=== PATIENT | male | born 1980 | race Caucasian/White ===

== ENCOUNTER → 2022-05-30 12:35 | Outpatient (BNVA) | payer MEDICARE, MEDICAID, SELFPAY | PROVIDERS: Visit Provider Nurse Practitioner Family | DX: B00.9 Herpesviral infection, unspecified (principal); F41.9 Anxiety disorder, unspecified; F20.9 Schizophrenia, unspecified; N52.9 Male erectile dysfunction, unspecified; E78.2 Mixed hyperlipidemia; Z76.89 Persons encountering health services in other specified circumstances; Z79.899 Other long term (current) drug therapy | CPT/HCPCS: 80053; 80061 ==

== ENCOUNTER → 2022-08-12 09:53 | Outpatient (BNVA) | payer MEDICARE, MEDICAID, SELFPAY | PROVIDERS: PCP Nurse Practitioner Family; Visit Provider Nurse Practitioner Family | DX: K59.00 Constipation, unspecified (principal) | CPT/HCPCS: 74018 ==

== ENCOUNTER 2022-09-02 07:45 | Emergency (ER) | payer MEDICARE, MEDICAID, SELFPAY ==
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
[2022-09-02 07:47] VITALS: BP 143/78; PULSE 79; RESP 18; TEMP 36.4; O2SAT 99; BMI 29.4
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
[2022-09-02] MEDS: orphenadrine 30 mg/mL Inj 2 mL 60 MG IM (08:31)
[2022-09-02] MEDS: ketorolac 30 mg/mL INJ 60 MG IM (08:31)
[2022-09-02 08:32] VITALS: BP 142/70
== END 2022-09-02 08:34 | disposition home or self-care (01) ==
PROVIDERS: Emergency Provider Family Medicine; PCP Nurse Practitioner Family
DX: S39.012A Strain of muscle, fascia and tendon of lower back, initial encounter (principal); V89.2XXA Person injured in unspecified motor-vehicle accident, traffic, initial encounter; M62.830 Muscle spasm of back
CPT/HCPCS: 72100; 80307; 96372; 99284; J1885; J2360

== ENCOUNTER 2023-07-22 15:41 | Inpatient (IN) | payer MEDICARE, OTHER, SELFPAY ==
[2023-07-22 16:04] VITALS: BP 111/62; PULSE 114; RESP 18; TEMP 36.7; O2SAT 99; BMI 27.2
--- NOTE | 2023-07-22 16:11 | ECG_ITS ---
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 Measurements Intervals [place] Rate: 115 P: 57 CA: 171 QRS: 40 QRSD: 88 T: 29 QT: 308 QTc: 426 Interpretive Statements SINUS TACHYCARDIA ABNORMAL RHYTHM ECG No previous ECG available for comparison Electronically Signed On 07-23-2023 10:53:08 CDT by Alverto Rivera M.D. [email or web address]
--- NOTE | 2023-07-22 16:20 | PC.PHAR ---
PT STATES HAS TAKEN PAIN MEDICATIONS IN THE PAST. NOT CURRENT MEDICATIONS ON PT PROFILE (LAST FILLED MEDS 10/2022)
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
[2023-07-22 16:58] LABS: Basophils # 0.1 10^3/uL (0.0-0.1); Basophils % 0.7 %; Eosinophils # 0.4 10^3/uL (0.0-0.8); Eosinophils % 2.8 %; Hematocrit 38.3 % (37-53); Lymphocytes # 1.2 10^3/uL (0.8-4.8); Lymphocytes % 9.2 %; Mean Corpuscular HGB Conc 32.4 g/dL (30-55); Mean Corpuscular Hemoglobin 27.3 pg (27-33); Mean Corpuscular Volume 84.2 fl (82-101); Mean Platelet Volume 9.4 fL (7.4-10.4); Monocytes # 0.7 10^3/uL (0.2-0.9); Monocytes % 5.5 %; Neutrophils # 10.44 10^3/uL (1.8-7.7); Neutrophils % 81.6 %; Nucleated Red Blood Cells % 0 %; Platelet Count 556 10^3/cmm (157-399); Red Blood Count 4.55 10^6/uL (3.85-5.65); Red Cell Distribution Width 14.9 % (12.1-15.1); White Blood Count 12.81 10^3/uL (3.29-11.43)
--- NOTE | 2023-07-22 17:06 | PC.NURSE ---
pt arrived to ed with wound to left ankle and back. pt had ankle surgery. pt does not remember when surgery was. pt had skin graft to left ankle. wound cleansed with saline and dressed with telfa/abd/kerlix and 6inch elastic bandage.
[2023-07-22 17:21] LABS: Alanine Aminotransferase 14 U/L (0-41); Albumin Level 4.1 g/dL (3.5-5.2); Alkaline Phosphatase 130 U/L (40-130); Anion Gap 16.7 (5-19); Aspartate Amino Transferase 11 U/L (0-40); Blood Urea Nitrogen 5 mg/dL (6-20); Calcium 9.7 mg/dL (8.5-10.5); Carbon Dioxide 25 mmol/L (22-29); Chloride 99 mmol/L (98-107); Globulin 3.7 g/dL (1.3-4.6); Glomerular Filtration Rate 145.7 mL/min (90-130); Glucose 86 mg/dL (65-115); Osmolality Calculated 281 mOsm/kg (285-295); Potassium 3.7 mmol/L (3.5-5.1); Sodium 137 mmol/L (136-145); Total Bilirubin 0.2 mg/dL (0.15-1.2); Total Protein 7.8 g/dL (6.6-8.7)
[2023-07-22 17:23] LABS: Acetaminophen < 5.0 ug/mL (10-30); Alcohol Level < 10 mg/dL (0-10); Salicylate < 0.3 mg/dL (3-10)
--- NOTE | 2023-07-22 18:24 | XRR_ITS ---
PROCEDURE INFORMATION: Exam: XR Left Tibia and Fibula Exam date and time: 07/22/2023 6:31 PM Age: 43 years old Clinical indication: Prior surgery; Surgery date: <1 month; Surgery type: Orif; Patient HX: C/O left lower leg pain; Additional info: Post op eval TECHNIQUE: Imaging protocol: Radiologic exam of the left tibia and fibula. Views: 2 views. COMPARISON: No relevant prior studies available. FINDINGS: Bones/joints: Old screw tracts are seen in the proximal/mid tibial diaphysis. There are jimbo and screw fixation of the tibiotalar joint postoperative changes present. There is a fracture of the medial malleolus with mild displacement present. There is likely also a healing fracture in the distal tibial metadiaphysis. There appears to be a displaced fragment of the lateral dome of the talus adjacent to the jimbo. Partially seen hindfoot fusion change. Jimbo fusion is also seen in a comminuted distal fibular fracture with near anatomic alignment. There may also be a healing nondisplaced fracture in the dome of the talus. Soft tissues: Mild soft tissue swelling. Skin sheri. XR/XR tibia fibula LT 2V 12106 IMPRESSION: ORIF for fusion of the tibiotalar joint in the distal fibula as described. Healing distal tibia and fibular fractures. Possible additional talar fractures.
[2023-07-22 20:34] VITALS: BP 150/79; PULSE 95; RESP 18; TEMP 37.1; O2SAT 97
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
[2023-07-22] MEDS: OLANZapine 5 mg ODT PO (21:40)
[2023-07-22] MEDS: ibuprofen 800 mg tablet PO (21:40)
[2023-07-22] MEDS: trazodone 50 mg Tablet PO (21:40)
[2023-07-22] MEDS: neomycin-poly-bacitracin oint 28 gm 1 APPLIC TOPICAL (21:53)
[2023-07-22 21:55] LABS: Add Urine Microscopic? YES; Bilirubin Urine Neg (Negative); Blood Urine Neg (Negative); Glucose Urine UA Norm (Normal); Ketones Urine 1+ (Negative); Leukocyte Esterase Urine Trace (Negative); Nitrate Urine Negative (Negative); Protein Urine Trace (Negative); Urine Appearance Cloudy (CLEAR); Urine Color Yellow (Yellow); Urobilinogen Urine Neg (Negative); pH Urine 5 (5-7)
[2023-07-22 21:56] LABS: Add Urine Culture? No; Amorphous Sediment Urine 1+ /hpf; Bacteria Urine TRACE /hpf; Calcium Oxalate Crystals Urine 15-25 /hpf; Mucus Urine 3+ /hpf; RBC Urine 0-4 /hpf (0-2); Squamous Epithelial Cell Urine 0-4 /hpf (0-5); WBC Urine 0-4 /hpf (0-5)
[2023-07-22 21:57] LABS: Amphetamines Screen Urine Negative (Negative); Barbiturates Screen Urine Negative (Negative); Benzodiazepines Screen Urine Negative (Negative); Cocaine Screen Urine Negative (Negative); Opiate Screen Urine Negative (Negative); PCP Screen Urine Negative (Negative); THC Screen Urine Negative (Negative)
--- NOTE | 2023-07-22 23:00 | PC.NURSE ---
PT CONTINUES TO BE EXTREMELY AGITATED CUSSING AT NURSING STAFF, DEMANDING DILAUDID FOR PAIN. DR. JERNIGAN NOTIFIED OF AGITATION. NEW ORDERS RECEIVED FOR GEODON 20 MG IM BID PRN AGITATION AND OR GEODON 40 MG PO BID AGITATION. ORDERS PLACED. NO NEW ORDERS WERE RECEIVED FOR PAIN. EDUCATION PROVIDED TO PT. PT CONTINUES TO CUSS AND SCREAM AT THIS TIME.
[2023-07-22] MEDS: ziprasidone 20 mg/mL SDV (23:19)
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
--- NOTE | 2023-07-23 01:21 | PC.NURSE ---
DR. STRONG FROM ER CALLED THIS RN AND GAVE ORDERS FOR PAIN CONTROL FOR LEFT FOOT. NEW ORDERS RECEIVED PERCOCET 5/325MG 1-2 TABS PO Q 6 HOURS PRN FOR PAIN. ORDERS PLACED. WENT TO EDUCATE PT BUT PT IS CURRENTLY RESTING WITH EYES CLOSED.
[2023-07-23 06:00] VITALS: RESP 16
[2023-07-23] MEDS: neomycin-poly-bacitracin oint 28 gm 1 APPLIC TOPICAL (09:51)
[2023-07-23 10:23] VITALS: RESP 17
[2023-07-23] MEDS: oxyCODONE-APAP 5-325 mg Tablet PO ×3 (10:23→23:53)
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
--- NOTE | 2023-07-23 13:20 | PC.NURSE ---
Patient stated he got sheri placed when he was at [facility] in [place], [place]. This RN attempted to call medical records, but they were closed. A nurse at [facility] was able to see that he had a joint and left ankle fusion in June, but did not have an exact date. Patient stated he believed they were placed about 3 weeks ago.
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
[2023-07-23 14:00] VITALS: BP 146/71; PULSE 106; RESP 18; TEMP 36.7; O2SAT 93
[2023-07-23] MEDS: LORazepam 2 mg Tablet PO (16:37)
[2023-07-23] MEDS: docusate sodium 100 mg Capsule PO (16:37)
--- NOTE | 2023-07-23 16:45 | PC.NURSE ---
Patient refused abilify po. He stated, why does the fucking doctor give out psychotropics? Why do I even fucking need this? I'm not taking no fucking psychotropics. This RN attempted to explain to him what abilify was used for, but he continued to talk even louder saying, it'll make me fucking fat. I'll take the stool softener. I'm not taking any of the other fucking pills.
--- NOTE | 2023-07-23 17:45 | PC.NURSE ---
At 1745 a copy of the patient's 96 Hour Hold Rights were given to the patient. Resident Medical Officer, Vick Morillo, was present at the time of presentation and reading of rights by salesperson household appliances, Heather Carmen. All questions answered.
[2023-07-23 17:53] VITALS: RESP 16
[2023-07-23] MEDS: ARIPiprazole 10 mg Tablet 5 MG PO (17:54)
[2023-07-23] MEDS: ibuprofen 800 mg tablet PO (20:12)
[2023-07-23 20:18] VITALS: BP 107/53; PULSE 109; RESP 16; TEMP 37.1; O2SAT 95
--- NOTE | 2023-07-23 22:32 | PC.NURSE ---
While speaking w/physician regarding pt back wound status, as well as behaviors NO received and noted to increase Abilify to 10mg qd beginning in the am.
[2023-07-23 23:53] VITALS: RESP 16
[2023-07-24] MEDS: calcium carbonate 500 mg Chew Tablet 1000 MG PO (03:08)
[2023-07-24 06:00] VITALS: BP 132/85; PULSE 84; RESP 17; TEMP 36.7; O2SAT 98
--- NOTE | 2023-07-24 09:02 | PC.NURSE ---
During assessment patient stated that he didn't want any psychotropic drugs from the doctor. 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 Patient stated that when he is on psychiatric drugs, he looks crazy and this makes him unhireable.
[2023-07-24] MEDS: ARIPiprazole 10 mg Tablet PO (09:08)
[2023-07-24 09:13] VITALS: RESP 16
[2023-07-24] MEDS: ibuprofen 800 mg tablet PO ×2 (09:13→16:42)
[2023-07-24] MEDS: oxyCODONE-APAP 5-325 mg Tablet PO ×2 (09:13→14:47)
[2023-07-24] MEDS: neomycin-poly-bacitracin oint 28 gm 1 APPLIC TOPICAL ×2 (09:15→17:53)
--- NOTE | 2023-07-24 09:15 | PC.NURSE ---
Dressing on left foot changed. Purulent drainage observed. [place] intact. Wound cleaned with normal saline. Telfa and THERESE applied to wound. wrapped with JASBIR bandage. Patient tolerated change fair.
--- NOTE | 2023-07-24 11:40 | P.NPUPN_ITS ---
Subjective NPU Subjective: Patient presented today unchanged and still with rambling, irritable banter but seeming to understand being on a hold and needing to take his medication. Continued on 11-13. Mental Status Exam MSE Comments: This is an overweight white male in hospital scrubs with limited grooming but adequate eye contact. Black immobilization boot on his left foot which is elevated. No abnormal movements except for significant psychomotor agitation. Somewhat cooperative with exam and moderate distress. Speech was increased rate and volume and moderately pressured. Mood not specifically described affect hyper/manic. Thought process linear at times but often disorganized with tangentiality and some stream of consciousness. Thought content: Patient denied suicidal or homicidal ideation, there were no delusions reported but clear paranoid, persecutory and grandiose delusions noted some possibly bizarre delusions as well, he denied auditory or visual hallucinations. Attention and concentration were limited and memory appeared intermittently reliable but none were formally tested. He is alert and oriented times person and place. Insight, judgment and impulse control impaired. Vitals/I&O/Wt Last Vital Signs Temp 98.1 F 07/24/23 06:00 Pulse 84 07/24/23 06:00 Resp 16 07/24/23 09:13 BP 132/85 07/24/23 06:00 Pulse Ox 98 07/24/23 06:00 O2 Del Method Room Air 07/23/23 20:18 Weight last 48 hrs Weight 86.183 kg Weight 86.183 kg Data NPU 07/22/23 16:41 07/22/23 16:41 A&P Assessment and plan (1) Mariaa: (2) History of mariaa: (3) Schizoaffective disorder, bipolar type: (4) Postoperative external wound disruption: Plan This is a 43 -year-old, white male, with history of multiple hospitalizations and outpatient services and multiple medication trials with 1 inpatient stay here and some distant outpatient services here who presents with history of addiction with unclear current use and past mental health challenges with clear mariaa on presentation here with history of mariaa. 1. Started Abilify 5 mg p.o. daily and increased to 10 mg tomorrow with ultimate plan for long-acting injectable. 2. Encourage individual, group, and milieu therapy. 3. Continue q-15-minute checks for safety. 4. Patient on 96-hour hold due to psychosis and impairment of impulse control. 5. Consult with dr Rolon fro management of left foot. Involuntary Hold Information 96 Hour Hold: 96 Hour Involuntary Admission: No Attestations NPU 2 Medical Necessity Statement*: Inpatient hospitalization is medically necessary and the clinically appropriate intervention, at this time. We will monitor medications and make changes as indicated. Likely length of stay is 7-10 days. Coding Level of Care Code Acute Code for Chg Fwd Diagnoses Mariaa F30.9 History of mariaa Z86.59 Schizoaffective disorder, bipolar type F25.0 Postoperative external wound disruption T81.31XA
--- NOTE | 2023-07-24 13:47 | P.CONIM_ITS ---
Providers/Reason For Consult Consulting Physician/Specialty*: Ketan Rolon D.P.M. Reason for Consult*: Left ankle fracture Attending Physician: Judd León MD Primary Care Provider: Marielle Grant NP History of Present Illness History of Present Illness Rigo Srivastava is a 43 year old male admitted to Neuro[facility] Unit 07/22/2023 for manic episode, has history of bipolar schizoaffective disorder. History of polysubstance abuse. Patient is a poor historian he states that he has a history of left ankle trauma that he sustained from a fall earlier this year. He members being in an external fixator for a long period of time and several surgeries. He is unable to recall what surgeries were done, where they were done or when they were done exactly. Awaiting records from facility where his procedures were performed. Patient denies any subjective nausea, vomiting, fe or[place], chills, shortness of breath or chest pain. Review of Systems General: Reports: 10 or more systems reviewed and unremarkable except in HPI and below Const: Denies: fever(s) or chills Eyes: Denies: change in vision Card: Denies: chest pain or palpitations Resp: Denies: dyspnea or productive cough GI: Denies: abdominal pain, nausea or vomiting : Denies: flank pain Musc: Reports: extremity swelling, joint stiffness and deformity Skin/Breast: Reports: sores, dry skin and nail changes; Denies: erythema, changes in skin color or change in hair Neuro: Reports: numbness in extremities, sensory changes and difficulty walking Psych: Denies: suicidal ideation Endo: Denies: change in body appearance Eulogio/Lymph: Denies: tender lymph nodes Medications/Allergies Home Medications Medication Instructions Recorded Confirmed Last Taken Type No Known Home Medications 07/22/23 07/22/23 Unknown History Allergies Allergy/AdvReac Type Severity Reaction Status Date / Time diphenhydramine Allergy Unknown Verified 07/22/23 22:53 [From Benadryl] guaifenesin [From Robitussin] Allergy ALGY-Hives Verified 07/22/23 22:53 Current Medications Generic Name Dose Route Start Last Admin Trade Name Freq PRN Reason Stop Dose Admin Aripiprazole 10 mg 07/24/23 09:00 07/24/23 09:08 Aripiprazole 10 Mg Tablet PO 10 mg DAILY LUCERO Administration Calcium Carbonate 1,000 mg 07/24/23 02:53 07/24/23 03:08 Calcium Carbonate 500 Mg Chew Tablet PO 1,000 mg Q4H PRN Administration HEARTBURN Docusate Sodium 100 mg 07/23/23 16:28 07/23/23 16:37 Docusate Sodium 100 Mg Capsule PO 100 mg DAILY PRN Administration CONSTIPATION Ibuprofen 800 mg 07/22/23 19:56 07/24/23 09:13 Ibuprofen 800 Mg Tablet PO 800 mg Q8H PRN Administration ANKLE PAIN Lorazepam 2 mg 07/23/23 16:28 07/23/23 16:37 Lorazepam 2 Mg Tablet PO 2 mg Q4H PRN Administration ANXIETY Neomycin/Polymyxin/Bacitracin 1 applic 07/22/23 21:45 07/24/23 09:15 Fwntxivq-Atwz-Mvpsaykory Oint 28 Gm TOPICAL 1 applic BID LUCERO Administration Olanzapine 5 mg 07/22/23 18:03 07/22/23 21:40 Olanzapine 5 Mg Odt PO 5 mg Q4H PRN Administration Agitation/Psychosis Oxycodone/Acetaminophen 1 - 2 tab 07/23/23 01:17 07/24/23 09:13 Oxycodone-Apap 5-325 Mg Tablet PO 1 tab Q6H PRN Administration MODERATE TO SEVERE PAIN Trazodone HCl 50 mg 07/22/23 18:03 07/22/23 21:40 Trazodone 50 Mg Tablet PO 50 mg BEDTIME PRN Administration SLEEP PFSH Acute PFSH: Social History Smoking and tobacco status: never smoked Vitals/I&O/Wt Last Vital Signs Temp 98.1 F 07/24/23 06:00 Pulse 84 07/24/23 06:00 Resp 16 07/24/23 09:13 BP 132/85 07/24/23 06:00 Pulse Ox 98 07/24/23 06:00 O2 Del Method Room Air 07/23/23 20:18 Weight last 48 hrs Weight 190 lb Weight 190 lb Physical Exam Narrative: GENERAL: Patient is alert and oriented ?3 and in no acute distress. The following is a focused left lower extremity exam. VASCULAR: Dorsalis pedis palpable bilaterally. Posterior tibial arteries palpable. Capillary refill time less than 3 seconds to the distal hallux bilaterally. Calf is supple and nontender proximally and distally. Edema to the left lower extremity. NEUROLOGICAL: Protective sensation intact to light touch. DERMATOLOGICAL: Grade 2 wound with granular base, what appears to be a collagen and silicone bilayer graft secured by sheri at the left medial malleolus measures 6.8 cm x 6.4 cm, no deep structures exposed, no purulence, no periwound erythema. Pin sites x2 at the tibia as well as at the calcaneus are fully epithelialized from external fixator. MUSCULOSKELETAL: No range of motion appreciated to the left ankle or subtalar joint. No crepitus with palpation of adjacent soft tissue surrounding the wound left medial malleolus. Able to wiggle toes on command. No pain with posterior calf squeeze, left. Data 07/22/23 16:41 07/22/23 16:41 A&P Assessment and plan (1) Pilon fracture of left tibia: X-rays right ankle 3 view shows tibial talocalcaneal nail with 2 traversing screws through midshaft of the tibia and 2 calcaneal screws with 1 coursing into the talus crossing the subtalar joint. Skin sheri from bilayer graft also appreciated at the medial left ankle. Able to see remnants from external fixator with 2 tibial pin holes, 1 calcaneal pin hole and the fifth metatarsal pinhole. Intramedullary K wire fixation of the left fibula. Comminuted fracture with loose fragments of the distal diaphysis of the left fibula. Comminuted fracture of the medial malleolus as well as metaphyseal diaphyseal junction of the distal tibia, left extending into the ankle mortise. The articular surfaces of the tibiotalar joint do not appear to be prepped for arthrodesis. Intramedullary nail intact without lucency or failure. Articular surfaces of the subtalar joint also appear intact without having been prepped for arthrodesis. Given the open nature of his fracture his soft tissue may not have been of quality to prep joint for arthrodesis and this may require staged surgical approach of soft tissue healing followed by hardware removal versus arthrodesis at that time. Will require original operative reports and clinical notes to further assess the timeline. Both tibial and fibular fracture show incomplete osseous healing. For this reason patient will require continued nonweightbearing. Qualifiers: Encounter type: sequela Fracture type: open Fracture alignment: nondisplaced (2) Fracture of distal end of left fibula: Qualifiers: Encounter type: sequela Fracture type: open Fracture morphology: other fracture (3) Non-pressure chronic ulcer of left ankle with fat layer exposed: Clinically stable at this time. Advised once daily dressing change of Adaptic, sterile gauze, ABD pad and Abbe wrap. Plan Awaiting records from originating facility where his surgeries were performed. Will require further information on management of his wound graft. Daily dressing change left medial ankle as above Incomplete osseous healing of distal tibial and fibular fractures Nonweightbearing at this time left ankle, immobilized with cam boot, elevate while resting, he is utilizing crutches. Once records are received from originating facility we will assess biologic graft management. Coding Level of Care Code Acute Code for [facility] Diagnoses Pilon fracture of left tibia S82.872A Encounter type: sequela Fracture type: open Fracture alignment: nondisplaced Fracture of distal end of left fibula S82.832A Encounter type: sequela Fracture type: open Fracture morphology: other fracture Non-pressure chronic ulcer of left ankle with fat layer exposed L97.322
--- NOTE | 2023-07-24 13:51 | PC.NURSE ---
When this nurse was sitting with patient, patient stated that if he returned to [place], he would take a gun and shoot everybody up because of how everybody is down there . Dr. León notified.
[2023-07-24 14:00] VITALS: BP 144/82; PULSE 103; RESP 18; TEMP 36.8; O2SAT 98
[2023-07-24] MEDS: sennosides 8.6 mg Tablet PO (14:38)
[2023-07-24 14:47] VITALS: RESP 16
--- NOTE | 2023-07-24 16:42 | PC.NURSE ---
Patient educated on importance of frequent position changes. Patient informed of potentials for DVT or pneumonia from being sedentary. Patient stated that he understood but that he didn't think he was at risk.
--- NOTE | 2023-07-24 17:38 | PC.NURSE ---
Changed dressing on patient's back at around 1600. Patient's wounds are pink and healthy looking. No drainage observed. Applied THERESE and Telfa. Tolerated well by patient
--- NOTE | 2023-07-24 18:30 | PC.NURSE ---
called Dr. Rolon's cell phone to see if he was coming to assess patient today. No answer. Left a message at [id number]. Dr. León is aware.
--- NOTE | 2023-07-24 19:35 | XRR_ITS ---
PROCEDURE INFORMATION: Exam: XR Left Ankle Exam date and time: 07/24/2023 7:48 PM Age: 43 years old Clinical indication: Pain; Ankle; Left; Prior surgery; Surgery date: <1 month; Additional info: Left ankle fracture TECHNIQUE: Imaging protocol: Radiologic exam of the left ankle. Views: 3 or more views. COMPARISON: CR (LOW EXM, ) 07/22/2023 6:31 PM FINDINGS: Bones/joints: Comminuted fracture distal fibula status post internal fixation with metallic wire again identified not significantly changed. Comminuted fracture distal left tibia status post internal fixation with metallic hardware and also findings of tibial talar and subtalar arthrodesis using metallic case and screws not significantly changed. Fracture of the medial aspect of the talar dome and also mildly displaced fracture medial malleolus again identified not significantly changed. Screw tracts in the mid tibia and 5th metatarsal are identified presumably from prior external fixator placement. Soft tissues: Normal. XR/XR ankle LT min 3V* [id number] IMPRESSION: Fractures of the left ankle as described, status post internal fixation with metallic hardware not significantly changed from 07/22/2023.
[2023-07-24] MEDS: OLANZapine 5 mg ODT PO (20:02)
[2023-07-24] MEDS: gabapentin 300 mg Capsule PO (20:02)
[2023-07-24] MEDS: cyclobenzaprine 10 mg Tablet 5 MG PO (20:02)
[2023-07-24 20:30] VITALS: BP 132/81; PULSE 95; RESP 20; O2SAT 98
[2023-07-25] MEDS: ibuprofen 800 mg tablet PO ×3 (00:50→17:58)
[2023-07-25] MEDS: trazodone 50 mg Tablet PO ×2 (00:54→21:40)
[2023-07-25 06:00] VITALS: BP 126/65; PULSE 110; RESP 18; O2SAT 98
[2023-07-25] MEDS: gabapentin 300 mg Capsule PO ×3 (09:56→20:51)
[2023-07-25] MEDS: ARIPiprazole 10 mg Tablet PO (09:56)
[2023-07-25] MEDS: neomycin-poly-bacitracin oint 28 gm 1 APPLIC TOPICAL ×2 (09:58→18:00)
[2023-07-25] MEDS: cyclobenzaprine 10 mg Tablet 5 MG PO ×2 (10:10→17:58)
[2023-07-25 13:24] VITALS: BP 136/84; PULSE 89; RESP 17; TEMP 36.8; O2SAT 100
--- NOTE | 2023-07-25 15:09 | P.NPUPN_ITS ---
Subjective NPU Subjective: Patient presented today continuing to be quite pedantic and generally demanding. He did report that the trazodone was helpful for sleep last night. Continue to express resistance to the Abilify but denied having any feelings suggesting him being overmedicated. We continue to talk about his identified mariaa and need for medication for safe discharge. Mental Status Exam MSE Comments: This is an overweight white male in hospital scrubs with limited grooming but adequate eye contact. Black immobilization boot on his left foot which is elevated. No abnormal movements except for significant psychomotor agitation. Somewhat cooperative with exam and moderate distress. Speech was increased rate and volume and moderately pressured. Mood not specifically described affect hyper/manic. Thought process linear at times but often disorganized with tangentiality and some stream of consciousness. Thought content: Patient denied suicidal or homicidal ideation, there were no delusions reported but clear paranoid, persecutory and grandiose delusions noted some possibly bizarre delusions as well, he denied auditory or visual hallucinations. Attention and concentration were limited and memory appeared intermittently reliable but none were formally tested. He is alert and oriented times person and place. Insight, judgment and impulse control impaired. Vitals/I&O/Wt Last Vital Signs Temp 98.8 F 07/25/23 22:00 Pulse 106 H 07/25/23 22:00 Resp 18 07/25/23 22:00 BP 124/81 07/25/23 22:00 Pulse Ox 98 07/25/23 22:00 O2 Del Method Room Air 07/25/23 22:00 Data NPU 07/22/23 16:41 07/22/23 16:41 Micro: Microbiology 07/23/23 20:25 Gram Stain - Final Back Wound Culture - Preliminary Microbiology 07/23/23 20:25 Back Gram Stain - Final 07/23/23 20:25 Back Wound Culture - Preliminary A&P Assessment and plan (1) Mariaa: (2) History of mariaa: (3) Schizoaffective disorder, bipolar type: (4) Postoperative external wound disruption: Plan This is a 43 -year-old, white male, with history of multiple hospitalizations and outpatient services and multiple medication trials with 1 inpatient stay here and some distant outpatient services here who presents with history of addiction with unclear current use and past mental health challenges with clear mariaa on presentation here with history of mariaa. 1. Started Abilify 5 mg p.o. daily and increased to 10 mg with ultimate plan for long-acting injectable. Increase to 15 mg p.o. daily. 2. Encourage individual, group, and milieu therapy. 3. Continue q-15-minute checks for safety. 4. Patient on 96-hour hold due to psychosis and impairment of impulse control. 5. Consulted with dr Rolon fro management of left foot. A ppreciate involvement and will follow recommendations as indicated. 6. Consult PT/OT about usage of crutches as he is nonweightbearing clearly does not understand mechanics of doing that with crutches. Involuntary Hold Information 96 Hour Hold: 96 Hour Involuntary Admission: No Attestations NPU Medical Necessity Statement*: Inpatient hospitalization is medically necessary and the clinically appropriate intervention, at this time. We will monitor medications and make changes as indicated. Likely length of stay is 7-10 days. Coding Level of Care Code Acute Code for [facility] Diagnoses Mariaa F30.9 History of mariaa Z86.59 Schizoaffective disorder, bipolar type F25.0 Postoperative external wound disruption T81.31XA
[2023-07-25 22:00] VITALS: BP 124/81; PULSE 106; RESP 18; TEMP 37.1; O2SAT 98
[2023-07-25] MEDS: water for injection-sterile 10 ML 999 ML (23:29)
[2023-07-25] MEDS: ziprasidone 20 mg/mL SDV (23:29)
--- NOTE | 2023-07-25 23:30 | PC.NURSE ---
Pt is presenting extremely manic and paranoid, as another pt stopped to talk to the SURFACER OPERATOR sitting w/him. Pt began stating that jesus manuel pradeep is talking to that meir who is trying to kill me . Attempted to speak to pt who con't to perseverate that co-pt was going to kill him. Instructed pt that he was going to receive medication if he could not calm down. I don't care give me the fucking shot . this is after having to switch out the SURFACER OPERATOR sitting with him because he was belligerent w/her, calling her a fat ass bitch go eat another big mac . Increased staff presence, redirection and one on one care unsuccessful. IM [place] administered for increased paranoia, agitation w/inability to redirect.
[2023-07-26 06:00] VITALS: RESP 17
[2023-07-26] MEDS: gabapentin 300 mg Capsule PO ×3 (07:55→19:51)
[2023-07-26] MEDS: ARIPiprazole 10 mg Tablet 15 MG PO (07:56)
[2023-07-26 09:37] LABS: Basophils # 0.1 10^3/uL (0.0-0.1); Basophils % 0.7 %; Eosinophils # 0.4 10^3/uL (0.0-0.8); Eosinophils % 3.9 %; Hematocrit 36.2 % (37-53); Lymphocytes % 10.2 %; Mean Corpuscular HGB Conc 31.5 g/dL (30-55); Mean Corpuscular Hemoglobin 27.1 pg (27-33); Mean Corpuscular Volume 86.2 fl (82-101); Mean Platelet Volume 9.2 fL (7.4-10.4); Monocytes # 0.5 10^3/uL (0.2-0.9); Monocytes % 4.8 %; Neutrophils # 8.09 10^3/uL (1.8-7.7); Nucleated Red Blood Cells % 0 %; Platelet Count 429 10^3/cmm (157-399); Red Cell Distribution Width 15.1 % (12.1-15.1); White Blood Count 10.11 10^3/uL (3.29-11.43)
[2023-07-26 09:55] LABS: Erythrocyte Sedimentation Rate 71 mm/hr (0-10)
[2023-07-26 09:56] LABS: Alanine Aminotransferase 8 U/L (0-41); Albumin Level 3.6 g/dL (3.5-5.2); Alkaline Phosphatase 115 U/L (40-130); Anion Gap 15.4 (5-19); Aspartate Amino Transferase 7 U/L (0-40); Blood Urea Nitrogen 6 mg/dL (6-20); C Reactive Protein 58.9 mg/L (0.0-4.9); Calcium 9.3 mg/dL (8.5-10.5); Carbon Dioxide 24 mmol/L (22-29); Chloride 102 mmol/L (98-107); Globulin 3.3 g/dL (1.3-4.6); Glucose 180 mg/dL (65-115); Osmolality Calculated 286 mOsm/kg (285-295); Potassium 4.4 mmol/L (3.5-5.1); Sodium 137 mmol/L (136-145); Total Bilirubin 0.2 mg/dL (0.15-1.2); Total Protein 6.9 g/dL (6.6-8.7)
[2023-07-26 14:00] VITALS: BP 135/73; PULSE 103; RESP 16; TEMP 37.3; O2SAT 97
--- NOTE | 2023-07-26 15:08 | PC.NURSE ---
DR. CARBONE TO UNIT TO REMOVE USMAN, ALL USMAN REMOVED, VERBAL ORDER GIVEN TO DRESS WOUND ONCE DAILY WITH HYDROFERA BLUE
--- NOTE | 2023-07-26 16:41 | P.NPUPN_ITS ---
Subjective NPU Subjective: Patient presented today unchanged and quite pressured. He spoke of many different things barely taking a breath between thoughts. After 20 minutes he asked if I would be coming and spend at least an hour talking. He denied any side effects related to medication. Mental Status Exam MSE Comments: This is an overweight white male in hospital scrubs with limited grooming but adequate eye contact. Black immobilization boot on his left foot which is elevated. No abnormal movements except for significant psychomotor agitation. Somewhat cooperative with exam and moderate distress. Speech was increased rate and volume and pressured. Mood not specifically described affect hyper/manic. Thought process linear at times but often disorganized with tangentiality and some stream of consciousness. Thought content: Patient denied suicidal or homicidal ideation, there were no delusions reported but clear paranoid, persecutory and grandiose delusions noted some possibly bizarre delusions as well, he denied auditory or visual hallucinations. Attention and concentration were limited and memory appeared intermittently reliable but none were formally tested. He is alert and oriented times person and place. Insight, judgment and impulse control impaired. Vitals/I&O/Wt Last Vital Signs Temp 99.2 F 07/26/23 14:00 Pulse 103 H 07/26/23 14:00 Resp 16 07/26/23 14:00 BP 135/73 07/26/23 14:00 Pulse Ox 97 07/26/23 14:00 O2 Del Method Room Air 07/25/23 22:00 07/26/23 07/26/23 07/26/23 06:59 14:59 22:59 Intake Total Balance Data NPU 07/26/23 09:23 07/26/23 09:23 Micro: Microbiology 07/23/23 20:25 Gram Stain - Final Back Wound Culture - Preliminary Microbiology 07/23/23 20:25 Back Gram Stain - Final 07/23/23 20:25 Back Wound Culture - Preliminary A&P Assessment and plan (1) Mariaa: (2) History of mariaa: (3) Schizoaffective disorder, bipolar type: (4) Postoperative external wound disruption: Plan This is a 43 -year-old, white male, with history of multiple hospitalizations and outpatient services and multiple medication trials with 1 inpatient stay here and some distant outpatient services here who presents with history of addiction with unclear current use and past mental health challenges with clear mariaa on presentation here with history of mariaa. 1. Started Abilify 5 mg p.o. daily and increased to 10 mg with ultimate plan for long-acting injectable. Increased to 15 mg p.o. daily. 2. Encourage individual, group, and milieu therapy. 3. Continue q-15-minute checks for safety. 4. Patient on 96-hour hold due to psychosis and impairment of impulse control. 5. Consulted with dr Rolon fro management of left foot. Appreciate involvement and will follow recommendations as indicated. 6. Consult PT/OT about usage of crutches as he is nonweightbearing clearly does not understand mechanics of doing that with crutches. Involuntary Hold Information 96 Hour Hold: 96 Hour Involuntary Admission: No Attestations NPU 2 Medical Necessity Statement*: Inpatient hospitalization is medically necessary and the clinically appropriate intervention, at this time. We will monitor medications and make changes as indicated. Likely length of stay is 7-10 days. Coding Level of Care Code Acute Code for [facility] Fwd Diagnoses Mariaa F30.9 History of mariaa Z86.59 Schizoaffective disorder, bipolar type F25.0 Postoperative external wound disruption T81.31XA
[2023-07-26] MEDS: trazodone 100 mg Tablet PO (19:51)
[2023-07-26] MEDS: OLANZapine 5 mg ODT PO (19:51)
[2023-07-26 20:51] VITALS: BP 131/74; PULSE 108; RESP 20; TEMP 37.4; O2SAT 97
--- NOTE | 2023-07-26 21:28 | P.PN_ITS ---
Subjective Subjective: Patient seen bedside, denies any acute events overnight. Tolerating regular diet. Patient denies any subjective nausea, vomiting, fever, chills, shortness of breath or chest pain. Nursing staff has been performing Hydrofera Blue dressing changes daily. Vitals/I&O/Wt Last Vital Signs Temp 99.3 F 07/26/23 20:51 Pulse 108 H 07/26/23 20:51 Resp 20 H 07/26/23 20:51 BP 131/74 07/26/23 20:51 Pulse Ox 97 07/26/23 20:51 O2 Del Method Room Air 07/26/23 20:51 07/26/23 07/26/23 07/26/23 06:59 14:59 22:59 Intake Total Balance Physical Exam Narrative: GENERAL: Patient is alert and oriented ?3 and in no acute distress. The following is a focused left lower extremity exam. VASCULAR: Dorsalis pedis palpable bilaterally. Posterior tibial arteries palpable. Capillary refill time less than 3 seconds to the distal hallux bilaterally. Calf is supple and nontender proximally and distally. Edema to the left lower extremity. NEUROLOGICAL: Protective sensation intact to light touch. DERMATOLOGICAL: Grade 2 wound with granular base, collagen and silicone bilayer graft secured by sheri at the left medial malleolus measures 6.8 cm x 6.4 cm, no deep structures exposed, no purulence, no periwound erythema. Pin sites x2 at the tibia as well as at the calcaneus are fully epithelialized from external fixator. MUSCULOSKELETAL: No range of motion appreciated to the left ankle or subtalar joint. No crepitus with palpation of adjacent soft tissue surrounding the wound left medial malleolus. Able to wiggle toes on command. No pain with posterior calf squeeze, left. Data 07/30/23 03:55 07/30/23 03:55 Micro: Microbiology 07/23/23 20:25 Gram Stain - Final Back Wound Culture - Preliminary A&P Assessment and plan (1) Pilon fracture of left tibia: X-rays right ankle 3 views taken 07/24/2023 demonstrates tibial talocalcaneal nail with 2 traversing screws through midshaft of the tibia and 2 calcaneal scre ws with 1 coursing into the talus crossing the subtalar joint. Skin sheri from bilayer graft also appreciated at the medial left ankle. Able to see remnants from external fixator with 2 tibial pin holes, 1 calcaneal pin hole and the fifth metatarsal pinhole. Intramedullary K wire fixation of the left fibula. Comminuted fracture with loose fragments of the distal diaphysis of the left fibula. Comminuted fracture of the medial malleolus as well as metaphyseal diaphyseal junction of the distal tibia, left extending into the ankle mortise. The articular surfaces of the tibiotalar joint do not appear to be prepped for arthrodesis. Intramedullary nail intact without lucency or failure. Articular surfaces of the subtalar joint also appear intact without having been prepped for arthrodesis. Given the open nature of his fracture his soft tissue may not have been of quality to prep joint for arthrodesis and this may require staged surgical approach of soft tissue healing followed by hardware removal versus arthrodesis at that time. Will require original operative reports and clinical notes to further assess the timeline. Both tibial and fibular fracture show incomplete osseous healing. For this reason patient will require continued nonweightbearing. Qualifiers: Encounter type: sequela Fracture type: open Fracture alignment: nondisplaced (2) Fracture of distal end of left fibula: Qualifiers: Encounter type: sequela Fracture type: open Fracture morphology: other fracture (3) Non-pressure chronic ulcer of left ankle with fat layer exposed: collagen and silicone bilayer graft secured by sheri at the left medial malleolus measures 6.8 cm x 6.4 cm -After receiving documentation from originating facility this graft was applied June 30, 2023. -Skin sheri and silicone layer were removed from the left medial ankle, largely granular base without surrounding erythema or purulence appreciated, does not probe to bone, no deep structures exposed. -We will continue with wound care dressings with once daily Hydrofera Blue dressing change. Plan Daily dressing change left medial ankle as above Incomplete osseous healing of distal tibial and fibular fractures Nonweightbearing at this time left ankle, immobilized with cam boot, elevate while resting, he is utilizing crutches. We will continue to monitor left ankle, at this time his soft tissue envelope is stable without acute signs of infection. Attestations Medical Necessity Statement*: Left pilon fracture, open Coding Level of Care Code Acute Code for [facility] Diagnoses Pilon fracture of left tibia S82.872M Encounter type: sequela Fracture type: open Fracture alignment: nondisplaced Fracture of distal end of left fibula S82.833Z Encounter type: sequela Fracture type: open Fracture morphology: other fracture Non-pressure chronic ulcer of left ankle with fat layer exposed L97.744
[2023-07-26] MEDS: haloperidol 5 mg Tablet PO (23:59)
[2023-07-27 06:00] VITALS: BP 130/92; PULSE 109; RESP 18; TEMP 36.5; O2SAT 97
[2023-07-27] MEDS: ARIPiprazole 10 mg Tablet 15 MG PO (09:12)
[2023-07-27] MEDS: gabapentin 300 mg Capsule PO ×3 (09:13→19:49)
--- NOTE | 2023-07-27 12:14 | P.NPUPN_ITS ---
Subjective NPU Subjective: Patient presented today reporting that he feels okay we will continue to talk about having Hughes like the ability to read minds etc. He continued on one-to-one he continued to take the medication as prescribed. He denied any side effects with continue to talk about fear of gaining weight. Mental Status Exam MSE Comments: This is an overweight white male in hospital scrubs with limited grooming but adequate eye contact. Black immobilization boot on his left foot which is elevated. No abnormal movements except for significant psychomotor agitation. Somewhat cooperative with exam and moderate distress. Speech was increased rate and volume and pressured. Mood not specifically described affect hyper/manic. Thought process linear at times but often disorganized with tangentiality and some stream of consciousness. Thought content: Patient denied suicidal or homicidal ideation, there were no delusions reported but clear paranoid, persecutory and grandiose delusions noted some possibly bizarre delusions as well, he denied auditory or visual hallucinations. Attention and concentration were limited and memory appeared intermittently reliable but none were formally tested. He is alert and oriented times person and place. Insight, judgment and impulse control impaired. Vitals/I&O/Wt Last Vital Signs Temp 97.7 F 07/27/23 06:00 Pulse 109 H 07/27/23 06:00 Resp 18 07/27/23 06:00 BP 130/92 07/27/23 06:00 Pulse Ox 97 07/27/23 06:00 O2 Del Method Room Air 07/27/23 06:00 Data NPU 07/26/23 09:23 07/26/23 09:23 Micro: Microbiology 07/23/23 20:25 Gram Stain - Final Back Wound Culture - Preliminary Microbiology 07/23/23 20:25 Back Gram Stain - Final 07/23/23 20:25 Back Wound Culture - Preliminary A&P Assessment and plan (1) Mariaa: (2) History of mariaa: (3) Schizoaffective disorder, bipolar type: (4) Postoperative external wound disruption: Plan This is a 43 -year-old, white male, with history of multiple hospitalizations and outpatient services and multiple medication trials with 1 inpatient stay here and some distant outpatient services here who presents with history of addiction with unclear current use and past mental health challenges with clear mariaa on presentation here with history of mariaa. 1. Started Abilify 5 mg p.o. daily and increased to 10 mg with ultimate plan for long-acting injectable. Increased to 15 mg p.o. daily. Increase to 20 mg p.o. daily. 2. Encourage individual, group, and milieu therapy. 3. Continue one-to-one checks for safety given his wraps for his lower leg/foot injury as well as boot. 4. Patient on 96-hour hold due to psychosis and impairment of impulse control. Submitted 21-day hold paperwork. 5. Consulted with dr Rolon fro management of left foot. Appreciate involvement and will follow recommendations as indicated. 6. Consult PT/OT about usage of crutches as he is nonweightbea ring clearly does not understand mechanics of doing that with crutches. Involuntary Hold Information 96 Hour Hold: 96 Hour Involuntary Admission: No Attestations NPU Medical Necessity Statement*: Inpatient hospitalization is medically necessary and the clinically appropriate intervention, at this time. We will monitor medications and make changes as indicated. Likely length of stay is 7-10 days. Coding Level of Care Code Acute Code for [facility] Fwd Diagnoses Mariaa F30.9 History of mariaa Z86.59 Schizoaffective disorder, bipolar type F25.0 Postoperative external wound disruption T81.31XA
[2023-07-27 14:00] VITALS: BP 122/71; PULSE 120; RESP 17; TEMP 37.3; O2SAT 97
[2023-07-27] MEDS: ARIPiprazole 10 mg Tablet 5 MG PO (14:03)
[2023-07-27] MEDS: OLANZapine 5 mg ODT PO (19:49)
[2023-07-27] MEDS: trazodone 100 mg Tablet PO (19:49)
[2023-07-27] MEDS: magnesium hydroxide 30 mL UDC PO (20:02)
[2023-07-27 20:03] VITALS: BP 130/69; PULSE 121; RESP 20; TEMP 37.7; O2SAT 94
--- NOTE | 2023-07-27 20:04 | PC.NURSE ---
This Tech walked into patients room to obtain vitals. Patient started stating that he is tired of the mind games that these bitches here are playing on him. Patient stated that he is being treated like a dog by all the women here and that he will now start treating them like dogs. Patient then proceeded to state that if he sees some of the bitches that work here on the street that he will knock them the fuck out and go to long-term laughing and joking about it. Patient said that he doesn't mind doing a few years of jail time for beating up a women. Patient then referred back to the incident that happened Monday night with MARGARET Castaneda. Patient started calling her a fat bitch and that if he sees her out in the street that he will knock that bitch on her ass. This tech tried to deescalate patient and told him that he can not be threatening staff. Patient then stated that if he saw that fat bitch on the street he would fucking kill her. This tech again told patient that he can not be making threats. Patient proceeded to go on about there being a hidden camera in his room and that he was being treated like shit and he is the one that got shot with poison. Informed patient that the staff did not shoot him up with poison and that the shot was necessary in order to help him calm down, relax and rest.
--- NOTE | 2023-07-27 20:34 | PC.NURSE ---
UPON SHIFT CHANGE PT WAS OBSERVED AND HEARD CUSSING AT STAFF, CALLING NAMES AND BEING VERY DISRESPECTFUL, CALLING THE [employer] AND FUCKING BITCHES. WHEN THIS RN CAME INTO THE ROOM PT STOPPED AND ACTED LIKE NOTHING EVER HAPPENED. PT WAS ENCOURAGED TO BE KIND TO THE STAFF IF AT ALL POSSIBLE. PT STATED OH YEAH OF COURSE I ALWAYS AM. PT REQUESTED HE BE GIVEN SOMETHING FOR ANXIETY AND SLEEP. THIS RN STATED THAT I COULD GIVE HIM TRAZODONE AND ZYDIS. PT THEN REPORTED HE CAN NOT REMEMBER HIS LAST BM AND WOULD LIKE 'SOMETHING FOR THAT TOO. NEW ORDERS RECEIVED FOR MOM 30 MLS DAILY PRN. BOWEL SOUNDS HYPO ACTIVE IN ALL FOUR QUADRANTS, ABDOMEN SOFT, NON TENDER. PT DENIES SI/HI AND AVH AT THIS TIME. PT DENIES PAIN WELL TO HIS LEFT FOOT. LET FOOT HAS JASBIR BANDAGE ON IT PT REFUSES TO WEAR CAM BOOT. EDUCATION PROVIDED ON THE BENEFITS OF FOLLOWING ORDERS BUT PT CONTINUES TO DECLINE. PULSES ARE PALPABLE TO LEFT FOOT, PALE IN APPEARANCE, ABLE TO MOVE TOES SLIGHTLY. ALL QUESTIONS WERE ANSWERED AND SUPPORT VOICED.
--- NOTE | 2023-07-27 23:53 | PC.NURSE ---
PT HAS BEEN RESTING INTERMITTENTLY SINCE APPROXIMATELY 2129. ZYDIS 5 MG AND TRAZODONE 100 MG ARE DEEMED EFFECTIVE.
[2023-07-28] MEDS: ziprasidone hcl 40 mg Capsule PO (00:15)
[2023-07-28] MEDS: trazodone 100 mg Tablet PO ×3 (00:15→23:30)
--- NOTE | 2023-07-28 00:17 | PC.NURSE ---
PT WOKE UP AT 0015 YELLING AND SCREAMING AT STAFF, I HAVEN'T EVEN FUCKING SLEPT CAN'T YOU JUST GIVE ME A SHOT OF ATIVAN SO I CAN SLEEP. PT WAS EDUCATED THAT THE DROscar DOES NOT GIVE ORDERS FOR ATIVAN INJECTIONS SO PTS CAN SLEEP, BUT I WOULD BE MORE THAN HAPPY TO GET A REPEAT DOSE OF TRAZODONE AND SOMETHING FOR ANXIETY. PT WAS GIVEN TRAZODONE 100 MG FOR INSOMNIA AND GEODON 40 MG PO FOR EXTREME AGITATION. PT TOOK MEDICATIONS WITHOUT DIFFICULTY BUT DID CONTINUE TO CUSS AND REQUEST ATIVAN IM.
--- NOTE | 2023-07-28 05:19 | PC.NURSE ---
PT HAS BEEN SLEEPING SINCE LAST ADMINISTRATION OF TRAZODONE 50 MG AND GEODON 40 MG AT 0015. PT FELL ASLEEP AT APPROXIMATELY 0030, WOKE UP BRIEFLY AT 130-145 AM, STARTED CUSSING AT THE PSA STATED I'M GONNA BE AWAKE FOR 48 DAYS NOW JUST LIKE THE LAST TIME THEY GAVE ME THAT STUFF. PT THEN PULLED HIS COVERS UP AND WAS ASLEEP SHORTLY AFTER AND HAS BEEN ASLEEP SINCE. PT IS CURRENTLY RESTING WITH EYES CLOSED.
[2023-07-28 06:00] VITALS: RESP 18
--- NOTE | 2023-07-28 10:28 | P.NPUPN_ITS ---
Subjective NPU Subjective: Patient presented today reporting that he is interested in desirous of calling Social Security department to make sure his check does not go somewhere in his money get taken. Reports of him being less pressured and verbose or receiving and noted to seem true with him being slightly less pressured. Otherwise he reports he feels the medication is okay and he denied any side effects. Mental Status Exam MSE Comments: This is an overweight white male in hospital scrubs with limited grooming but adequate eye contact. Black immobilization boot on his left foot which is elevated. No abnormal movements except for significant psychomotor agitation. Somewhat cooperative with exam in mild to moderate distress. Speech was increased rate and volume and pressured, but less so. Mood not specifically described affect hyper/manic. Thought process linear at times but often disorganized with tangentiality and some stream of consciousness. Thought content: Patient denied suicidal or homicidal ideation, there were no delusions reported but clear paranoid, persecutory and grandiose delusions noted some possibly bizarre delusions as well, he denied auditory or visual hallucinations. Attention and concentration were limited and memory appeared intermittently reliable but none were formally tested. He is alert and oriented times person and place. Insight, judgment and impulse control impaired. Vitals/I&O/Wt Last Vital Signs Temp 99.8 F H 07/27/23 20:03 Pulse 121 H 07/27/23 20:03 Resp 18 07/28/23 06:00 BP 130/69 07/27/23 20:03 Pulse Ox 94 07/27/23 20:03 O2 Del Method Room Air 07/27/23 20:03 Data NPU 07/26/23 09:23 07/26/23 09:23 Micro: Microbiology 07/23/23 20:25 Gram Stain - Final Back Wound Culture - Final Microbiology 07/23/23 20:25 Back Gram Stain - Final 07/23/23 20:25 Back Wound Culture - Final A&P Assessment and plan (1) Mariaa: (2) History of mariaa: (3) Schizoaffective disorder, bipolar type: (4) Postoperative external wound disruption: Plan This is a 43 -year-old, white male, with history of multiple hospitalizations and outpatient services and multiple medication trials with 1 inpatient stay here and some distant outpatient services here who presents with history of addiction with unclear current use and past mental health challenges with clear mariaa on presentation here with history of mariaa. 1. Started Abilify 5 mg p.o. daily and increased to 10 mg with ultimate plan for long-acting injectable. Increased to 15 mg p.o. daily. Increased to 20 mg p.o. daily. 2. Encourage individual, group, and milieu therapy. 3. Continue one-to-one checks for safety given his wraps for his lower leg/foot injury as well as boot. 4. Patient on 96-hour hold due to psychosis and impairment of impulse control. Submitted 21-day hold paperwork. 5. Consulted with dr Rolon fro management of left foot. Appreciate involvement and will follow recommendations as indicated. 6. Consult PT/OT about usage of crutches as he is nonweight bearing clearly does not understand mechanics of doing that with crutches. Involuntary Hold Information 96 Hour Hold: 96 Hour Involuntary Admission: No Attestations NPU Medical Necessity Statement*: Inpatient hospitalization is medically necessary and the clinically appropriate intervention, at this time. We will monitor medications and make changes as indicated. Likely length of stay is 7-10 days. Coding Level of Care Code Acute Code for [facility] Fwd Diagnoses Mariaa F30.9 History of mariaa Z86.59 Schizoaffective disorder, bipolar type F25.0 Postoperative external wound disruption T81.31XA
[2023-07-28] MEDS: gabapentin 300 mg Capsule PO ×3 (10:34→20:04)
[2023-07-28] MEDS: ARIPiprazole 10 mg Tablet 20 MG PO (10:34)
[2023-07-28] MEDS: neomycin-poly-bacitracin oint 28 gm 1 APPLIC TOPICAL (10:36)
[2023-07-28 13:27] VITALS: BP 131/79; PULSE 111; RESP 16; TEMP 37.3; O2SAT 97
--- NOTE | 2023-07-28 15:02 | PC.NURSE ---
Redressed patient's left ankle/foot. Warm, dry and intact. Wound is beefy red and appears to be healing well. Drainage is serous. Patient complains of no issues except for mild pain at this time.
[2023-07-28] MEDS: OLANZapine 5 mg ODT PO (20:04)
[2023-07-28] MEDS: haloperidol 5 mg Tablet PO (20:04)
[2023-07-28 20:11] VITALS: BP 115/77; PULSE 121; RESP 18; TEMP 37.4; O2SAT 97
[2023-07-28] MEDS: ibuprofen 800 mg tablet PO (23:30)
[2023-07-29 06:00] VITALS: RESP 18
--- NOTE | 2023-07-29 06:22 | PC.NURSE ---
Unable to obtain vitals from patient. Patient would not wake up to provide arm. RR have been documented.
[2023-07-29] MEDS: ARIPiprazole 10 mg Tablet 20 MG PO (08:09)
[2023-07-29] MEDS: gabapentin 300 mg Capsule PO ×3 (08:09→20:17)
--- NOTE | 2023-07-29 08:43 | P.NPUPN_ITS ---
Subjective NPU Subjective: Patient presented today reporting continued focus on issues surrounding his functionality after discharge. He seems to be more goal-directed and continued reports of being less pressured and less verbose. Able to disengage conversation easier. Able to allow people to leave the room without apparent anxiety that conversation needs to continue her more questions need to be asked. Some complaints about his recovering left lower limb which we agreed we would put question to hospitalist about the next steps. Mental Status Exam MSE Comments: This is an overweight white male in hospital scrubs with limited grooming but adequate eye contact. Black immobilization boot on his left foot which is elevated. No abnormal movements except for significant psychomotor agitation. Somewhat cooperative with exam in mild to moderate distress. Speech was increased rate and volume and pressured, but less so. Mood not specifically described affect hyper/manic. Thought process linear at times but often disorganized with tangentiality and some stream of consciousness. Thought content: Patient denied suicidal or homicidal ideation, there were no delusions reported but clear paranoid, persecutory and grandiose delusions noted some possibly bizarre delusions as well, he denied auditory or visual hallucinations. Attention and concentration were limited and memory appeared intermittently reliable but none were formally tested. He is alert and oriented times person and place. Insight, judgment and impulse control impaired. Vitals/I&O/Wt Last Vital Signs Temp 99.3 F 07/28/23 20:11 Pulse 121 H 07/28/23 20:11 Resp 18 07/29/23 06:00 BP 115/77 07/28/23 20:11 Pulse Ox 97 07/28/23 20:11 O2 Del Method Room Air 07/28/23 13:27 Data NPU 07/30/23 03:55 07/30/23 03:55 A&P Assessment and plan (1) Mariaa: (2) History of mariaa: (3) Schizoaffective disorder, bipolar type: (4) Postoperative external wound disruption: Plan This is a 43 -year-old, white male, with history of multiple hospitalizations and outpatient services and multiple medication trials with 1 inpatient stay here and some distant outpatient services here who presents with history of addiction with unclear current use and past mental health challenges with clear mariaa on presentation here with history of mariaa. 1. Started Abilify 5 mg p.o. daily and increased to 10 mg with ultimate plan for long-acting injectable. Increased to 15 mg p.o. daily. Increased to 20 mg p.o. daily. Consider additional increase in the next few days. 2. Encourage individual, group, and milieu therapy. 3. Continue one-to-one checks for safety given his wraps for his lower leg/foot injury as well as boot. 4. Patient on 96-hour hold due to psychosis and impairment of impulse control. Submitted 21-day hold paperwork. 5. Consulted with dr Rolno fro management of left foot. Appreciate involvement and will follow recommendations as indicated. 6. Consult PT/OT about usage of crutches as he is nonweightbear ing clearly does not understand mechanics of doing that with crutches. 7. Notable purulence in his affected joint/left ankle/foot. We will get a hospitalist consult and follow recommendations as indicated. Involuntary Hold Information 96 Hour Hold: 96 Hour Involuntary Admission: No Attestations NPU Medical Necessity Statement*: Inpatient hospitalization is medically necessary and the clinically appropriate intervention, at this time. We will monitor medications and make changes as indicated. Likely length of stay is 7-10 days. Coding Level of Care Code Acute Code for [facility] Fwd Diagnoses Mariaa F30.9 History of mariaa Z86.59 Schizoaffective disorder, bipolar type F25.0 Postoperative external wound disruption T81.31XA
[2023-07-29] MEDS: ibuprofen 800 mg tablet PO ×2 (13:32→23:19)
[2023-07-29 14:00] VITALS: BP 117/71; PULSE 106; RESP 15; TEMP 37.1; O2SAT 96
--- NOTE | 2023-07-29 18:28 | XRR_ITS ---
PROCEDURE INFORMATION: Exam: XR Left Ankle Exam date and time: 07/29/2023 7:08 PM Age: 43 years old Clinical indication: Swelling, leg or foot; Prior surgery; Surgery date: <1 month; Surgery type: Ankle orif; Patient HX: Unhealing wounds from orif surgery; Additional info: Sepsis, portable TECHNIQUE: Imaging protocol: Radiologic exam of the left ankle. Views: 3 or more views. COMPARISON: CR (LOW EXM, ) 07/24/2023 7:48 PM FINDINGS: Bones/joints: Intramedullary case transfixing the distal tibia, talus and anterior calcaneus bones. There is an orthopedic pin-the fibular fracture. Two orthopedic screws are seen- the calcaneus, 1 of them extending into the tail bone. The underlying fractures of the distal tibia, fibula and possibly the talus. No evidence of bone destruction but there is mild osseous sclerosis, which may reflect early healing changes. Soft tissues: There is soft tissue swelling. XR/XR ankle LT min 3V* [id number] IMPRESSION: 1. Orthopedic hardware for ORIF of multiple ankle fractures as described above. 2. No evidence of bone destruction but there is mild osseous sclerosis, which may reflect early healing changes. Infection/osteomyelitis may present a similar picture.
--- NOTE | 2023-07-29 18:50 | PC.NURSE ---
Dressing change, wound L ankle, when undressed orange pink purulent drainage poured from a small hole in the L lateral malleolus area. Area is soft to touch, red and painful. all dressings removed on foot and not redressed until seen by hospitalist. Call placed and Dr Miranda to see. Received orders for lab, Xrays and wound culture. Message left for Dr León
[2023-07-29 19:15] LABS: Hematocrit 36.6 % (37-53); Mean Corpuscular Hemoglobin 27.1 pg (27-33); Mean Corpuscular Volume 84.7 fl (82-101); Mean Platelet Volume 9.4 fL (7.4-10.4); Platelet Count 458 10^3/cmm (157-399); Red Blood Count 4.32 10^6/uL (3.85-5.65); Red Cell Distribution Width 14.6 % (12.1-15.1); White Blood Count 12.32 10^3/uL (3.29-11.43)
[2023-07-29 19:22] LABS: Erythrocyte Sedimentation Rate 46 mm/hr (0-10)
--- NOTE | 2023-07-29 19:30 | CTR_ITS ---
PROCEDURE INFORMATION: Exam: CT Left Lower Extremity Without Contrast Exam date and time: 07/29/2023 8:23 PM Age: 43 years old Clinical indication: Pain; Swelling, leg or foot; Left; Prior surgery; Surgery date: 1-6 months; Patient HX: Non healing fracture and open wounds post ankle orif surgery extending into calcaneus. Diffuse swelling to ankle and foot. ; Additional info: Complicated fracture TECHNIQUE: Imaging protocol: CT of the left lower extremity without contrast was performed. Radiation optimization: All CT scans at this facility use at least one of these dose optimization techniques: automated exposure control; mA and/or kV adjustment per patient size (includes targeted exams where dose is matched to clinical indication); or iterative reconstruction. REPORTING DATA: Count of CT and Cardiac NM exams in prior 12 months: This patient has received 0 known CTs and 0 known cardiac nuclear medicine studies in the 12 months prior to the current study. COMPARISON: CR (LOW EXM, ) 07/29/2023 7:08 PM RADIATION DOSE METRICS: Total DLP (mGy-cm): 1255.99 FINDINGS: Bones/joints: There are fractures of the distal tibia involving the base of the medial malleolus and medial plafond as well as the lateral malleolus. Fracture through the talus bone involving the articular surface the proximal calcaneus bone. There is an intramedullary case transfixing the distal tibia, through the plafond, through the talus and anterior navicular bones. This appears in stable position. Orthopedic pin transfixing a comminuted mildly displaced fracture of the distal fibula. Two orthopedic screws entering via the posterior calcaneus, extending through the anterior talus and the anterior aspect of the talus bone. There is an nonmetallic screw transfixing the distal 1st metatarsal bone. Cortical erosion along the medial aspect of the navicular bone. Mottled appearance of all the ankle and tarsal bones suspicious for osteomyelitis. There is gas along the intramedullary case in the distal tibia (49-50). Additionally, gas bubbles are seen in the tibial posterior malleolus (50-56). Soft tissues: Along the dorsal aspect of the plantar fascia, there is a 9 x 1.8 cm collection with some enhancement of the plantar fascia. This may represent a hematoma, possible developing abscess. There is soft tissue swelling/stranding surrounding the ankle and in Kager's triangle. CT/CT lower leg LT wo con* [id number] IMPRESSION: 1. Orthopedic hardware for ORIF of multiple ankle fractures as described above. 2. Mottled appearance of ankle and tarsal bones, gas in the distal tibia are suspicious for infection/osteomyelitis. 3. There is a plantar collection that may represent hematoma or developing abscess.
[2023-07-29 19:35] LABS: Alanine Aminotransferase 10 U/L (0-41); Albumin Level 3.6 g/dL (3.5-5.2); Alkaline Phosphatase 133 U/L (40-130); Anion Gap 13.1 (5-19); Aspartate Amino Transferase 8 U/L (0-40); Blood Urea Nitrogen 12 mg/dL (6-20); C Reactive Protein 114.4 mg/L (0.0-4.9); Calcium 9.3 mg/dL (8.5-10.5); Carbon Dioxide 28 mmol/L (22-29); Chloride 99 mmol/L (98-107); Globulin 3.6 g/dL (1.3-4.6); Glucose 112 mg/dL (65-115); Osmolality Calculated 283 mOsm/kg (285-295); Potassium 4.1 mmol/L (3.5-5.1); Sodium 136 mmol/L (136-145); Total Bilirubin 0.2 mg/dL (0.15-1.2); Total Protein 7.2 g/dL (6.6-8.7)
[2023-07-29 19:42] LABS: Procalcitonin 0.06 ng/mL (0-0.5)
[2023-07-29 19:59] VITALS: BP 124/78; PULSE 110; RESP 18; TEMP 37.3; O2SAT 97
[2023-07-29 19:59] LABS: Absolute Eosinophils 0.2 10^3/cmm (0.0-0.7); Absolute Neutrophil 9.4 10^3/cmm (1.4-6.5); Absolute Segmented Neutrophil 9.4 10/cmm (1.6-7.1); Eosinophils 2 %; Lymphocytes 15 %; Lymphocytes Absolute 1.8 10^3/cmm (1.2-3.4); Monocytes Absolute 0.9 10^3/cmm (0.1-0.6); Platelet Estimate Increased (Normal); Segmented Neutrophils 76 %; Total Cells Counted 100 (0-100)
[2023-07-29 20:14] LABS: Vitamin B12 362 pg/mL (232-1245)
[2023-07-29] MEDS: sulfamethoxazole-trimeth DS 160-800 mg Tablet 1 TAB PO (20:17)
[2023-07-29] MEDS: amoxicillin-clav 875-125 mg Tablet 1 TAB PO (20:17)
[2023-07-29] MEDS: trazodone 100 mg Tablet PO ×2 (20:17→21:34)
[2023-07-29] MEDS: neomycin-poly-bacitracin oint 28 gm 1 APPLIC TOPICAL (20:41)
--- NOTE | 2023-07-29 21:18 | P.CONIM_ITS ---
Providers/Reason For Consult Consulting Physician/Specialty*: Dr. Downs/internal medicine Reason for Consult*: Purulent discharge at open wound Requesting Physician: Dr. León Attending Physician: Judd León MD Primary Care Provider: Marielle Grant NP History of Present Illness History of Present Illness Rigo Srivastava is a 43 year old male with past medical history of schizophrenia, multiple traumatic injuries requiring multiple surgical interventions earlier this year when he had hepatic laceration, hepatic artery dissection, spinal fractures, left ankle fracture complicated by spinal wound dehiscence requiring further surgical debridements and was discharged to [facility] in April of this year and was readmitted back to [facility] in early May with acute psychosis due to noncompliance to schedule for any medications and was later discharged back home in early June [address] [facility] on 07/23 with concerns for psychosis and joanna and is currently on 21-day hold. During this admission patient has been seen by podiatry who are awaiting his operative note from [facility] and is getting daily Hydrofera Blue wound dressings. Podiatry team is not available through today until 08/02 and when dressings were being changed today nursing staff noticed purulent discharge from one of the wounds hence medical team was consulted. On review of chart it seems patient has been having low-grade fevers since admission with Tmax of 99.8, patient has been complaining of pain in his ankle though has been noncompliant to nonweightbearing as per the nursing staff. Blood work appreciated. CT of the leg was concerning for mottling of the ankle and tarsal bones with gas in the distal tibia suspicious of possible oste omyelitis hence patient was transferred to medical [facility] for IV antibiotics. Review of Systems General: Reports: 10 or more systems reviewed and unremarkable except in HPI and below Const: Denies: fever(s), chills, body aches, change in appetite, change in weight, malaise, night sweats, diaphoresis, change in sleep pattern, daytime sleepiness or snoring Eyes: Denies: change in vision, blurry vision, photophobia, eye discomfort or eye discharge ENMT: Denies: throat pain, enlarged tonsils, hoarseness, mouth pain, oral sores, dry mouth, tinnitus, nasal congestion or post nasal drip Card: Denies: chest pain, palpitations, irregular heart rhythm, edema, swelling of feet/ankles, lightheadedness, syncope, pre-syncope, dyspnea on exertion, orthopnea, leg pain with exertion or acrocyanosis Resp: Denies: dyspnea, productive cough, non-productive cough, wheezing, strid or, pain on inspiration, change in phlegm color, hemoptysis or chest congestion GI: Denies: abdominal pain, nausea, vomiting, hematemesis, coffee ground emesis, dysphagia, heartburn, diarrhea, constipation, bloating, GI cramping, change in bowel habits, pain on defecation, hematochezia or melena : Denies: flank pain, difficulty urinating, dysuria, urinary frequency, urinary urgency, urinary hesitancy, urinary dribbling, difficulty starting urination, change in urine stream, nocturia or hematuria Musc: Denies: neck pain, back pain, extremity pain, joint pain, joint swelling, joint redness, joint stiffness or limited range of motion Neuro: Denies: headache(s), numbness in extremities, weakness in extremities, sensory changes, lack of coordination, difficulty walking, frequent falls, dizziness, vertigo, confusion, Slurred speech present, difficulty communicating thoughts or seizure-like activity Psych: Denies: anxiety, depression, mood swings, panic attacks, hopelessness or irritability Endo: Denies: polyuria, polydipsia, tired all the time, cold intolerance, excessive sweating, flushing or heat intolerance Eulogio/Lymph: Denies: easy bruising or easy bleeding All/Imm: Denies: tongue swelling, facial swelling or acute wheezing Medications/Allergies Home Medications Medication Instructions Recorded Confirmed Last Taken Type No Known Home Medications 07/22/23 07/22/23 Unknown History Allergies Allergy/AdvReac Type Severity Reaction Status Date / Time diphenhydramine Allergy Unknown Verified 07/22/23 22:53 [From Benadryl] guaifenesin [From Robitussin] Allergy ALGY-Hives Verified 07/22/23 22:53 Current Medications Generic Name Dose Route Start Last Admin Trade Name Altonq PRN Reason Stop Dose Admin Amoxicillin/Clavulanate Potassium 1 tab 07/29/23 19:40 07/29/23 20:17 Amoxicillin-Clav 875-125 Mg Tablet PO 1 tab BID LUCERO Administration Protocol Aripiprazole 20 mg 07/28/23 09:00 07/29/23 08:09 Aripiprazole 10 Mg Tablet PO 20 mg DAILY LUCERO Administration Calcium Carbonate 1,000 mg 07/24/23 02:53 07/24/23 03:08 Calcium Carbonate 500 Mg Chew Tablet PO 1,000 mg Q4H PRN Administration HEARTBURN Cyclobenzaprine HCl 5 mg 07/24/23 19:34 07/25/23 17:58 Cyclobenzaprine 10 Mg Tablet PO 5 mg TID PRN Administration MUSCLE SPASMS Docusate Sodium 100 mg 07/23/23 16:28 07/23/23 16:37 Docusate Sodium 100 Mg Capsule PO 100 mg DAILY PRN Administration CONSTIPATION Gabapentin 300 mg 07/24/23 21:00 07/29/23 20:17 Gabapentin 300 Mg Capsule PO 300 mg TID LUCERO Administration Haloperidol 5 mg 07/22/23 18:03 07/28/23 20:04 Haloperidol 5 Mg Tablet PO 5 mg Q4H PRN Administration AGITATION Ibuprofen 800 mg 07/22/23 19:56 07/29/23 13:32 Ibuprofen 800 Mg Tablet PO 800 mg Q8H PRN Administration ANKLE PAIN Lorazepam 2 mg 07/23/23 16:28 07/23/23 16:37 Lorazepam 2 Mg Tablet PO 2 mg Q4H PRN Administration ANXIETY Magnesium Hydroxide 30 ml 07/27/23 19:44 07/27/23 20:02 Magnesium Hydroxide 30 Ml Udc PO 30 ml DAILY PRN Administration CONSTIPATION Neomycin/Polymyxin/Bacitracin 1 applic 07/26/23 21:00 07/29/23 20:44 [id number] Oint 28 Gm TOPICAL Not Given 0900,2100 [facility] Olanzapine 5 mg 07/22/23 18:03 07/28/23 20:04 Olanzapine 5 Mg Odt PO 5 mg Q4H PRN Administration Agitation/Psychosis Trazodone HCl 100 mg 07/26/23 16:40 07/29/23 20:17 Trazodone 100 Mg Tablet PO 100 mg BEDTIME PRN Administration SLEEP Trimethoprim/Sulfamethoxazole 1 tab 07/29/23 19:40 07/29/23 20:17 Sulfamethoxazole-Trimeth Ds 160-800 Mg Tablet PO 1 tab BID LUCERO Administration Protocol Ziprasidone 40 mg 07/22/23 23:00 07/28/23 00:15 Ziprasidone Hcl 40 Mg Capsule PO 40 mg 0700,1700 PRN Administration AGITATION PFSH Acute PFSH: Medical History (Updated 07/29/23 @ 22:39 by Raheel Cole MD) Dehiscence of operative wound Fracture of sternum History of joanna Liver laceration Schizoaffective disorder, bipolar type Social History (Updated 07/29/23 @ 22:45 by Raheel Cole MD) Smoking and tobacco status: former smoker Substance/Drug Use: unknown Caregiver/support person: No Housing: Homeless Vitals/I&O/Wt Last Vital Signs Temp 99.2 F 07/29/23 19:59 Pulse 110 H 07/29/23 19:59 Resp 18 07/29/23 19:59 BP 124/78 07/29/23 19:59 Pulse Ox 97 07/29/23 19:59 O2 Del Method Room Air 07/29/23 14:00 Physical Exam Narrative: General: No acute distress, AO x3 HEENT: PERRLA, pupils bilaterally equal and reactive Chest: Normal vesicular breath sounds, no added sounds, equal good air entry bilaterally CVS: S1-S2 regular, no murmurs, no tachycardia, no gallops, no rubs Abdomen: Soft, nontender, no organomegaly, bowel sounds present Neuro: No focal deficits, no facial deformity, AO x3, power 5/5 in all limbs Skin: NARRATIVE SKIN EXAM: Multiple healed wounds present in the back and thoracolumbar spinal area without any discharge with an old normal saturated dressing present in the thoracic region which was removed. Dressing of the left ankle removed with picture of the wounds as below. Serosanguineous fluid expressed from the lateral pinhole scabbed wound, graft present on medial malleolus with pinhole wound through which mildly purulent discharge was expressed. OTHER: Data 07/29/23 18:53 07/29/23 18:53 Other Labs: Radiology Impressions Tibia/Fibula X-Ray 07/22/23 18:24 IMPRESSION: ORIF for fusion of the tibiotalar joint in the distal fibula as described. Healing distal tibia and fibular fractures. Possible additional talar fractures. Ankle X-Ray 07/29/23 18:28 IMPRESSION: 1. Orthopedic hardware for ORIF of multiple ankle fractures as described above. 2. No evidence of bone destruction but there is mild osseous sclerosis, which may reflect early healing changes. Infection/osteomyelitis may present a similar picture. Lower Extremity CT 07/29/23 19:30 IMPRESSION: 1. Orthopedic hardware for ORIF of multiple ankle fractures as described above. 2. Mottled appearance of ankle and tarsal bones, gas in the distal tibia are suspicious for infection/osteomyelitis. 3. There is a plantar collection that may represent hematoma or developing abscess. ADDENDUM: 07/29/232129 THIS REPORT CONTAINS FINDINGS THAT MAY BE CRITICAL TO PATIENT CARE. The findings were verbally communicated via telephone conference with RAHEEL COLE at 9:29 PM CDT on 07/29/2023. The findings were acknowledged and understood. Laboratory Results WBC 12.32 10^3/uL (3.29-11.43) H 07/29/23 18:53 RBC 4.32 10^6/uL (3.85-5.65) 07/29/23 18:53 Hgb 11.70 g/dL (11.27-16.99) 07/29/23 18:53 Hct 36.6 % (37-53) L 07/29/23 18:53 MCV 84.7 fl (82-101) 07/29/23 18:53 MCH 27.1 pg (27-33) 07/29/23 18:53 MCHC 32.0 g/dL (30-55) 07/29/23 18:53 RDW 14.6 % (12.1-15.1) 07/29/23 18:53 Plt Count 458 10^3/cmm (157-399) H 07/29/23 18:53 MPV 9.4 fL (7.4-10.4) 07/29/23 18:53 Neut % (Auto) 80.0 % 07/26/23 09:23 Lymph % (Auto) 10.2 % 07/26/23 09:23 Duchesne % (Auto) 4.8 % 07/26/23 09:23 Eos % (Auto) 3.9 % 07/26/23 09: Baso % (Auto) 0.7 % 07/26/23 09:23 Neut # (Auto) 8.09 10^3/uL (1.8-7.7) H 07/26/23 09:23 Lymph # (Auto) 1.0 10^3/uL (0.8-4.8) 07/26/23 09:23 Duchesne # (Auto) 0.5 10^3/uL (0.2-0.9) 07/26/23 09: Eos # (Auto) 0.4 10^3/uL (0.0-0.8) 07/26/23 09: Baso # (Auto) 0.1 10^3/uL (0.0-0.1) 07/26/23: Nucleated RBC % (auto) 0 % 07/26/23 09: Total Counted 100 (0-100) 07/29/23 18:53 Atypical Lymphs % 0.0 % (0-5) 07/29/23 18:53 Absolute Neutrophils 9.4 10^3/cmm (1.4-6.5) H 07/29/23 18:53 Segmented Neutrophils 76 % 07/29/23 18:53 Abs Segm Neuts (Man) 9.4 10/cmm (1.6-7.1) H 07/29/23 18:53 Band Neutrophils 0.0 % 07/29/23 18:53 Abs Band Neuts (Man) 0.0 10^3/cmm (0.0-1.2) 07/29/23 18:53 Absolute Lymphocytes 1.8 10^3/cmm (1.2-3.4) 07/29/23 18:53 Lymphocytes (Manual) 15 % 07/29/23 18:53 Monocytes (Manual) 7.0 % 07/29/23 18:53 Absolute Monocytes 0.9 10^3/cmm (0.1-0.6) H 07/29/23 18:53 Eosinophils (Manual) 2 % 07/29/23 18:53 Absolute Eosinophils 0.2 10^3/cmm (0.0-0.7) 07/29/23 18:53 Basophils (Manual) 0.0 % 07/29/23 18:53 Absolute Basophils 0.0 10^3/cmm (0.0-0.2) 07/29/23 18:53 Nucleated RBCs # 0.0 /100WBC 07/26/23 09: Platelet Estimate Increased (Normal) 07/29/23 18:53 ESR 46 mm/hr (0-10) H 07/29/23 18:53 Sodium 136 mmol/L (136-145) 07/29/23 18:53 Potassium 4.1 mmol/L (3.5-5.1) 07/29/23 18:53 Chloride 99 mmol/L (98-107) 07/29/23 18:53 Carbon Dioxide 28 mmol/L (22-29) 07/29/23 18:53 Anion Gap 13.1 (5-19) 07/29/23 18:53 BUN 12 mg/dL (6-20) 07/29/23 18:53 Creatinine 0.7 mg/dL (0.7-1.2) 07/29/23 18:53 GFR Calculation 122.0 mL/min (90-130) 07/29/23 18:53 Glucose 112 mg/dL (65-115) 07/29/23 18:53 Calculated Osmolality 283 mOsm/kg (285-295) L 07/29/23 18:53 Calcium 9.3 mg/dL (8.5-10.5) 07/29/23 18:53 Total Bilirubin 0.2 mg/dL (0.15-1.2) 07/29/23 18:53 AST 8 U/L (0-40) 07/29/23 18:53 ALT 10 U/L (0-41) 07/29/23 18:53 Alkaline Phosphatase 133 U/L (40-130) H 07/29/23 18:53 C-Reactive Protein 114.4 mg/L (0.0-4.9) H 07/29/23 18:53 Total Protein 7.2 g/dL (6.6-8.7) 07/29/23 18:53 Albumin 3.6 g/dL (3.5-5.2) 07/29/23 18:53 Globulin 3.6 g/dL (1.3-4.6) 07/29/23 18:53 Vitamin B12 362 pg/mL (232-1245) 07/29/23 18:53 Procalcitonin 0.06 ng/mL (0-0.5) 07/29/23 18:53 Urine Color Yellow (Yellow) 07/22/23 21:30 Urine Appearance Cloudy (CLEAR) A 07/22/23 21:30 Urine pH 5 (5-7) 07/22/23 21:30 Ur Specific Anabel 1.020 (1.005-1.030) 07/22/23 21:30 Urine Protein Trace (Negative) 07/22/23 21:30 Urine Glucose (UA) Norm (Normal) 07/22/23 21:30 Urine Ketones 1+ (Negative) H 07/22/23 21:30 Urine Blood Neg (Negative) 07/22/23 21:30 Urine Nitrate Negative (Negative) 07/22/23 21:30 Urine Bilirubin Neg (Negative) 07/22/23 21:30 Urine Urobilinogen Neg mg/dL (Negative) 07/22/23 21:30 Ur Leukocyte Esterase Trace (Negative) H 07/22/23 21:30 Urine RBC 0-4 /hpf (0-2) H 07/22/23 21:30 Urine WBC 0-4 /hpf (0-5) H 07/22/23 21:30 Ur Squamous Epith Cells 0-4 /hpf (0-5) H 07/22/23 21:30 Calcium Oxalate Crystal 15-25 /hpf H 07/22/23 21:30 Amorphous Sediment 1+ /hpf 07/22/23 21:30 Urine Bacteria Trace /hpf (NONE) 07/22/23 21:30 Urine Mucus 3+ /hpf 07/22/23 21:30 Salicylates < 0.3 mg/dL (3-10) L 07/22/23 16:41 Urine Opiates Screen Negative ng/mL (Negative) 07/22/23 21:30 Acetaminophen < 5.0 ug/mL (10-30) L 07/22/23 16:41 Ur Barbiturates Screen Negative ng/mL (Negative) 07/22/23 21:30 Ur Phencyclidine Scrn Negative ng/mL (Negative) 07/22/23 21:30 Ur Amphetamines Screen Negative ng/mL (Negative) 07/22/23 21:30 U Benzodiazepines Scrn Negative ng/mL (Negative) 07/22/23 21:30 Urine Cocaine Screen Negative ng/mL (Negative) 07/22/23 21:30 U Marijuana (THC) Screen Negative ng/mL (Negative) 07/22/23 21:30 Ethyl Alcohol < 10 mg/dL (0-10) 07/22/23 16:41 Micro: Microbiology 07/29/23 19:00 Blood Culture - Preliminary Blood SPECIMEN COLLECTED 07/29/23 18:53 Blood Culture - Preliminary Blood SPECIMEN COLLECTED A&P Assessment and plan (1) Osteomyelitis of ankle, left, acute: (2) Non-pressure chronic ulcer of left ankle with fat layer exposed: (3) Fracture of distal end of left fibula: Qualifiers: Encounter type: sequela Fracture type: open Fracture morphology: other fracture (4) Schizoaffective disorder, bipolar type: (5) History of joanna: Plan 43-year-old gentleman admitted to Neuropsych Unit with history of joanna and schizophrenia with recent history of multiple traumatic fractures requiring multiple or including complicated open fracture of left ankle requiring external fixator hardware which was internalized at an [facility] admitted to Neuropsych Unit for joanna being followed by podiatry having concerns for purulence drainage from the wound found to have CT changes concerning for osteomyelitis. Osteomyelitis: Appreciate CT ankle results with concerns for mottling of the ankle and tarsal bones and gas at distal tibial end. Along with the possibility of a developing abscess versus hematoma. Patient has mild leukocytosis, elevated ESR and CRP with multiple spikes of low- grade fever since admission. Transfer to [facility] floor for IV antibiotics. Check blood cultures, MRSA swab, wound culture. For now start patient IV vancomycin and Zosyn. Podiatry already on board. Will get in touch with them in a.m. tomorrow for further recommendation or possible surgical exploration. Nonweightbearing as per podiatry team. Wound care as per podiatry team with Hydrofera Blue. PT/OT. Spinal wound healing well without concerns for localized infection. Dressings with ABDs and triple antibiotic daily. Schizophrenia/joanna: Treatment as per psychiatric team. Full code Regular diet Lovenox for DVT prophylaxis Famotidine for PUD prophylaxis Care plan discussed in detail with the patient. All the questions were answered. Patient agreeable to the treatment plan. Consult Attestations Medical Necessity Statement: Requires further hospitalization for 21-day hold by psychiatric team for joanna and schizoaffective disorder, suicidal ideation with concerns for acute osteomyelitis of left ankle with recent history of complicated open wound fracture with internal hardware Diagnoses Osteomyelitis of ankle, left, acute M86.172 Non-pressure chronic ulcer of left ankle with fat layer exposed L97.322 Fracture of distal end of left fibula S82.832A Encounter type: sequela Fracture type: open Fracture morphology: other fracture Schizoaffective disorder, bipolar type F25.0 History of joanna Z86.59
[2023-07-29 22:58] VITALS: BP 132/71; PULSE 112; RESP 16; TEMP 37.2; O2SAT 97
--- NOTE | 2023-07-29 23:04 | PC.NURSE ---
Patient transferred to Med Surg per Dr Cole order. Patient in need of IV antibiotics. Report given to SHANELL Quarles. Belongings still locked in NPU safe.
[2023-07-29] MEDS: vancomycin 1,500 MG/300 ML PIGGYBACK 200 MG IV (23:12)
[2023-07-29] MEDS: hyDROXYzine 25 mg Capsule 50 MG PO (23:19)
[2023-07-30] VITALS (8 sets, daily range): BP systolic 115–146; BP diastolic 65–81; PULSE 95–119; RESP 16–18; TEMP 36.7–37.3; O2SAT 94–97
[2023-07-30 00:14] LABS: Thyroid Stimulating Hormone 2.01 uIU/mL (0.27-4.20)
[2023-07-30] MEDS: piperacillin-tazobactam 3.375 GM in sodium chloride 0.9% (plus) 50 ML IV ×3 (00:46→17:51)
[2023-07-30] MEDS: ondansetron 4 MG Tablet PO (00:46)
[2023-07-30] MEDS: oxyCODONE 5 mg IR Tab/Cap PO ×3 (03:43→20:33)
[2023-07-30 04:08] LABS: Basophils % 0.3 %; Eosinophils # 0.3 10^3/uL (0.0-0.8); Eosinophils % 2.6 %; Hematocrit 38.5 % (37-53); Lymphocytes # 0.4 10^3/uL (0.8-4.8); Lymphocytes % 3.1 %; Mean Corpuscular HGB Conc 31.4 g/dL (30-55); Mean Corpuscular Hemoglobin 26.6 pg (27-33); Mean Corpuscular Volume 84.6 fl (82-101); Mean Platelet Volume 9.2 fL (7.4-10.4); Monocytes # 0.6 10^3/uL (0.2-0.9); Monocytes % 4.9 %; Neutrophils % 88.7 %; Nucleated Red Blood Cells % 0 %; Platelet Count 482 10^3/cmm (157-399); Red Blood Count 4.55 10^6/uL (3.85-5.65); Red Cell Distribution Width 14.6 % (12.1-15.1); White Blood Count 11.94 10^3/uL (3.29-11.43)
[2023-07-30 04:27] LABS: Estmated Average Glucose 108; Hemoglobin A1C 5.4 % (4.0-6.0)
[2023-07-30 04:31] LABS: Alanine Aminotransferase 12 U/L (0-41); Albumin Level 3.6 g/dL (3.5-5.2); Alkaline Phosphatase 130 U/L (40-130); Anion Gap 15.8 (5-19); Aspartate Amino Transferase 9 U/L (0-40); Blood Urea Nitrogen 13 mg/dL (6-20); Calcium 9.4 mg/dL (8.5-10.5); Carbon Dioxide 25 mmol/L (22-29); Chloride 100 mmol/L (98-107); Creatinine Clr Calc Pharmacy 114.7524; Globulin 3.9 g/dL (1.3-4.6); Glomerular Filtration Rate 91.3 mL/min (90-130); Glucose 122 mg/dL (65-115); Osmolality Calculated 283 mOsm/kg (285-295); Potassium 4.8 mmol/L (3.5-5.1); Sodium 136 mmol/L (136-145); Total Bilirubin 0.3 mg/dL (0.15-1.2); Total Protein 7.5 g/dL (6.6-8.7)
[2023-07-30 04:35] LABS: Chol HDL Ratio 2.79 mg/dL (1.0-5.00); Cholesterol 117 mg/dL (0-200); HDL Cholesterol 42 mg/dL (60-100); LDL Cholesterol Calculated 61 mg/dL (50-129); Triglycerides 72 mg/dL (0-150); VLDL Cholestrol Calculation 14 mg/dL (0-30)
[2023-07-30 04:43] LABS: Folate Level < 20.0 ng/mL (4.5-32.2)
--- NOTE | 2023-07-30 07:11 | PC.NURSE ---
all belongings taken to med surg by Wendi Ravi RN, crutches, walker, valuables envelope
[2023-07-30] MEDS: vancomycin 1,500 MG/300 ML PIGGYBACK 200 MG IV ×3 (08:40→23:51)
[2023-07-30] MEDS: gabapentin 300 mg Capsule PO ×3 (08:45→20:33)
[2023-07-30] MEDS: ARIPiprazole 10 mg Tablet 20 MG PO (08:45)
[2023-07-30] MEDS: neomycin-poly-bacitracin oint 28 gm 1 APPLIC TOPICAL ×2 (08:46→20:37)
[2023-07-30] MEDS: ibuprofen 800 mg tablet PO ×2 (08:51→17:23)
--- NOTE | 2023-07-30 11:00 | P.CONIM_ITS ---
Providers/Reason For Consult Consulting Physician/Specialty*: Dr. Stephane Mccoy, Son.P.M./podiatry Reason for Consult*: Left ankle abscess/osteomyelitis/gas gangrene Attending Physician: Judd León MD Primary Care Provider: Marielle Grant NP History of Present Illness History of Present Illness Rigo Srivastava is a 43 year old male who was admitted to the Neuropsych Unit on 07/22/2023 for a manic episode. Patient has history of schizoaffective disorder as well as bipolar disorder. Patient also has a history of polysubstance abuse. In discussing with the patient it was determined that he had a fall from a height approximately 6 stories earlier this year 2022. The fall resulted in open pilon fracture which was managed in [facility]. This was a multistage approach begin with external fixator. Patient has had multiple surgeries to the left lower extremity including local wound care and Integra bilayer application. During the course of the patient's current hospital admission he has been treated for lumbar spine wound with local wound care. During admission status the patient's left ankle declined. Patient has become diaphoretic and states that he feels more clammy. On exam at bedside his pillowcase saturated. Podiatry was initially consulted on 07/24/2023. At that time there were no signs of infection in the left ankle which showing signs of routine healing. Patient was given strict instructions to remain nonweightbearing to the left ankle at that time. Request for records from [facility] was sent to determine the intraoperative details of the patient's left lower extremity up to this point. Nursing staff were instructed to perform daily d ressing changes using Hydrofera Blue. Yesterday 07/29/2023 during the routine dressing change there was noted to be a new wound and purulence coming from the lateral aspect of the left ankle. A CT scan of the left lower leg was ordered to evaluate for abscess. There was found to be subcutaneous emphysema, intraosseous in the distal tibia and surrounding the TTC nail. I was consulted to evaluate and provide further recommendations for treatment given the status of the new wound and findings of emphysematous osteomyelitis. Review of Systems 2 General: Reports: 10 or more systems reviewed and unremarkable except in HPI and below Const: Denies: fever(s), chills, body aches or change in appetite Eyes: Denies: change in vision or blurry vision Card: Denies: chest pain, palpitations or irregular heart rhythm Resp: Denies: dyspnea GI: Denies: abdominal pain, nausea, vomiting or diarrhea Musc: Reports: joint stiffness Skin/Breast: Reports: non-healing lesions and lesions Neuro: Reports: numbness in extremities Medications/Allergies Home Medications Medication Instructions Recorded Confirmed Last Taken Type No Known Home Medications 07/22/23 07/22/23 Unknown History Allergies Allergy/AdvReac Type Severity Reaction Status Date / Time diphenhydramine Allergy Unknown Verified 07/22/23 22:53 [From Benadryl] guaifenesin [From Robitussin] Allergy ALGY-Hives Verified 07/22/23 22:53 Current Medications Generic Name Dose Route Start Last Admin Trade Name Freq PRN Reason Stop Dose Admin Aripiprazole 20 mg 07/28/23 09:00 07/30/23 08:45 Aripiprazole 10 Mg Tablet PO 20 mg DAILY LUCERO Administration Calcium Carbonate 1,000 mg 07/24/23 02:53 07/24/23 03:08 Calcium Carbonate 500 Mg Chew Tablet PO 1,000 mg Q4H PRN Administration HEARTBURN Cyclobenzaprine HCl 5 mg 07/24/23 19:34 07/25/23 17:58 Cyclobenzaprine 10 Mg Tablet PO 5 mg TID PRN Administration MUSCLE SPASMS Docusate Sodium 100 mg 07/23/23 16:28 07/23/23 16:37 Docusate Sodium 100 Mg Capsule PO 100 mg DAILY PRN Administration CONSTIPATION Gabapentin 300 mg 07/24/23 21:00 07/30/23 08:45 Gabapentin 300 Mg Capsule PO 300 mg TID LUCERO Administration Haloperidol 5 mg 07/22/23 18:03 07/28/23 20:04 Haloperidol 5 Mg Tablet PO 5 mg Q4H PRN Administration AGITATION Hydroxyzine Pamoate 50 mg 07/22/23 18:03 07/29/23 23:19 Hydroxyzine 25 Mg Capsule PO 50 mg Q6H PRN Administration ANXIETY Piperacillin Sod/Tazobactam 50 mls @ 12.5 mls/hr 07/29/23 23:15 07/30/23 10:42 Sod 3.375 gm/ Sodium Chloride IV 12.5 mls/hr Q8H LUCERO Administration Vancomycin/PEG/NADA/Lysine/Water 1,500 mg in 300 mls @ 200 mls/hr 07/30/23 00:00 07/30/23 10:36 Vancocin IV Infused Q8H LUCERO Infusion Ibuprofen 800 mg 07/22/23 19:56 07/30/23 08:51 Ibuprofen 800 Mg Tablet PO 800 mg Q8H PRN Administration ANKLE PAIN Lorazepam 2 mg 07/23/23 16:28 07/23/23 16:37 Lorazepam 2 Mg Tablet PO 2 mg Q4H PRN Administration ANXIETY Magnesium Hydroxide 30 ml 07/27/23 19:44 07/27/23 20:02 Magnesium Hydroxide 30 Ml Udc PO 30 ml DAILY PRN Administration CONSTIPATION Neomycin/Polymyxin/Bacitracin 1 applic 07/26/23 21:00 07/30/23 08:46 Stmstwbc-Tjfl-Efuqwlwcep Oint 28 Gm TOPICAL 1 applic 0900,2100 LUCERO Administration Olanzapine 5 mg 07/22/23 18:03 07/28/23 20:04 Olanzapine 5 Mg Odt PO 5 mg Q4H PRN Administration Agitation/Psychosis Ondansetron HCl 4 mg 07/22/23 18:03 07/30/23 00:46 Ondansetron 4 Mg Tablet PO 4 mg Q6H PRN Administration NAUSEA AND VOMITING Oxycodone HCl 5 mg 07/30/23 03:37 07/30/23 03:43 Oxycodone 5 Mg Ir Tab/Cap PO 5 mg Q6H PRN Administration MODERATE PAIN Trazodone HCl 100 mg 07/26/23 16:40 07/29/23 21:34 Trazodone 100 Mg Tablet PO 100 mg BEDTIME PRN Administration SLEEP Ziprasidone 40 mg 07/22/23 23:00 07/28/23 00:15 Ziprasidone Hcl 40 Mg Capsule PO 40 mg 0700,1700 PRN Administration AGITATION PFSH Acute PFSH: Medical History (Updated 07/30/23 @ 11:23 by Stephane Mccoy DPM) Dehiscence of operative wound Fracture of sternum History of joanna Liver laceration Schizoaffective disorder, bipolar type Social History (Updated 07/29/23 @ 22:45 by Raheel Cole MD) Smoking and tobacco status: former smoker Substance/Drug Use: unknown Caregiver/support person: No Housing: Homeless Vitals/I&O/Wt Last Vital Signs Temp 98.2 F 07/30/23 07:14 Pulse 119 H 07/30/23 07:14 Resp 16 07/30/23 07:14 BP 119/70 07/30/23 07:14 Pulse Ox 96 07/30/23 07:14 O2 Del Method Room Air 07/30/23 07:14 07/29/23 07/30/23 07/30/23 22:59 06:59 14:59 Intake Total 349.167 / 349.167 660 / 660 Output Total 400 / 400 400 / 400 Balance -50.833 / -50.833 260 / 260 Physical Exam Narrative: BELOW IS A FOCUSED LOWER EXTREMITY EXAM GENERAL: A&O x 3; diaphoretic at bedside with saturated pillowcase. VASCULAR: DP/PT pulses palpable 2/4 with CFT intact, <3seconds to distal digits DERMATOLOGICAL: Grade 2 ulceration with 100% granular base to medial aspect of left ankle measuring 6.8 x 6.4 cm. No deep structures exposed. No purulence. Erythema extending proximally. Lateral ankle shows 1.0 x 1.0 cm with active purulent drainage and surrounding erythema and warmth. Erythema extends approximately 8 cm circumferentially with the wound being the epicenter of the erythema. Plantar left heel incision is healed with no dehiscence or active drainage. MUSCULOSKELETAL: Status post left ankle TTC nail which shows no range of motion of the left ankle or subtalar joint. Tenderness with palpation of left anterior ankle joint and especially with lateral ankle joint. No soft tissue crepitus with palpation of the adjacent soft tissue of the lateral ankle wound. NEUROLOGICAL: Neurological sensation to the affected foot and ankle is present through L4-S1 dermatomes with no hyper/hypoesthesias, negative Tinel or Corrine leix's sign IMAGING: CT scan of left lower extremity personally interpreted by me which shows TTC nail with diffuse distal tibia intraosseous emphysema visualized in posterior malleolus and throughout the distal tibia at the level of the plafond. Larger areas of gas accumulation surrounding the TTC nail 3.7 cm proximal to the plafond. 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 Lengthy discussion was had with patient at bedside concerning extent of infection. Patient was agreeable to the plan moving forward with below the knee amputation. I spoke with hospitalist regarding the case and podiatry recommendations moving forward. Hospitalist will consult surgeon to perform below the knee amputation. -Continue nonweightbearing to operative extremity -Continue daily dressing changes with Hydrofera Blue -Continue IV antibiotic therapy -No podiatric intervention during this hospitalization. Will defer to surgical team that we will be performing below the knee amputation -Podiatry will sign off please reconsult if needed. Coding Level of Care Code Acute Code for [facility] Diagnoses Osteomyelitis of ankle, left, acute M86.172 Pain in left ankle M25.572 Cellulitis L03.90
--- NOTE | 2023-07-30 11:08 | PC.NURSE ---
Patient gave this nurse verbal consent to speak with his mother Shannon Fernandez. This nurse had patient sign a PHI form, PHI form in paper chart. Shannon Fernandez
--- NOTE | 2023-07-30 12:41 | P.NPUPN_ITS ---
Subjective NPU Subjective: Patient presented today reporting that he is feeling okay. He was fairly calm and cogent during the conversation. We discussed the medical evaluation of his foot and the recommendation for below-knee amputation. He reports that he has not had functionality and that lower leg are really been able to walk for some time and reports that he feels this is for the best. He was able to discuss the risks benefits and alternatives of this procedure and his belief that doing this is in his best interest. We discussed the psychiatry department continuing to follow him throughout this process and determining whether or not he needs to return to the inpatient unit based on the medical recommendations of the surgeon and postsurgical recovery team. Mental Status Exam MSE Comments: This is an overweight white male in hospital scrubs with limited grooming but adequate eye contact. Black immobilization boot on his left foot which is elevated. No abnormal movements except for significant psychomotor agitation. Somewhat cooperative with exam in mild to moderate distress. Speech was more normal rate and volume. Mood okay and affect less energetic. Thought process linear and more organized with no notable tangentiality or stream of consciousness. Thought content: Patient denied suicidal or homicidal ideation, there were no delusions reported or noted, he denied auditory or visual kiah lucinations. Attention and concentration were limited and memory appeared intermittently reliable but none were formally tested. He is alert and oriented times person and place. Insight, judgment and impulse control impaired. Vitals/I&O/Wt Last Vital Signs Temp 98.4 F 07/30/23 12:00 Pulse 95 07/30/23 12:00 Resp 16 07/30/23 12:00 BP 115/71 07/30/23 12:00 Pulse Ox 97 07/30/23 12:00 O2 Del Method Room Air 07/30/23 12:00 Data NPU 07/31/23 04:43 07/31/23 04:43 Micro: Microbiology 07/29/23 18:45 Wound Culture - Preliminary Ankle - #1 Coag positive Staphylococcus 07/29/23 19:00 Blood Culture - Preliminary Blood NEGATIVE TO DATE 07/29/23 18:53 Blood Culture - Preliminary Blood NEGATIVE TO DATE Microbiology 07/29/23 18:45 Ankle - #1 Wound Culture - Preliminary Coag positive Staphylococcus 07/29/23 19:00 Blood Blood Culture - Preliminary NEGATIVE TO DATE 07/29/23 18:53 Blood Blood Culture - Preliminary NEGATIVE TO DATE A&P Assessment and plan (1) Mariaa: (2) History of mariaa: (3) Schizoaffective disorder, bipolar type: (4) Postoperative external wound disruption: Plan This is a 43 -year-old, white male, with history of multiple hospitalizations and outpatient services and multiple medication trials with 1 inpatient stay here and some distant outpatient services here who presents with history of addiction with unclear current use and past mental health challenges with clear mariaa on presentation here with history of mariaa. 1. Started Abilify 5 mg p.o. daily and increased to 10 mg with ultimate plan for long-acting injectable. Increased to 15 mg p.o. daily. Increased to 20 mg p.o. daily. Consider additional increase in the next few days. 2. Encourage individual, group, and milieu therapy. 3. Continue one-to-one checks for safety given his wraps for his lower leg/foot injury as well as boot. 4. Patient on 96-hour hold due to psychosis and impairment of impulse control. Submitted 21-day hold paperwork. 5. Consulted with dr Rolon fro management of left foot. Appreciate involvement and will follow recommendations as indicated. 6. Consult PT/OT about usage of crutches as he is nonweightbearing clearly does not understand mechanics of doing that with crutches. 7. Notable purulence in his affected joint/left ankle/foot. We will get a hospitalist consult and follow recommendations as indicated. Appreciate consult patient being transferred for definitive medical care. Involuntary Hold Information 96 Hour Hold: 96 Hour Involuntary Admission: No Attestations NPU Medical Necessity Statement*: Inpatient hospitalization is medically necessary and the clinically appropriate intervention, at this time. We will monitor medications and make changes as indicated. Likely length of stay is 7-10 days. Coding Level of Care Code Acute Code for g Fwd Diagnoses Mariaa F30.9 History of mariaa Z86.59 Schizoaffective disorder, bipolar type F25.0 Postoperative external wound disruption T81.31XA
--- NOTE | 2023-07-30 16:06 | PM.PN ---
Subjective Subjective: - Patient was examined this morning, he is alert to person, to place, to time, we had extensive discussion about his lower extremity CT, CT of left foot discussed that CT shows that there is gas in the distal tibia, concerns for deep tissue infection, there is a high risk that he is good to lose his lower extremity, will consult podiatry, he voiced understanding, all questions answered -He tells me that there was no blood flow issues when he was at [place], he has no sensation in his foot this is since his fall, he is not able to his move his left foot since his fall -Nurses in [place] have been reporting that patient does not abide by nonweightbearing status -He also has an incision for a burst fracture of his back, there is no active drainage no back pain, examined, looks clean and dry -Spoke to Dr. Mccoy, Dr. Mccoy reviewed the case, spoke to the patient, he recommended a below-knee amputation -Spoke to Dr. Campos, about the case, agreeable to see the patient, and proceed with left below-knee amputation Vitals/I&O/Wt Last Vital Signs Temp 98.4 F 07/30/23 12:00 Pulse 95 07/30/23 12:00 Resp 17 07/30/23 14:20 BP 115/71 07/30/23 12:00 Pulse Ox 97 07/30/23 12:00 O2 Del Method Room Air 07/30/23 12:00 07/30/23 07/30/23 07/30/23 06:59 14:59 22:59 Intake Total 349.167 / 349.167 710 / 710 Output Total 400 / 400 400 / 400 Balance -50.833 / -50.833 310 / 310 Physical Exam Const: COMMON NORMALS: no acute distress and patient oriented x3 Resp: COMMON NORMALS: normal respiratory effort, No retractions, No use of accessory muscles and clear to auscultation bilaterally AUSCULTATION: clear to auscultation bilaterally Cardio: COMMON NORMALS: regular rate, regular rhythm, S1 normal heart sound present and S2 normal heart sound present RATE: regular rate RHYTHM: regular rhythm HEART SOUNDS: S1 normal heart sound present and S2 normal heart sound present GI: COMMON NORMALS: Normal to inspection, nondistended, normoactive bowel sounds present and non-tender Extremity: NARRATIVE EXTREMITY EXAM: Left foot wrapped in bandage Neuro: COMMON NORMALS: patient oriented x3 Psych: COMMON NORMALS: mental status grossly normal Data 07/30/23 03:55 07/30/23 03:55 Micro: Microbiology 07/29/23 19:00 Blood Culture - Preliminary Blood SPECIMEN COLLECTED 07/29/23 18:53 Blood Culture - Preliminary Blood SPECIMEN COLLECTED A&P Assessment and plan (1) Osteomyelitis of ankle, left, acute: (2) Non-pressure chronic ulcer of left ankle with fat layer exposed: (3) Fracture of distal end of left fibula: Qualifiers: Encounter type: sequela Fracture type: open Fracture morphology: other fracture (4) Schizoaffective disorder, bipolar type: (5) History of joanna: Plan 43-year-old gentleman admitted to Neuropsych Unit with history of joanna and schizophrenia with recent history of multiple traumatic fractures requiring multiple or including complicated open fracture of left ankle requiring external fixator hardware which was internalized at an [facility] admitted to Neuropsych Unit for joanna being followed by podiatry having concerns for purulence drainage from the wound found to have CT changes concerning for osteomyelitis. Osteomyelitis/deep tissue infection: Appreciate CT ankle results with concerns for mottling of the ankle and tarsal bones and gas at distal tibial end. Patient has mild leukocytosis, elevated ESR and CRP with multiple spikes of low-grade fever since admission. Continue vancomycin, Zosyn Consulted podiatry Consulted Dr. Campos, for below-knee amputation Follow blood cultures, MRSA swab, wound culture. Nonweightbearing as per podiatry team. Wound care as per podiatry team with Hydrofera Blue. PT/OT. Spinal wound healing well without concerns for localized infection. Dressings with ABDs and triple antibiotic daily. Schizophrenia/joanna: Treatment as per psychiatric team. Full code Regular diet Lovenox for DVT prophylaxis Famotidine for PUD prophylaxis - Patient was examined this morning, he is alert to person, to place, to time, we had extensive discussion about his lower extremity CT, CT of left foot discussed that CT shows that there is gas in the distal tibia, concerns for deep tissue infection, there is a high risk that he is good to lose his lower extremity, will consult podiatry, he voiced understanding, all questions answered -He tells me that there was no blood flow issues when he was at [place], he has no sensation in his foot this is since his fall, he is not able to his move his left foot since his fall -Nurses in [place] have been reporting that patient does not abide by nonweightbearing status -He also has an incision for a burst fracture of his back, there is no active drainage no back pain, examined, looks clean and dry -Spoke to Dr. Mccoy, Dr. Mccoy reviewed the case, spoke to the patient, he recommended a below-knee amputation -Spoke to Dr. Campos, about the case, agreeable to see the patient, and proceed with left below-knee amputation Attestations Medical Necessity Statement*: Patient requires hospitalization for below-knee amputation, for left ankle foot deep tissue infection, osteomyelitis, gas Diagnoses Osteomyelitis of ankle, left, acute M86.172 Non-pressure chronic ulcer of left ankle with fat layer exposed L97.322 Fracture of distal end of left fibula S82.832A Encounter type: sequela Fracture type: open Fracture morphology: other fracture Schizoaffective disorder, bipolar type F25.0 History of joanna Z86.59
[2023-07-30] MEDS: acetaminophen 325 mg Tablet 650 MG PO ×2 (17:23→22:47)
[2023-07-30] MEDS: cyclobenzaprine 10 mg Tablet 5 MG PO (19:33)
[2023-07-30] MEDS: hyDROXYzine 25 mg Capsule 50 MG PO (19:33)
[2023-07-30 23:30] LABS: Vancomycin Trough 17.6 ug/mL (10-15)
[2023-07-31] VITALS (24 sets, daily range): BP systolic 113–195; BP diastolic 74–127; PULSE 84–115; RESP 10–27; TEMP 36.4–37.2; O2SAT 92–99
[2023-07-31] MEDS: piperacillin-tazobactam 3.375 GM in sodium chloride 0.9% (plus) 50 ML IV ×3 (02:04→19:31)
[2023-07-31 05:28] LABS: Basophils # 0.1 10^3/uL (0.0-0.1); Basophils % 0.7 %; Eosinophils # 0.4 10^3/uL (0.0-0.8); Eosinophils % 5.7 %; Hematocrit 38.2 % (37-53); Lymphocytes % 12.7 %; Mean Corpuscular HGB Conc 31.2 g/dL (30-55); Mean Corpuscular Hemoglobin 26.6 pg (27-33); Mean Corpuscular Volume 85.3 fl (82-101); Mean Platelet Volume 9.3 fL (7.4-10.4); Monocytes # 0.5 10^3/uL (0.2-0.9); Neutrophils # 5.53 10^3/uL (1.8-7.7); Neutrophils % 73.5 %; Nucleated Red Blood Cells % 0 %; Platelet Count 452 10^3/cmm (157-399); Red Blood Count 4.48 10^6/uL (3.85-5.65); Red Cell Distribution Width 14.7 % (12.1-15.1); White Blood Count 7.53 10^3/uL (3.29-11.43)
[2023-07-31 05:50] LABS: Alanine Aminotransferase 9 U/L (0-41); Albumin Level 3.2 g/dL (3.5-5.2); Alkaline Phosphatase 110 U/L (40-130); Anion Gap 12.2 (5-19); Aspartate Amino Transferase 7 U/L (0-40); Blood Urea Nitrogen 14 mg/dL (6-20); C Reactive Protein 107.2 mg/L (0.0-4.9); Calcium 9.2 mg/dL (8.5-10.5); Carbon Dioxide 27 mmol/L (22-29); Chloride 102 mmol/L (98-107); Globulin 3.6 g/dL (1.3-4.6); Glucose 88 mg/dL (65-115); Osmolality Calculated 284 mOsm/kg (285-295); Phosphorus 3.8 mg/dL (2.5-4.5); Potassium 4.2 mmol/L (3.5-5.1); Sodium 137 mmol/L (136-145); Total Bilirubin 0.2 mg/dL (0.15-1.2); Total Protein 6.8 g/dL (6.6-8.7)
[2023-07-31] MEDS: oxyCODONE 5 mg IR Tab/Cap PO ×2 (06:42→19:10)
[2023-07-31] MEDS: gabapentin 300 mg Capsule PO ×2 (08:04→20:13)
[2023-07-31] MEDS: ARIPiprazole 10 mg Tablet 20 MG PO (08:04)
[2023-07-31] MEDS: vancomycin 1,500 MG/300 ML PIGGYBACK 200 MG IV ×2 (08:09→17:44)
[2023-07-31] MEDS: neomycin-poly-bacitracin oint 28 gm 1 APPLIC TOPICAL (10:11)
--- NOTE | 2023-07-31 11:32 | P.CONIM_ITS ---
Providers/Reason For Consult Consulting Physician/Specialty*: hospitalist Reason for Consult*: infected ankle Attending Physician: Judd León MD Primary Care Provider: Marielle Grant NP History of Present Illness History of Present Illness Rigo Srivastava is a 43 year old male History of polysubstance abuse.? Patient is a poor historian he states that he has a history of left ankle trauma that he sustained from a fall earlier this year.? He members being in an external fixator for a long period of time and several surgeries.? He is unable to recall what surgeries were done, where they were done or when they were done exactly.? Awaiting records from facility where his procedures were performed. I was consulted for BKA left Review of Systems General: Reports: 10 or more systems reviewed and unremarkable except in HPI and below Const: Denies: fever(s), chills, body aches or change in appetite Eyes: Denies: change in vision or blurry vision Card: Denies: chest pain, palpitations or irregular heart rhythm Resp: Denies: dyspnea GI: Denies: abdominal pain, nausea, vomiting or diarrhea Musc: Reports: joint stiffness Skin/Breast: Reports: non-healing lesions and lesions Neuro: Reports: numbness in extremities Medications/Allergies Home Medications Medication Instructions Recorded Confirmed Last Taken Type No Known Home Medications 07/22/23 07/22/23 Unknown History Allergies Allergy/AdvReac Type Severity Reaction Status Date / Time diphenhydramine Allergy Unknown Verified 07/22/23 22:53 [From Benadryl] guaifenesin [From Robitussin] Allergy ALGY-Hives Verified 07/22/23 22:53 Current Medications Generic Name Dose Route Start Last Admin Trade Name Freq PRN Reason Stop Dose Admin Acetaminophen 650 mg 07/22/23 18:03 07/30/23 22:47 Acetaminophen 325 Mg Tablet PO 650 mg Q4H PRN Administration MILD PAIN Aripiprazole 20 mg 07/28/23 09:00 07/31/23 08:04 Aripiprazole 10 Mg Tablet PO 20 mg DAILY LUCERO Administration Calcium Carbonate 1,000 mg 07/24/23 02:53 07/24/23 03:08 Calcium Carbonate 500 Mg Chew Tablet PO 1,000 mg Q4H PRN Administration HEARTBURN Cyclobenzaprine HCl 5 mg 07/24/23 19:34 07/30/23 19:33 Cyclobenzaprine 10 Mg Tablet PO 5 mg TID PRN Administration MUSCLE SPASMS Docusate Sodium 100 mg 07/23/23 16:28 07/23/23 16:37 Docusate Sodium 100 Mg Capsule PO 100 mg DAILY PRN Administration CONSTIPATION Gabapentin 300 mg 07/24/23 21:00 07/31/23 08:04 Gabapentin 300 Mg Capsule PO 300 mg TID LUCERO Administration Haloperidol 5 mg 07/22/23 18:03 07/28/23 20:04 Haloperidol 5 Mg Tablet PO 5 mg Q4H PRN Administration AGITATION Hydroxyzine Pamoate 50 mg 07/22/23 18:03 07/30/23 19:33 Hydroxyzine 25 Mg Capsule PO 50 mg Q6H PRN Administration ANXIETY Piperacillin Sod/Tazobactam 50 mls @ 12.5 mls/hr 07/29/23 23:15 07/31/23 09:51 Sod 3.375 gm/ Sodium Chloride IV 12.5 mls/hr Q8H LUCERO Administration Vancomycin/PEG/NADA/Lysine/Water 1,500 mg in 300 mls @ 200 mls/hr 07/30/23 00:00 07/31/23 09:46 Vancocin IV Infused Q8H LUCERO Infusion Ibuprofen 800 mg 07/22/23 19:56 07/30/23 17:23 Ibuprofen 800 Mg Tablet PO 800 mg Q8H PRN Administration ANKLE PAIN Lorazepam 2 mg 07/23/23 16:28 07/23/23 16:37 Lorazepam 2 Mg Tablet PO 2 mg Q4H PRN Administration ANXIETY Magnesium Hydroxide 30 ml 07/27/23 19:44 07/27/23 20:02 Magnesium Hydroxide 30 Ml Udc PO 30 ml DAILY PRN Administration CONSTIPATION Neomycin/Polymyxin/Bacitracin 1 applic 07/26/23 21:00 07/31/23 10:11 Efxwwpsg-Ctsw-Ratqolcrwr Oint 28 Gm TOPICAL 1 applic 0900,2100 LUCERO Administration Olanzapine 5 mg 07/22/23 18:03 07/28/23 20:04 Olanzapine 5 Mg Odt PO 5 mg Q4H PRN Administration Agitation/Psychosis Ondansetron HCl 4 mg 07/22/23 18:03 07/30/23 00:46 Ondansetron 4 Mg Tablet PO 4 mg Q6H PRN Administration NAUSEA AND VOMITING Oxycodone HCl 5 mg 07/30/23 03:37 07/31/23 06:42 Oxycodone 5 Mg Ir Tab/Cap PO 5 mg Q6H PRN Administration MODERATE PAIN Trazodone HCl 100 mg 07/26/23 16:40 07/29/23 21:34 Trazodone 100 Mg Tablet PO 100 mg BEDTIME PRN Administration SLEEP Ziprasidone 40 mg 07/22/23 23:00 07/28/23 00:15 Ziprasidone Hcl 40 Mg Capsule PO 40 mg 0700,1700 PRN Administration AGITATION PFSH Acute PFSH: Medical History (Updated 07/30/23 @ 11:23 by Stephane Mccoy DPM) Dehiscence of operative wound Fracture of sternum History of joanna Liver laceration Schizoaffective disorder, bipolar type Social History (Updated 07/29/23 @ 22:45 by Raheel Cole MD) Smoking and tobacco status: former smoker Substance/Drug Use: unknown Caregiver/support person: No Housing: Homeless Vitals/I&O/Wt Last Vital Signs Temp 97.6 F 07/31/23 11:08 Pulse 84 07/31/23 11:08 Resp 16 07/31/23 11:08 BP 123/77 07/31/23 11:08 Pulse Ox 98 07/31/23 11:08 O2 Del Method Room Air 07/31/23 11:08 07/30/23 07/31/23 07/31/23 22:59 06:59 14:59 Intake Total 830 / 1540 350 / 1890 300 / 300 Output Total 1200 / 1600 400 / 400 Balance -370 / -60 350 / 290 -100 / -100 Physical Exam Narrative: Infected left foot wrapped in Abbe wrap. Data 07/31/23 04:43 07/31/23 04:43 Micro: Microbiology 07/29/23 18:45 Wound Culture - Preliminary Ankle - #1 Coag positive Staphylococcus 07/29/23 19:00 Blood Culture - Preliminary Blood NEGATIVE TO DATE 07/29/23 18:53 Blood Culture - Preliminary Blood NEGATIVE TO DATE A&P Assessment and plan (1) Osteomyelitis of ankle, left, acute: Plan to do below the knee amputation today. Consult Attestations Medical Necessity Statement: Per primary service Coding Level of Care Code Acute Code for [facility] Fwd Diagnoses Osteomyelitis of ankle, left, acute M86.172
--- NOTE | 2023-07-31 13:18 | P.PN_ITS ---
Subjective Subjective: Patient was seen this morning, he is alert oriented x3, following all commands, does complain of pain in his left foot, left ankle, we had extensive discussion about a below-knee amputation, he just wants his foot off, its been bothering him since he has been here in the hospital, its continued to throb, continue to hurt, he tells me he just wants to be done with it, he understands the signific ance of below-knee amputation, the PT OT, the rehab required, he voiced understanding, all questions answered, agreed to proceed Vitals/I&O/Wt Last Vital Signs Temp 97.6 F 07/31/23 11:08 Pulse 84 07/31/23 11:08 Resp 16 07/31/23 11:08 BP 123/77 07/31/23 11:08 Pulse Ox 98 07/31/23 11:08 O2 Del Method Room Air 07/31/23 11:08 07/30/23 07/31/23 07/31/23 22:59 06:59 14:59 Intake Total 830 / 1540 350 / 1890 300 / 300 Output Total 1200 / 1600 400 / 400 Balance -370 / -60 350 / 290 -100 / -100 Physical Exam Const: COMMON NORMALS: no acute distress and patient oriented x3 Resp: COMMON NORMALS: normal respiratory effort, No retractions, No use of accessory muscles and clear to auscultation bilaterally AUSCULTATION: clear to auscultation bilaterally Cardio: COMMON NORMALS: regular rate, regular rhythm, S1 normal heart sound present and S2 normal heart sound present RATE: regular rate RHYTHM: regular rhythm HEART SOUNDS: S1 normal heart sound present and S2 normal heart sound present GI: COMMON NORMALS: Normal to inspection, nondistended, normoactive bowel sounds present and non-tender Extremity: COMMON NORMALS: no pedal edema NARRATIVE EXTREMITY EXAM: Left foot, wrapped in bandage Neuro: COMMON NORMALS: patient oriented x3 Psych: COMMON NORMALS: mental status grossly normal Data 07/31/23 04:43 07/31/23 04:43 Micro: Microbiology 07/29/23 18:45 Wound Culture - Preliminary Ankle - #1 Coag positive Staphylococcus 07/29/23 19:00 Blood Culture - Preliminary Blood NEGATIVE TO DATE 07/29/23 18:53 Blood Culture - Preliminary Blood NEGATIVE TO DATE A&P Assessment and plan (1) Osteomyelitis of ankle, left, acute: (2) Non-pressure chronic ulcer of left ankle with fat layer exposed: (3) Fracture of distal end of left fibula: Qualifiers: Encounter type: sequela Fracture type: open Fracture morphology: other fracture (4) Schizoaffective disorder, bipolar type: (5) History of joanna: Plan 43-year-old gentleman admitted to Neuropsych Unit with history of joanna and schizophrenia with recent history of multiple traumatic fractures requiring multiple or including complicated open fracture of left ankle requiring external fixator hardware which was internalized at an [facility] admitted to Neuropsych Unit for joanna being followed by podiatry having concerns for purulence drainage from the wound found to have CT changes concerning for osteomyelitis. Osteomyelitis/deep tissue infection: Appreciate CT ankle results with concerns for mottling of the ankle and tarsal bones and gas at distal tibial end. Patient has mild leukocytosis, elevated ESR and CRP with multiple spikes of low- grade fever since admission. Continue vancomycin, Zosyn Consulted podiatry, recommended below-knee amputation Consulted Dr. Campos, for below-knee amputation, today, n.p.o. Follow blood cultures, MRSA swab, wound culture. Nonweightbearing as per podiatry team. Wound care as per podiatry team with Hydrofera Blue. PT/OT. Spinal wound healing well without concerns for localized infection. Dressings with ABDs and triple antibiotic daily. Schizophrenia/joanna: Treatment as per psychiatric team. Full code Regular diet Lovenox for DVT prophylaxis Famotidine for PUD prophylaxis Attestations Medical Necessity Statement*: Patient requires hospitalization for left ankle deep tissue infection osteomyelitis, requiring below-knee amputation Coding Level of Care Code Acute Code for [facility] Fwd Diagnoses Osteomyelitis of ankle, left, acute M86.172 Non-pressure chronic ulcer of left ankle with fat layer exposed L97.322 Fracture of distal end of left fibula S82.832A Encounter type: sequela Fracture type: open Fracture morphology: other fracture Schizoaffective disorder, bipolar type F25.0 History of joanna Z86.59
--- NOTE | 2023-07-31 13:34 | PC.SOCIAL ---
IMM Not Given. IMM not updated with pt. Pt is on a 21 day hold & is not expected to d/c in the next 24-48hrs.
--- NOTE | 2023-07-31 13:56 | P.NPUPN_ITS ---
Subjective NPU Subjective: Patient presented today reporting that he is doing as well as can be expected after the surgery. He reports that he is in significant pain and the nurse was at his bedside providing appropriate response to his pain concerns. He was very thankful for the support and assistance of the treatment team. We discussed different possible scenarios want to go on moving forward after the surgery from the standpoint of him being on the unit again versus going to [facility] or some sort of location before more active daily PT OT etc. He denied any side effects to the medication or any issues with the medication at this time. Mental Status Exam MSE Comments: This is an overweight white male in hospital scrubs with limited grooming but adequate eye contact. His left postsurgical below-knee amputation appeared well wrapped and elevated. No abnormal movements except for psychomotor retardation. More cooperative with exam in mild distress. Speech was more normal rate and volume. Mood okay and affect less energetic. Thought process linear and more organized with no notable tangentiality or stream of consciousness. Thought content: Patient denied suicidal or homicidal ideation, there were no delusions reported or noted, he denied auditory or visual hallucinations. Attention and concentration were limited and memory appeared intermittently reliable but none were formally tested. He is alert and oriented times person and place. Insight can judgment were improving and impulse control limited, but improving. Vitals/I&O/Wt Last Vital Signs Temp 97.6 F 07/31/23 11:08 Pulse 84 07/31/23 11:08 Resp 16 07/31/23 11:08 BP 123/77 07/31/23 11:08 Pulse Ox 98 07/31/23 11:08 O2 Del Method Room Air 07/31/23 11:08 07/30/23 07/31/23 07/31/23 22:59 06:59 14:59 Intake Total 830 / 1540 350 / 1890 350 / 350 Output Total 1200 / 1600 400 / 400 Balance -370 / -60 350 / 290 -50 / -50 Data NPU 07/31/23 04:43 07/31/23 04:43 Micro: Microbiology 07/29/23 18:45 Wound Culture - Preliminary Ankle - #1 Coag positive Staphylococcus 07/29/23 19:00 Blood Culture - Preliminary Blood NEGATIVE TO DATE 07/29/23 18:53 Blood Culture - Preliminary Blood NEGATIVE TO DATE Microbiology 07/29/23 18:45 Ankle - #1 Wound Culture - Preliminary Coag positive Staphylococcus 07/29/23 19:00 Blood Blood Culture - Preliminary NEGATIVE TO DATE 07/29/23 18:53 Blood Blood Culture - Preliminary NEGATIVE TO DATE A&P Assessment and plan (1) Mariaa: (2) History of mariaa: (3) Schizoaffective disorder, bipolar type: (4) Postoperative external wound disruption: Plan This is a 43 -year-old, white male, with history of multiple hospitalizations and outpatient services and multiple medication trials with 1 inpatient stay here and some distant outpatient services here who presents with history of addiction with unclear current use and past mental health challenges with clear mariaa on presentation here with history of mariaa. 1. Started Abilify 5 mg p.o. daily and increased to 10 mg with ultimate plan for long-acting injectable. Increased to 15 mg p.o. daily. Increased to 20 mg p.o. daily. Consider additional increase in the next few days. 2. Encourage individual, group, and milieu therapy. 3. Continue one-to-one checks for safety given his wraps for his lower leg/foot injury as well as boot. 4. Patient on 96-hour hold due to psychosis and impairment of impulse control. Submitted 21-day hold paperwork. 5. Consulted with dr Rolon fro management of left foot. Appreciate involvement and will follow recommendations as indicated. 6. Consulted PT/OT about usage of crutches as he is nonweightbearing clearly does not understand mechanics of doing that with crutches. 7. Patient had surgery and returned from his left below-knee amputation. We will continue to follow and identify if there is a point where he would need to return to the neuropsychiatric unit versus him going to [facility] for some period of time after discharge. We will follow hospitalist consult including recommendations as indicated. Patient continues to be managed on the MedSurg unit after his surgery. Involuntary Hold Information 96 Hour Hold: 96 Hour Involuntary Admission: No Attestations NPU Medical Necessity Statement*: Inpatient hospitalization is medically necessary and the clinically appropriate intervention, at this time. We will monitor medications and make changes as indicated. Likely length of stay is 7-10 days. Coding Level of Care Code Acute Code for [facility] Fwd Diagnoses Mariaa F30.9 History of mariaa Z86.59 Schizoaffective disorder, bipolar type F25.0 Postoperative external wound disruption T81.31XA
[2023-07-31] MEDS: sodium chloride 0.9% 1,000 ML 30 ML IV (14:18)
--- NOTE | 2023-07-31 14:36 | P.ANESASSM_ITS ---
Pre-Anesthetic Assessment Height/Weight: Height 1.78 m Weight 86.183 kg Temp Pulse Resp BP Pulse Ox O2 Del Method 98.6 F 101 H 16 130/76 97 Room Air 07/31/23 14:02 07/31/23 14:02 07/31/23 14:02 07/31/23 14:02 07/31/23 14:02 07/31/23 14:02 Operation Date: 07/31/23 13:50 Proposed Procedures p Below Knee Amputation(Left) - Yoshi Campos, DO Was Beta Radha taken within 24 hours: N/A Was Clonidine taken within 24 hours: N/A Last intake: Intake Last Liquid Date 07/30/23 Last Liquid Time 22:00 Last Solid Date 07/30/23 Last Solid Time 17:00 Social Tobacco 1 pack(s) per day Exam alert, oriented x 3 and clear to auscultation bilaterally Airway Submandibular: within normal limits Cervical ROM: within normal limits Mallampati: Class II History/ROS No significant history except as noted Neuropsych Anxiety and Bipolar Schizophrenia Anesthetic Plan ASA status: 3 Anesthesia: General and Regional (specify below) (Adductor canal/femoral block; possible sciatic/popliteal block in addition) Risk of > 500 ml blood loss (7ml/kg in children): Yes, adequate IV access and f luids planned Medications/Allergies Home Medications Medication Instructions Recorded Confirmed Last Taken Type No Known Home Medications 07/22/23 07/22/23 Unknown History Allergies Allergy/AdvReac Type Severity Reaction Status Date / Time diphenhydramine Allergy Unknown Verified 07/22/23 22:53 [From Benadryl] guaifenesin [From Robitussin] Allergy ALGY-Hives Verified 07/22/23 22:53 Current Medications Generic Name Dose Route Start Last Admin Trade Name Freq PRN Reason Stop Dose Admin Acetaminophen 650 mg 07/22/23 18:03 07/30/23 22:47 Acetaminophen 325 Mg Tablet PO 650 mg Q4H PRN Administration MILD PAIN Aripiprazole 20 mg 07/28/23 09:00 07/31/23 08:04 Aripiprazole 10 Mg Tablet PO 20 mg DAILY LUCERO Administration Calcium Carbonate 1,000 mg 07/24/23 02:53 07/24/23 03:08 Calcium Carbonate 500 Mg Chew Tablet PO 1,000 mg Q4H PRN Administration HEARTBURN Cyclobenzaprine HCl 5 mg 07/24/23 19:34 07/30/23 19:33 Cyclobenzaprine 10 Mg Tablet PO 5 mg TID PRN Administration MUSCLE SPASMS Docusate Sodium 100 mg 07/23/23 16:28 07/23/23 16:37 Docusate Sodium 100 Mg Capsule PO 100 mg DAILY PRN Administration CONSTIPATION Gabapentin 300 mg 07/24/23 21:00 07/31/23 08:04 Gabapentin 300 Mg Capsule PO 300 mg TID LUCERO Administration Haloperidol 5 mg 07/22/23 18:03 07/28/23 20:04 Haloperidol 5 Mg Tablet PO 5 mg Q4H PRN Administration AGITATION Hydroxyzine Pamoate 50 mg 07/22/23 18:03 07/30/23 19:33 Hydroxyzine 25 Mg Capsule PO 50 mg Q6H PRN Administration ANXIETY Piperacillin Sod/Tazobactam 50 mls @ 12.5 mls/hr 07/29/23 23:15 07/31/23 13:54 Sod 3.375 gm/ Sodium Chloride IV Infused Q8H LUCERO Infusion Vancomycin/PEG/NADA/Lysine/Water 1,500 mg in 300 mls @ 200 mls/hr 07/30/23 00:00 07/31/23 09:46 Vancocin IV Infused Q8H LUCERO Infusion Sodium Chloride 1,000 mls @ 30 mls/hr 07/31/23 14:15 07/31/23 14:18 Sodium Chloride 0.9% IV 08/01/23 14:14 30 mls/hr .Q24H LUCERO Administration Ibuprofen 800 mg 07/22/23 19:56 07/30/23 17:23 Ibuprofen 800 Mg Tablet PO 800 mg Q8H PRN Administration ANKLE PAIN Lorazepam 2 mg 07/23/23 16:28 07/23/23 16:37 Lorazepam 2 Mg Tablet PO 2 mg Q4H PRN Administration ANXIETY Magnesium Hydroxide 30 ml 07/27/23 19:44 07/27/23 20:02 Magnesium Hydroxide 30 Ml Udc PO 30 ml DAILY PRN Administration CONSTIPATION Neomycin/Polymyxin/Bacitracin 1 applic 07/26/23 21:00 07/31/23 10:11 Ownztrxo-Yjid-Mgovcswyhi Oint 28 Gm TOPICAL 1 applic 0900,2100 LUCERO Administration Olanzapine 5 mg 07/22/23 18:03 07/28/23 20:04 Olanzapine 5 Mg Odt PO 5 mg Q4H PRN Administration Agitation/Psychosis Ondansetron HCl 4 mg 07/22/23 18:03 07/30/23 00:46 Ondansetron 4 Mg Tablet PO 4 mg Q6H PRN Administration NAUSEA AND VOMITING Oxycodone HCl 5 mg 07/30/23 03:37 07/31/23 06:42 Oxycodone 5 Mg Ir Tab/Cap PO 5 mg Q6H PRN Administration MODERATE PAIN Trazodone HCl 100 mg 07/26/23 16:40 07/29/23 21:34 Trazodone 100 Mg Tablet PO 100 mg BEDTIME PRN Administration SLEEP Ziprasidone 40 mg 07/22/23 23:00 07/28/23 00:15 Ziprasidone Hcl 40 Mg Capsule PO 40 mg 0700,1700 PRN Administration AGITATION PFSH Anesthesia Medical History (Updated 07/30/23 @ 11:23 by Stephane Mccoy DPM) Dehiscence of operative wound Fracture of sternum History of joanna Liver laceration Schizoaffective disorder, bipolar type Social History (Updated 07/29/23 @ 22:45 by Raheel Cole MD) Smoking and tobacco status: former smoker Substance/Drug Use: unknown Caregiver/support person: No Housing: Homeless Data Anesthesia 07/31/23 04:43 07/31/23 04:43 Short CBC 07/29/23 07/30/23 07/31/23 Range/Units 18:53 03:55 04:43 WBC 12.32 H 11.94 H 7.53 (3.29-11.43) 10^3/uL Hgb 11.70 12.10 11.90 (11.27-16.99) g/dL Hct 36.6 L 38.5 38.2 (37-53) % MCV 84.7 84.6 85.3 (82-101) fl Plt Count 458 H 482 H 452 H (157-399) 10^3/cmm Neut % (Auto) 88.7 73.5 % Neut # (Auto) 10.60 H 5.53 (1.8-7.7) 10^3/uL BMP 07/29/23 07/30/23 07/31/23 18:53 03:55 04:43 Sodium 136 136 137 Potassium 4.1 4.8 4.2 Chloride 99 100 102 Carbon Dioxide 28 25 27 BUN 12 13 14 Creatinine 0.7 0.9 0.7 Glucose 112 122 H 88 Calcium 9.3 9.4 9.2 Liver Function 07/29/23 07/30/23 07/31/23 Range/Units 18:53 03:55 04:43 Total Bilirubin 0.2 0.3 0.2 (0.15-1.2) mg/dL AST 8 9 7 (0-40) U/L ALT 10 12 9 (0-41) U/L Alkaline Phosphatase 133 H 130 110 (40-130) U/L Albumin 3.6 3.6 3.2 L (3.5-5.2) g/dL Coags 07/29/23 07/29/23 07/31/23 18:53 18:53 04:43 ESR 46 H C-Reactive Protein 114.4 H 107.2 H Microbiology 07/29/23 18:45 Wound Culture - Preliminary Ankle - #1 Coag positive Staphylococcus 07/29/23 19:00 Blood Culture - Preliminary Blood NEGATIVE TO DATE 07/29/23 18:53 Blood Culture - Preliminary Blood NEGATIVE TO DATE Cardiac Studies: No Data to Display
[2023-07-31 16:05] LABS: Methicillin-Resist S.aureu PCR NOT DETECTED (NOT DETECTED)
[2023-07-31] MEDS: HYDROmorphone 1 mg/mL INJ 1 mL (16:15)
--- NOTE | 2023-07-31 16:23 | PM.OP ---
Operative Report Date of procedure: July 31, 2023 Pre-op diagnosis: Infected left ankle Post-op diagnosis: same Procedure done: Left below the knee amputation Surgeon: Yoshi Campos DO Estimated blood loss (mL): 10 Tourniquet time (min): 45 Procedure: Left below the knee amputation Patient brought to operative suite after undergoing anesthesia was placed in supine position. All areas of pressure well-padded. Patient had a tourniquet applied. Patient was then prepped and draped normal sterile fashion. Patient had skin incision made circumferentially around the leg. The tibia was exposed and cut. The fibula was exposed and cut. Posterior tibial nerve and sural nerve were identified and retracted. And cut. The tibial vessels were tied with silk ties. And cut. The flap of muscle and skin were made posteriorly. The tibia cut was beveled. Wounds were irrigated. And then the gastroc muscle flap was then brought up and sutured over the bone and then the skin posteriorly was sutured to the skin with nylon suture. Sterile dressings were applied patient was transferred to the PACU in stable condition.
[2023-07-31] MEDS: midazolam 1 mg/mL INJ 2 mL 2 MG IVP (16:27)
[2023-07-31] MEDS: labetalol 5 mg/mL SDV 20mL IVP (16:47)
--- NOTE | 2023-07-31 17:11 | ANE.PACU2 ---
Inpatient post-anesthesia follow up: Airway intact: Yes Vital signs: Temperature 98.9 F Pulse Rate 105 Respiratory Rate 18 Blood Pressure 165/95 Pulse Oximetry 92 Oxygen Delivery Me thod Room Air Oxygen Flow Rate 6 Fraction of Inspir ed Oxygen Hydration adequate: Yes Nausea and vomiting: No Pain level: 3 Mental status: Baseline
[2023-07-31] MEDS: acetaminophen 325 mg Tablet 650 MG PO (18:48)
[2023-07-31] MEDS: cyclobenzaprine 10 mg Tablet 5 MG PO (19:29)
[2023-07-31] MEDS: ibuprofen 800 mg tablet PO (19:29)
--- NOTE | 2023-07-31 20:17 | PC.NURSE ---
Patient refused dressing change and antibiotic ointment on back wound, patient states I can't move right now just wait until tomorrow Patient was educated on infection risk but still refuses.
[2023-07-31] MEDS: OLANZapine 5 mg ODT PO (20:34)
--- NOTE | 2023-07-31 21:03 | PC.NURSE ---
Patient had a phone at bedside, warehouse consultant, charge nurse, and security notified. Phone was confiscated, patient was agitated and was given PO med. Patient's mother was notified by charge nurse of 21 day hold procedure and visiting hours, patient's mother still had further questions and warehouse consultant talked to her on the phone and addressed further questions.
[2023-08-01] VITALS (14 sets, daily range): BP systolic 125–161; BP diastolic 78–92; PULSE 87–106; RESP 15–18; TEMP 36.5–36.8; O2SAT 96–98
[2023-08-01] MEDS: oxyCODONE 5 mg IR Tab/Cap PO ×5 (01:27→23:06)
[2023-08-01] MEDS: acetaminophen 325 mg Tablet 650 MG PO (01:30)
[2023-08-01] MEDS: vancomycin 1,500 MG/300 ML PIGGYBACK 200 MG IV (01:32)
[2023-08-01] MEDS: piperacillin-tazobactam 3.375 GM in sodium chloride 0.9% (plus) 50 ML IV (03:58)
[2023-08-01] MEDS: cyclobenzaprine 10 mg Tablet 5 MG PO ×3 (03:58→23:06)
[2023-08-01] MEDS: ibuprofen 800 mg tablet PO ×2 (03:58→16:18)
[2023-08-01 04:33] LABS: Basophils % 0.4 %; Eosinophils # 0.1 10^3/uL (0.0-0.8); Hematocrit 34.7 % (37-53); Lymphocytes # 1.1 10^3/uL (0.8-4.8); Lymphocytes % 13.9 %; Mean Corpuscular HGB Conc 31.7 g/dL (30-55); Mean Corpuscular Hemoglobin 26.8 pg (27-33); Mean Corpuscular Volume 84.6 fl (82-101); Mean Platelet Volume 9.6 fL (7.4-10.4); Monocytes # 0.7 10^3/uL (0.2-0.9); Monocytes % 8.9 %; Neutrophils # 6.08 10^3/uL (1.8-7.7); Neutrophils % 75.4 %; Nucleated Red Blood Cells % 0 %; Platelet Count 503 10^3/cmm (157-399); Red Cell Distribution Width 14.3 % (12.1-15.1); White Blood Count 8.06 10^3/uL (3.29-11.43)
--- NOTE | 2023-08-01 04:46 | PC.NURSE ---
When this nurse brought patient his prn pain medication he asked when he could have his gabapentin. This nurse told him it was scheduled for TID and he could have it at 9 am. He asked why he couldn't have it now and this nurse told him it was on a schedule. Patient then asked when he could have his flexeril, this nurse answered he could have it at 3:30 am, it is TID PRN. Patient became angry stating Why are you playing fucking games with my medications. This nurse stated We have to follow a schedule on your medications. Patient stated Why can't I just take all my pills at once whenever I want them, I don't want to follow a fucking schedule. This nurse responded Medications are scheduled for their effectiveness and your for safety, it could be dangerous to take all your pills whenever you want. Patient then yelled ok just give me the damn oxycodone. This nurse administered the oxycodone and tried to further educate patient on medications but patient stated Your'e acting like its gold.
[2023-08-01 04:57] LABS: Alanine Aminotransferase 12 U/L (0-41); Albumin Level 3.2 g/dL (3.5-5.2); Alkaline Phosphatase 121 U/L (40-130); Anion Gap 15.3 (5-19); Aspartate Amino Transferase 12 U/L (0-40); Blood Urea Nitrogen 9 mg/dL (6-20); Calcium 8.8 mg/dL (8.5-10.5); Carbon Dioxide 24 mmol/L (22-29); Chloride 103 mmol/L (98-107); Globulin 3.4 g/dL (1.3-4.6); Glomerular Filtration Rate 145.7 mL/min (90-130); Glucose 115 mg/dL (65-115); Osmolality Calculated 286 mOsm/kg (285-295); Potassium 4.3 mmol/L (3.5-5.1); Sodium 138 mmol/L (136-145); Total Bilirubin 0.2 mg/dL (0.15-1.2); Total Protein 6.6 g/dL (6.6-8.7)
--- NOTE | 2023-08-01 07:56 | P.PN_ITS ---
Subjective Subjective: POD 1 Patient resting comfortably Vitals/I&O/Wt Last Vital Signs Temp 98.0 F 08/01/23 07:41 Pulse 94 08/01/23 07:41 Resp 18 08/01/23 07:41 BP 131/81 08/01/23 07:41 Pulse Ox 98 08/01/23 07:41 O2 Del Method Room Air 08/01/23 07:41 O2 Flow Rate 6 07/31/23 16:09 07/31/23 08/01/23 08/01/23 22:59 06:59 14:59 Intake Total 590 / 940 350 / 1290 Output Total 50 / 450 Balance 540 / 490 350 / 840 Physical Exam Narrative: Patient is alert and orient x3 has good general appearance normal normal affect. Left BKA stump dressing clean and dry. There is no signs of erythema or drainage no signs of infection. Good motor strength throughout right lower extremity. Data 08/01/23 04:02 08/01/23 04:02 Micro: Microbiology 07/29/23 18:45 Wound Culture - Preliminary Ankle - #1 Coag positive Staphylococcus A&P Assessment and plan (1) Below-knee amputation of left lower extremity: Ice elevation. Physical therapy to evaluate. Continue incentive spirometry for pulmonary toilet. director construction services consult for placement. Attestations Medical Necessity Statement*: Defer to medical team Coding Level of Care Code Acute Code for Chg Fwd Diagnoses Below-knee amputation of left lower extremity S88.112A
[2023-08-01] MEDS: gabapentin 300 mg Capsule PO ×3 (08:40→21:07)
[2023-08-01] MEDS: ARIPiprazole 10 mg Tablet 20 MG PO (08:40)
[2023-08-01] MEDS: neomycin-poly-bacitracin oint 28 gm 1 APPLIC TOPICAL ×2 (08:40→21:49)
[2023-08-01] MEDS: docusate sodium 100 mg Capsule PO (10:47)
[2023-08-01] MEDS: magnesium hydroxide 30 mL UDC PO (10:50)
[2023-08-01] MEDS: HYDROmorphone 1 mg/mL INJ 1 mL IVP ×2 (11:38→21:07)
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
[2023-08-01] MEDS: hyDROXYzine 25 mg Capsule 50 MG PO (16:18)
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
[2023-08-01] MEDS: enoxaparin 40 mg/0.4 mL Syringe SUBCUT (19:02)
[2023-08-01] MEDS: trazodone 100 mg Tablet PO (23:06)
[2023-08-02] MEDS: LORazepam 2 mg Tablet PO ×2 (01:05→21:51)
--- NOTE | 2023-08-02 01:09 | PC.NURSE ---
Patient states I'm not going to take any more pain medicine. It helps for a little bit and then it makes it worse.
[2023-08-02 04:32] VITALS: BP 102/66; PULSE 98; RESP 16; TEMP 36.7; O2SAT 96
[2023-08-02 04:56] LABS: Basophils # 0.1 10^3/uL (0.0-0.1); Basophils % 0.9 %; Eosinophils # 0.3 10^3/uL (0.0-0.8); Eosinophils % 4.8 %; Hematocrit 34.2 % (37-53); Lymphocytes # 1.6 10^3/uL (0.8-4.8); Lymphocytes % 24.2 %; Mean Corpuscular HGB Conc 31.9 g/dL (30-55); Mean Corpuscular Hemoglobin 26.9 pg (27-33); Mean Corpuscular Volume 84.4 fl (82-101); Mean Platelet Volume 9.6 fL (7.4-10.4); Monocytes # 0.6 10^3/uL (0.2-0.9); Monocytes % 9.2 %; Neutrophils # 4.04 10^3/uL (1.8-7.7); Neutrophils % 60.7 %; Nucleated Red Blood Cells % 0 %; Platelet Count 500 10^3/cmm (157-399); Red Blood Count 4.05 10^6/uL (3.85-5.65); Red Cell Distribution Width 14.6 % (12.1-15.1); White Blood Count 6.65 10^3/uL (3.29-11.43)
[2023-08-02 05:21] LABS: Alanine Aminotransferase 10 U/L (0-41); Albumin Level 3.5 g/dL (3.5-5.2); Alkaline Phosphatase 106 U/L (40-130); Anion Gap 12.8 (5-19); Aspartate Amino Transferase 15 U/L (0-40); Blood Urea Nitrogen 7 mg/dL (6-20); Carbon Dioxide 27 mmol/L (22-29); Chloride 102 mmol/L (98-107); Globulin 3.1 g/dL (1.3-4.6); Glucose 89 mg/dL (65-115); Osmolality Calculated 283 mOsm/kg (285-295); Potassium 3.8 mmol/L (3.5-5.1); Sodium 138 mmol/L (136-145); Total Bilirubin 0.2 mg/dL (0.15-1.2); Total Protein 6.6 g/dL (6.6-8.7)
--- NOTE | 2023-08-02 07:00 | PM.PN ---
Subjective Subjective: POD 2 Patient resting comfortably. Vitals/I&O/Wt Last Vital Signs Temp 98.1 F 08/02/23 04:32 Pulse 98 08/02/23 04:32 Resp 16 08/02/23 04:32 BP 102/66 08/02/23 04:32 Pulse Ox 96 08/02/23 04:32 O2 Del Method Room Air 08/02/23 04:32 O2 Flow Rate 6 07/31/23 16:09 08/01/23 08/02/23 08/02/23 22:59 06:59 14:59 Intake Total 480 / 1010 Output Total 375 / 1225 700 / 1925 Balance 105 / -215 -700 / -915 Physical Exam Narrative: Patient is alert and orient x3 has good general appearance normal normal affect.? Left BKA stump dressing clean and dry.? There is no signs of erythema or drainage no signs of infection.? Good motor strength throughout right lower extremity.? Data 08/02/23 04:14 08/02/23 04:14 Micro: Microbiology 07/29/23 18:45 Wound Culture - Final Ankle - #1 Methicillin Resis Staph Aureus A&P Assessment and plan (1) Below-knee amputation of left lower extremity: Physical therapy occupational therapy to work with mobilization and stump triggers. Continue incentive spirometer for pulmonary toilet. patient financial services specialist work with placement. We will see the patient back in the office in 1 week's time for wound check. Attestations Medical Necessity Statement*: Defer to medical team Coding Level of Care Code Acute Code for Chg Fwd Diagnoses Below-knee amputation of left lower extremity S88.112A
[2023-08-02 07:37] VITALS: BP 128/82; PULSE 94; RESP 16; TEMP 36.7; O2SAT 97
[2023-08-02] MEDS: neomycin-poly-bacitracin oint 28 gm 1 APPLIC TOPICAL ×2 (08:01→21:16)
[2023-08-02] MEDS: ARIPiprazole 10 mg Tablet 20 MG PO (08:01)
[2023-08-02] MEDS: gabapentin 300 mg Capsule PO ×3 (08:01→21:17)
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
[2023-08-02 11:34] VITALS: BP 129/83; PULSE 116; RESP 16; TEMP 36.8; O2SAT 98
--- NOTE | 2023-08-02 12:02 | PC.SOCIAL ---
IMM update IMM not updated as patient is on a hold and not expected to dc in the next 24-48 hours.
[2023-08-02 15:21] VITALS: BP 121/82; PULSE 117; RESP 18; TEMP 36.7; O2SAT 97
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
[2023-08-02 20:20] VITALS: BP 128/80; PULSE 110; RESP 20; TEMP 36.9; O2SAT 98
[2023-08-02 22:53] VITALS: RESP 18
[2023-08-02] MEDS: oxyCODONE 5 mg IR Tab/Cap PO (22:53)
--- NOTE | 2023-08-02 23:37 | PHA.FALL ---
A Pharmacy Consult Was Conducted For Rigo Srivastava Due To: Mijares Fall Scale Risk Level: High Fall Risk On 08/02/23 20:00 And A Medication Fall Risk Score Greater Than 10. The Recommendations Are As Follows: Abilify PAPI: 2,3,4,5,7,8 Cyclobenzaprine PAPI: 1,3,4,9,10 Gabapentin PAPI: 1,3,4,5,6,7,8,10 Haloperidol PAPI: 1,3,4,5,7,8,10 Hydroxyzine PAPI: 1,7 Labetalol PAPI: 1,2,3,4,5,9,10 Lorazepam APPI: 1,3,4,5,6,8,10 Oxycodone PAPI: 1,2,3,4,5,6,7,8,9,10 Trazodone PAPI: 1,2,3,4,7,8,10 Ziprasidone PAPI: 2,3,4,5,7,8
[2023-08-03] VITALS (7 sets, daily range): BP systolic 111–118; BP diastolic 72–76; PULSE 98–106; RESP 16–20; TEMP 36.6–36.8; O2SAT 95–98
[2023-08-03] MEDS: cyclobenzaprine 10 mg Tablet 5 MG PO ×3 (05:00→21:57)
[2023-08-03] MEDS: oxyCODONE 5 mg IR Tab/Cap PO ×4 (06:28→21:57)
[2023-08-03] MEDS: gabapentin 300 mg Capsule PO ×3 (09:05→20:17)
[2023-08-03] MEDS: ARIPiprazole 10 mg Tablet 20 MG PO (09:06)
[2023-08-03] MEDS: ziprasidone hcl 40 mg Capsule PO (09:06)
[2023-08-03] MEDS: neomycin-poly-bacitracin oint 28 gm 1 APPLIC TOPICAL ×2 (09:09→20:22)
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
[2023-08-03] MEDS: trazodone 100 mg Tablet PO (20:28)
[2023-08-04] VITALS (8 sets, daily range): BP systolic 111–137; BP diastolic 66–70; PULSE 101–121; RESP 16–20; TEMP 36.6–37.1; O2SAT 97–99
[2023-08-04] MEDS: oxyCODONE 5 mg IR Tab/Cap PO ×5 (02:02→20:09)
[2023-08-04] MEDS: cyclobenzaprine 10 mg Tablet 5 MG PO ×3 (06:36→20:53)
[2023-08-04] MEDS: gabapentin 300 mg Capsule PO ×3 (07:57→20:54)
[2023-08-04] MEDS: ARIPiprazole 10 mg Tablet 20 MG PO (07:57)
--- NOTE | 2023-08-04 09:30 | PC.NURSE ---
told staff his back was fine, that the earlier shift put gel on it so it's okay refused dressing change
--- NOTE | 2023-08-04 15:06 | W.PM.NPUPNS ---
Subjective NPU Subjective: Patient presented today reporting that he is feeling better and adjusting to his amputation. We discussed that the new doctor Dr. Elise would be here tomorrow. He is excited about the senior living for his recovery and reported having his mail forwarded to the unit. Mental Status Exam MSE Comments: This is an overweight white male in hospital scrubs with limited grooming but adequate eye contact. His left postsurgical below-knee amputation appeared well wrapped and elevated. No abnormal movements except for psychomotor retardation. More cooperative with exam in no acute distress. Speech was more normal rate and volume. Mood okay and affect less energetic. Thought process linear and more organized with no notable tangentiality or stream of consciousness. Thought content: Patient denied suicidal or homicidal ideation, there were no delusions reported or noted, he denied auditory or visual hallucinations. Attention and concentration were limited and memory appeared intermittently reliable but none were formally tested. He is alert and oriented times person and place. Insight can judgment were improving and impulse control limited, but improving. Vitals/I&O/Wt Last Vital Signs Temp 97.8 F 08/04/23 13:23 Pulse 121 H 08/04/23 13:23 Resp 16 08/04/23 13:23 BP 137/66 08/04/23 13:23 Pulse Ox 98 08/04/23 13:23 O2 Del Method Room Air 08/04/23 06:00 O2 Flow Rate 6 07/31/23 16:09 08/04/23 08/04/23 08/04/23 06:59 14:59 22:59 Intake Total 480 / 480 Balance 480 / 480 Data NPU 08/02/23 04:14 08/02/23 04:14 Micro: Microbiology 07/29/23 19:00 Blood Culture - Final Blood NO GROWTH AFTER 5 DAYS 07/29/23 18:53 Blood Culture - Final Blood NO GROWTH AFTER 5 DAYS Microbiology 07/29/23 19:00 Blood Blood Culture - Final NO GROWTH AFTER 5 DAYS 07/29/23 18:53 Blood Blood Culture - Final NO GROWTH AFTER 5 DAYS A&P Assessment and plan (1) Mariaa: (2) History of mariaa: (3) Schizoaffective disorder, bipolar type: (4) Postoperative external wound disruption: Plan This is a 43 -year-old, white male, with history of multiple hospitalizations and outpatient services and multiple medication trials with 1 inpatient stay here and some distant outpatient services here who presents with history of addiction with unclear current use and past mental health challenges with clear mariaa on presentation here with history of mariaa. 1. Started Abilify 5 mg p.o. daily and increased to 10 mg with ultimate plan for long-acting injectable. Increased to 15 mg p.o. daily. Increased to 20 mg p.o. daily. Consider additional increase in the next few days. 2. Encourage individual, group, and milieu therapy. 3. Continue one-to-one checks for safety given his wraps for his lower leg/foot injury as well as boot. 4. Patient on 96-hour hold due to psychosis and impairment of impulse control. Submitted 21-day hold paperwork. He is on 21 day hold. 5. Patient had surgery and returned to NPU from his left below-knee amputation. We will follow hospitalist/surgery recommendations. It appears that a senior living has been identified for his convalescence likely in a week or so. Involuntary Hold Information 96 Hour Hold: 96 Hour Involuntary Admission: No Attestations NPU Medical Necessity Statement*: Inpatient hospitalization is medically necessary and the clinically appropriate intervention, at this time. We will monitor medications and make changes as indicated. Likely length of stay is 7-10 days. Coding Level of Care Code Acute Code for g Fwd Diagnoses Mariaa F30.9 History of mariaa Z86.59 Schizoaffective disorder, bipolar type F25.0 Postoperative external wound disruption T81.31XA
[2023-08-04] MEDS: neomycin-poly-bacitracin oint 28 gm 1 APPLIC TOPICAL (20:47)
[2023-08-04] MEDS: LORazepam 1 mg Tablet PO ×2 (21:02→21:56)
--- NOTE | 2023-08-05 06:40 | PC.NURSE ---
pt resting resp 16
[2023-08-05] MEDS: ARIPiprazole 10 mg Tablet 20 MG PO (08:42)
[2023-08-05] MEDS: gabapentin 300 mg Capsule PO ×3 (08:43→20:55)
[2023-08-05 08:48] VITALS: RESP 16
[2023-08-05] MEDS: oxyCODONE 5 mg IR Tab/Cap PO ×4 (08:48→22:10)
[2023-08-05] MEDS: cyclobenzaprine 10 mg Tablet 5 MG PO ×2 (11:00→18:10)
[2023-08-05 13:25] VITALS: BP 117/76; PULSE 109; RESP 16; TEMP 36.9; O2SAT 96
[2023-08-05 13:49] VITALS: RESP 15
--- NOTE | 2023-08-05 16:26 | W.PM.NPUPNS ---
Subjective NPU Subjective: 43-year-old white male with a history of schizoaffective disorder bipolar type admitted with manic symptoms. Patient had reported that others had forced him into going into skilled nursing. He had reported having difficulties with sleep. He reported that the Abilify had been helpful for him. He had reported the recent loss of his limb below the knee due to cellulitis. He had reported having problems with managing his medication regimen. He had reported a history of noncompliance with his medication. Mental Status Exam MSE Comments: This is an overweight white male in hospital scrubs with limited grooming but adequate eye contact. His left postsurgical below-knee amputation appeared well wrapped and elevated. No abnormal movements except for psychomotor retardation. He was more cooperative with exam in no acute distress. Speech was more normal rate and volume. Mood described as okay today. His affect appeared euthymic today. His thought process was linear and more organized with no notable tangentiality or stream of consciousness. Thought content: Patient denied suicidal or homicidal ideation, there were no delusions reported or noted, he denied auditory or visual hallucinations. Attention and concentration were limited and memory appeared intermittently reliable but none were formally tested. He is alert and oriented times person and place. Insight and judgment were improving and impulse control limited, but improving. Vitals/I&O/Wt Last Vital Signs Temp 98.4 F 08/05/23 13:25 Pulse 109 H 08/05/23 13:25 Resp 15 08/05/23 13:49 BP 117/76 08/05/23 13:25 Pulse Ox 96 08/05/23 13:25 O2 Del Method Room Air 08/04/23 19:49 O2 Flow Rate 6 07/31/23 16:09 Data NPU 08/02/23 04:14 08/02/23 04:14 A&P Assessment and plan (1) Mariaa: (2) History of mariaa: (3) Schizoaffective disorder, bipolar type: (4) Postoperative external wound disruption: Plan This is a 43 -year-old, white male, with history of multiple hospitalizations and outpatient services and multiple medication trials with 1 inpatient stay here and some distant outpatient services here who presents with history of addiction with unclear current use and past mental health challenges with clear mariaa on presentation here with history of mariaa. 1. Continue Abilify 20 mg daily. Continue gabapentin at 300 mg 3 times a day. 2. Encourage individual, group, and milieu therapy. 3. Continue one-to-one checks for safety given his wraps for his lower leg/foot injury as well as boot. 4. Patient on 96-hour hold due to psychosis and impairment of impulse control. Patient remains on a 21-day hold. 5. Patient had surgery and returned to NPU from his left below-knee amputation. We will follow hospitalist/surgery recommendations. It appears that a [facility] has been [facility] for his convalescence likely in a week or so. Involuntary Hold Information 96 Hour Hold: 96 Hour Involuntary Admission: No Attestations NPU Medical Necessity Statement*: Inpatient hospitalization is medically necessary and the clinically appropriate intervention, at this time. We will monitor medications and make changes as indicated. Likely length of stay is 5-7 days. Coding Level of Care Code Acute Code for g Fwd Diagnoses Mariaa F30.9 History of mariaa Z86.59 Schizoaffective disorder, bipolar type F25.0 Postoperative external wound disruption T81.31XA
[2023-08-05 18:10] VITALS: RESP 16
[2023-08-05 20:21] VITALS: BP 133/72; PULSE 125; RESP 18; TEMP 36.4; O2SAT 98
[2023-08-05 22:10] VITALS: RESP 16; O2SAT 98
[2023-08-05] MEDS: ziprasidone hcl 40 mg Capsule PO (23:05)
[2023-08-06] MEDS: LORazepam 2 mg Tablet PO (00:20)
[2023-08-06 06:00] VITALS: RESP 16
[2023-08-06] MEDS: gabapentin 300 mg Capsule PO ×3 (09:25→20:05)
[2023-08-06] MEDS: ARIPiprazole 10 mg Tablet 20 MG PO (09:25)
[2023-08-06] MEDS: cyclobenzaprine 10 mg Tablet 5 MG PO ×3 (09:27→23:59)
--- NOTE | 2023-08-06 09:27 | PC.NURSE ---
PRN FLEXERIL 5 MG GIVEN PO PER PT C/O SPASMS
--- NOTE | 2023-08-06 11:54 | W.PM.NPUPNS ---
Subjective NPU Subjective: 43-year-old white male with recent below-knee amputation of left lower extremity admitted with disorganized thinking and behavior with a previous diagnosis of schizophrenia. Patient had appeared somewhat agitated and was unable to fall asleep yesterday. He had reported in the past having been given Haldol and Thorazine while he was incarcerated for several years in [place]. He had reported having periods of time where he was unable to slow down his thoughts. He had admitted to struggling with being irritable and he did appear to require some as needed medication to manage his anxiety last night prior to going to bed. He had endorsed that his thoughts were still moving quickly. Mental Status Exam MSE Comments: This is an overweight white male in hospital scrubs with poor grooming and fair eye contact. His left postsurgical below-knee amputation appeared well wrapped and elevated. No abnormal movements other than mild psychomotor retardation. He was more cooperative with exam in no acute distress. Speech was more normal rate and volume. Mood described as okay. His affect appeared flat. His thought process was linear and not tangential today. Thought content: Patient denied suicidal or homicidal ideation. Less rambling noted. There were no delusions reported or noted. He denied auditory or visual hallucinations. Attention and concentration were limited and memory appeared intermittently reliable but none were formally tested. He is alert and oriented times person and place. Insight and judgment were improving and impulse control limited, but improving. Vitals/I&O/Wt Last Vital Signs Temp 97.5 F L 08/05/23 20:21 Pulse 125 H 08/05/23 20:21 Resp 16 08/06/23 06:00 BP 133/72 08/05/23 20:21 Pulse Ox 98 08/05/23 22:10 O2 Del Method Room Air 08/04/23 19:49 O2 Flow Rate 6 08/06/23 08:00 Data NPU 08/02/23 04:14 08/02/23 04:14 A&P Assessment and plan (1) Mariaa: (2) History of mariaa: (3) Schizoaffective disorder, bipolar type: (4) Postoperative external wound disruption: Plan This is a 43 -year-old, white male, with history of multiple hospitalizations and outpatient services and multiple medication trials with 1 inpatient stay here and some distant outpatient services here who presents with history of addiction with unclear current use and past mental health challenges with clear mariaa on presentation here with history of mariaa. 1. Increase Abilify 30 mg daily. Continue gabapentin at 300 mg 3 times a day. Add olanzapine at night 5mg for sleep. 2. Encourage individual, group, and milieu therapy. 3. Continue one-to-one checks for safety given his wraps for his lower leg/foot injury as well as boot. 4. Patient on 96-hour hold due to psychosis and impairment of impulse control. Patient remains on a 21-day hold. 5. Patient had surgery and returned to NPU from his left below-knee amputation. We will follow hospitalist/surgery recommendations. It appears that a longterm has been identified for his convalescence likely in a week or so. Involuntary Hold Information 96 Hour Hold: 96 Hour Involuntary Admission: No Attestations NPU Medical Necessity Statement*: Inpatient hospitalization is medically necessary and the clinically appropriate intervention, at this time. We will monitor medications and make changes as indicated. His likely length of stay is 5-7 days. Coding Level of Care Code Acute Code for [facility] Fwd Diagnoses Mariaa F30.9 History of mariaa Z86.59 Schizoaffective disorder, bipolar type F25.0 Postoperative external wound disruption T81.31XA
[2023-08-06 11:58] VITALS: RESP 16; O2SAT 98
[2023-08-06] MEDS: oxyCODONE 5 mg IR Tab/Cap PO ×3 (11:58→20:05)
[2023-08-06 14:00] VITALS: BP 144/77; PULSE 109; RESP 15; TEMP 36.3; O2SAT 97
[2023-08-06 16:11] VITALS: RESP 16; O2SAT 98
[2023-08-06] MEDS: acetaminophen 325 mg Tablet 650 MG PO (18:14)
[2023-08-06 20:05] VITALS: RESP 20
[2023-08-06] MEDS: OLANZapine 5 mg TABLET PO (20:05)
[2023-08-06 20:09] VITALS: PULSE 97; RESP 18; TEMP 36.8; O2SAT 95
[2023-08-07] VITALS (9 sets, daily range): BP systolic 114–115; BP diastolic 47–77; PULSE 101–120; RESP 16–18; TEMP 36.4–36.8; O2SAT 96–100
[2023-08-07] MEDS: oxyCODONE 5 mg IR Tab/Cap PO ×6 (00:02→20:43)
[2023-08-07] MEDS: calcium carbonate 500 mg Chew Tablet 1000 MG PO (05:21)
[2023-08-07] MEDS: cyclobenzaprine 10 mg Tablet 5 MG PO ×3 (08:39→20:01)
[2023-08-07] MEDS: ARIPiprazole 30 mg Tablet PO (08:39)
[2023-08-07] MEDS: gabapentin 300 mg Capsule PO ×3 (08:39→20:00)
--- NOTE | 2023-08-07 08:43 | PC.NURSE ---
During morning assessment, patient stated that he is hearing boices saying that the psychiatrist is a jackass . Patient denies SI,HI, depression, and anxiety. During assessment, patient was perseverating on the doctor not being competent, in his opinion.
[2023-08-07] MEDS: neomycin-poly-bacitracin oint 28 gm 1 APPLIC TOPICAL ×2 (10:02→21:01)
--- NOTE | 2023-08-07 13:01 | PC.NURSE ---
Attempting to determine whether patient needs wound dressing changed. Dr. Marino recommended we call Dexter Churchill or Dr. Campos. Neither are on-call. Dr. Cortes construction project mgr at this time--didn't answer. Property Technician left message for him to call.
--- NOTE | 2023-08-07 14:11 | PC.NURSE ---
PRN FLEXERIL 5 MG GIVEN PO PER PT C/O SPASMS
--- NOTE | 2023-08-07 15:10 | W.PM.NPUPNS ---
Subjective NPU Subjective: 43-year-old white male with recent below-knee amputation of left lower extremity admitted with disorganized thinking and behavior with a previous diagnosis of schizophrenia. The patient had continue to report that his thoughts were moving quickly. He had difficulties with falling asleep. He had reported having periods of time where he did not sleep. He struggled with attendance in groups. He had continued to report having struggled with his thoughts and reported a history of unusual behavior that had led to incarceration including arson. He had expressed gratitude with the potential to get additional help after his recent amputation and was willing to go to a usp when stabilized here. Mental Status Exam MSE Comments: This is an overweight white male in hospital scrubs with limited grooming but adequate eye contact. His left postsurgical below-knee amputation appeared well wrapped and elevated. No abnormal movements except for psychomotor retardation. He was cooperative with exam in no acute distress. Speech was more normal rate and volume. Mood described as tired. His affect was mood incongruent and irritable. Thought process: still appeared tangential and at times expansive. Thought content: Patient denied suicidal or homicidal ideation, there were no delusions reported or noted, he denied auditory or visual hallucinations. Attention and concentration was poor. He is alert and oriented times person and place. Insight was poor. Her judgment was poor. Impulse control was poor. Vitals/I&O/Wt Last Vital Signs Temp 98.2 F 08/07/23 14:00 Pulse 101 H 08/07/23 14:00 Resp 16 08/07/23 14:00 BP 114/76 08/07/23 14:00 Pulse Ox 96 08/07/23 14:00 O2 Del Method Room Air 08/07/23 14:00 O2 Flow Rate 6 08/07/23 08:00 Data NPU 08/02/23 04:14 08/02/23 04:14 A&P Assessment and plan (1) Mariaa: (2) History of mariaa: (3) Schizoaffective disorder, bipolar type: (4) Postoperative external wound disruption: Plan This is a 43 -year-old, white male, with history of multiple hospitalizations and outpatient services and multiple medication trials with 1 inpatient stay here and some distant outpatient services here who presents with history of addiction with unclear current use and past mental health challenges with clear mariaa on presentation here with history of mariaa. 1. Continue Abilify 30 mg daily. Continue gabapentin at 300 mg 3 times a day. Continue olanzapine at night 5mg po qhs. Add Klonopin 1mg at night. 2. Encourage individual, group, and milieu therapy. 3. Continue one-to-one checks for safety given his wraps for his lower leg/foot injury as well as boot. 4. Patient on 96-hour hold due to psychosis and impairment of impulse control. Patient remains on a 21-day hold. 5. Patient had surgery and returned to NPU from his left below-knee amputation. We will follow hospitalist/surgery recommendations. It appears that a usp has been identified for his convalescence likely in a week or so. Involuntary Hold Information 96 Hour Hold: 96 Hour Involuntary Admission: No Attestations NPU Medical Necessity Statement*: Inpatient hospitalization is medically necessary and the clinically appropriate intervention, at this time. We will monitor medications and make changes as indicated. His likely length of stay is 5-7 days. Coding Level of Care Code Acute Code for [facility] Fwd Diagnoses Mariaa F30.9 History of mariaa Z86.59 Schizoaffective disorder, bipolar type F25.0 Postoperative external wound disruption T81.31XA
[2023-08-07] MEDS: OLANZapine 5 mg TABLET PO (20:41)
[2023-08-07] MEDS: CLONazepam 1 mg Tablet PO (20:42)
[2023-08-08 06:00] VITALS: RESP 16
[2023-08-08 08:35] VITALS: RESP 18
[2023-08-08] MEDS: gabapentin 300 mg Capsule PO ×3 (08:35→19:57)
[2023-08-08] MEDS: ARIPiprazole 30 mg Tablet PO (08:35)
[2023-08-08] MEDS: oxyCODONE 5 mg IR Tab/Cap PO ×3 (08:35→17:46)
[2023-08-08] MEDS: cyclobenzaprine 10 mg Tablet 5 MG PO ×2 (08:40→16:35)
[2023-08-08] MEDS: neomycin-poly-bacitracin oint 28 gm 1 APPLIC TOPICAL ×2 (10:35→20:25)
[2023-08-08 12:59] VITALS: RESP 18
[2023-08-08 13:04] VITALS: BP 122/72; PULSE 113; RESP 18; TEMP 37.3; O2SAT 94
--- NOTE | 2023-08-08 16:34 | P.NPUPN_ITS ---
Subjective NPU Subjective: 43-year-old white male with recent below-knee amputation of left lower extremity admitted with disorganized thinking and behavior with a previous diagnosis of schizophrenia. Patient was reporting no side effects from his medication. He had reported that his thoughts were moving slower. He had reported less anxiety and stated that he was able to sleep throughout the whole night with the a ddition of 1 mg of Klonopin. He had appeared less intrusive. He denied having any thoughts of hurting himself or others. He had expressed desire to go home if he was unable to enter into a care home to help with managing his newly amputated leg. Mental Status Exam MSE Comments: This is an overweight white male in hospital scrubs with limited grooming but adequate eye contact. His left postsurgical below-knee amputation appeared well wrapped and elevated. No abnormal movements except for mild psychomotor retardation. He was cooperative with exam in no acute distress. Speech was more normal rate and volume. Mood described as better. His affect was brighter today. Thought process: Appeared more linear today. Thought content: Patient denied suicidal or homicidal ideation, there were no delusions reported or noted, he denied auditory or visual hallucinations. Attention span was i mproving and concentration appeared better. He is alert and oriented times person and place. Insight was improving. His judgment was fair. Impulse control was poor. Vitals/I&O/Wt Last Vital Signs Temp 99.1 F 08/08/23 13:04 Pulse 113 H 08/08/23 13:04 Resp 18 08/08/23 13:04 BP 122/72 08/08/23 13:04 Pulse Ox 94 08/08/23 13:04 O2 Del Method Room Air 08/08/23 13:04 O2 Flow Rate 6 08/07/23 08:00 Data NPU 08/02/23 04:14 08/02/23 04:14 A&P Assessment and plan (1) Mariaa: (2) History of mariaa: (3) Schizoaffective disorder, bipolar type: (4) Postoperative external wound disruption: Plan This is a 43 -year-old, white male, with history of multiple hospitalizations and outpatient services and multiple medication trials with 1 inpatient stay here and some distant outpatient services here who presents with history of addiction with unclear current use and past mental health challenges with clear mariaa on presentation here with history of mariaa. 1. Continue Abilify 30 mg daily. Continue gabapentin at 300 mg 3 times a day. Continue olanzapine at night 5mg po qhs. Continue Klonopin 1mg at night. Improved sleep and mood noted. 2. Encourage individual, group, and milieu therapy. 3. Continue one-to-one checks for safety given his wraps for his lower leg/foot injury as well as boot. 4. Patient on 96-hour hold due to psychosis and impairment of impulse control. Patient remains on a 21-day hold. 5. Patient had surgery and returned to NPU from his left below- knee amputation. We will follow hospitalist/surgery recommendations. It appears that a care home has been identified for his convalescence likely in a week or so. Involuntary Hold Information 96 Hour Hold: 96 Hour Involuntary Admission: No Attestations NPU Medical Necessity Statement*: Inpatient hospitalization is medically necessary and the clinically appropriate intervention, at this time. We will monitor medications and make changes as indicated. His likely length of stay is 3-5 days. Coding Level of Care Code Acute Code for [facility] Fwd Diagnoses Mariaa F30.9 History of mariaa Z86.59 Schizoaffective disorder, bipolar type F25.0 Postoperative external wound disruption T81.31XA
[2023-08-08] MEDS: acetaminophen 325 mg Tablet 650 MG PO (16:35)
--- NOTE | 2023-08-08 16:41 | PC.NURSE ---
pt up at nurses station pointing at the glass exit door and stating my dad paid that meir and nurses to tell places that I am rude and demanding so I won't get a place to stay . when I asked patient who he was talking about pt said that meir that just left and if i knew his address I would fuck him up because he is lying about me ever acting like that. I explained to patient that speaking in a threatening manner against one of our personnel is not acceptable behavior. pt said well he should be lying about me. turned away from nurses station and walked away.
--- NOTE | 2023-08-08 16:53 | PC.NURSE ---
pt requested for staff to give his check $650.00 to his mother and a copy of his [employer] id card. pt family member and patient sign documentation for release of check and copy of [employer] id card.
--- NOTE | 2023-08-08 16:56 | PC.NURSE ---
dressing change preformed. cleaned with normal saline dressed with Xeroform with 4x4 guaze pads and lightley tiffanie wrap over stump. sugical area clean and intact. no drainage or redness. pt tolerated procedure well. called [facility]-waiting for call back in order to inform him physical therapy was not able to place stump trade facilitator and they suggest order for [facility] upon discharge.
[2023-08-08 17:46] VITALS: RESP 18
[2023-08-08] MEDS: OLANZapine 5 mg TABLET PO (19:57)
[2023-08-08] MEDS: CLONazepam 1 mg Tablet PO (19:57)
[2023-08-08 19:58] VITALS: BP 137/77; PULSE 106; RESP 17; TEMP 36.4; O2SAT 96
[2023-08-08] MEDS: hyDROXYzine 25 mg Capsule 50 MG PO (19:59)
[2023-08-09] VITALS (7 sets, daily range): BP systolic 106–146; BP diastolic 67–76; PULSE 96–108; RESP 14–20; TEMP 36.7–37.2; O2SAT 96–97
[2023-08-09] MEDS: oxyCODONE 5 mg IR Tab/Cap PO ×4 (06:46→19:59)
[2023-08-09] MEDS: cyclobenzaprine 10 mg Tablet 5 MG PO ×3 (06:47→21:17)
[2023-08-09] MEDS: ARIPiprazole 30 mg Tablet PO (07:49)
[2023-08-09] MEDS: gabapentin 300 mg Capsule PO (07:50)
[2023-08-09] MEDS: neomycin-poly-bacitracin oint 28 gm 1 APPLIC TOPICAL ×2 (10:43→20:01)
[2023-08-09] MEDS: hyDROXYzine 25 mg Capsule 50 MG PO (10:50)
[2023-08-09] MEDS: gabapentin 400 mg Capsule PO ×2 (14:49→19:59)
--- NOTE | 2023-08-09 16:10 | P.NPUPN_ITS ---
Subjective NPU Subjective: 43-year-old white male with recent below-knee amputation of left lower extremity admitted with disorganized thinking and behavior with a previous diagnosis of schizophrenia. The patient had continued problems with some inappropriate behavior on the unit with his one-to-one as he had been somewhat verbally abusive towards her. He had reported desire to go to a retirement. He had been sleeping better. He was able to attend groups. Patient residing on 21 day hold. Patient scheduled for for follow-up from his below-knee amputation remains unclear. Mental Status Exam MSE Comments: This is an overweight white male in hospital scrubs with limited grooming but adequate eye contact. His left postsurgical below-knee amputation appeared well wrapped and elevated. No abnormal movements except for mild psychomotor retardation. He was cooperative with exam in no acute distress. Speech was m ore normal rate and volume. Mood described as okay. His affect was irritable today and mood incongruent. Thought process: Linear. Thought content: Patient denied suicidal or homicidal ideation, there were no delusions reported or noted, he denied auditory or visual hallucinations. Attention span was improving and concentration appeared better. He is alert and oriented times person and place. Insight was improving. His judgment was fair. Impulse control was poor. Vitals/I&O/Wt Last Vital Signs Temp 98.2 F 08/09/23 14:00 Pulse 96 08/09/23 14:00 Resp 17 08/09/23 14:00 BP 120/72 08/09/23 14:00 Pulse Ox 96 08/09/23 14:00 O2 Del Method Room Air 08/09/23 14:00 O2 Flow Rate 6 08/07/23 08:00 Data NPU 08/02/23 04:14 08/02/23 04:14 A&P Assessment and plan (1) Mariaa: (2) History of mariaa: (3) Schizoaffective disorder, bipolar type: (4) Postoperative external wound disruption: Plan This is a 43 -year-old, white male, with history of multiple hospitalizations and outpatient services and multiple medication trials with 1 inpatient stay here and some distant outpatient services here who presents with history of addiction with unclear current use and past mental health challenges with clear mariaa on presentation here with history of mariaa. 1. Continue Abilify 30 mg daily. Continue gabapentin at 300 mg 3 times a day. Continue olanzapine at night 5mg po qhs. Continue Klonopin 1mg at night. Improved sleep and mood noted. 2. Encourage individual, group, and milieu therapy. 3. Continue one-to-one checks for safety given his wraps for his lower leg/foot injury as well as boot. 4. Patient on 96-hour hold due to psychosis and impairment of impulse control. Patient remains on a 21-day hold. 5. Patient had surgery and returned to NPU from his left below-knee amputation. We will follow hospitalist/surgery recommendations. Patient likely to go to retirement in [place], necessary to work on visit with Wound care clinic somewhere in [place]. Involuntary Hold Information 96 Hour Hold: 96 Hour Involuntary Admission: No Attestations NPU Medical Necessity Statement*: Inpatient hospitalization is medically necessary and the clinically appropriate intervention, at this time. We will monitor medications and make changes as indicated. His likely length of stay is 3-5 days. Coding Level of Care Code Acute Code for [facility] Fwd Diagnoses Mariaa F30.9 History of mariaa Z86.59 Schizoaffective disorder, bipolar type F25.0 Postoperative external wound disruption T81.31XA
--- NOTE | 2023-08-09 16:57 | PC.NURSE ---
wound care to pt previous incision clean and open to air.
[2023-08-09] MEDS: acetaminophen 325 mg Tablet 650 MG PO (19:20)
[2023-08-09] MEDS: CLONazepam 1 mg Tablet PO (19:59)
[2023-08-09] MEDS: OLANZapine 5 mg TABLET PO (19:59)
[2023-08-10] VITALS (8 sets, daily range): BP systolic 121–133; BP diastolic 67–80; PULSE 89–116; RESP 15–20; TEMP 36.6–36.9; O2SAT 96–99
[2023-08-10] MEDS: oxyCODONE 5 mg IR Tab/Cap PO ×5 (06:26→22:43)
[2023-08-10] MEDS: cyclobenzaprine 10 mg Tablet 5 MG PO ×3 (06:26→22:44)
--- NOTE | 2023-08-10 07:54 | P.PN_ITS ---
Subjective Subjective: Patient resting comfortably. Has intermittent pains to the left stump. Vitals/I&O/Wt Last Vital Signs Temp 97.8 F 08/10/23 06:00 Pulse 116 H 08/10/23 06:00 Resp 17 08/10/23 06:26 BP 146/76 08/09/23 20:15 Pulse Ox 99 08/10/23 06:00 O2 Del Method Room Air 08/10/23 06:00 O2 Flow Rate 6 08/07/23 08:00 08/09/23 08/10/23 08/10/23 22:59 06:59 14:59 Intake Total 530 / 530 Output Total 450 / 450 Balance 80 / 80 Physical Exam Narrative: Left stump is clean and dry with sheri intact. No signs of infection. Data 08/02/23 04:14 08/02/23 04:14 A&P Assessment and plan (1) Below-knee amputation of left lower extremity: At this point attempting to coordinate with [employer] and [employer] to obtain a stump water superintendent. Discussed at length with the patient about my concerns of going to an environment where increased risk of infection presents a higher risk. We will have the sheri removed in 1 week's time we will coordinate with the prosthetic company to obtain the stump water superintendent and move towards preparation for prosthetic limb. In the meantime want him to keep the stump clean and dry with regular dressing changes. We will see him back in the office in 1 week's time for staple removal and wound check. Continue incentive spirometry for pulmonary toilet. Attestations Medical Necessity Statement*: Defer to medical team Coding Level of Care Code Acute Code for Chg Fwd Diagnoses Below-knee amputation of left lower extremity S88.112A
[2023-08-10] MEDS: ARIPiprazole 30 mg Tablet PO (08:07)
[2023-08-10] MEDS: gabapentin 400 mg Capsule PO ×3 (08:07→20:05)
[2023-08-10] MEDS: neomycin-poly-bacitracin oint 28 gm 1 APPLIC TOPICAL ×2 (08:55→20:05)
[2023-08-10] MEDS: docusate sodium 100 mg Capsule PO (08:55)
[2023-08-10] MEDS: hyDROXYzine 25 mg Capsule 50 MG PO ×2 (12:16→20:05)
--- NOTE | 2023-08-10 14:51 | W.PM.NPUPNS ---
Subjective NPU Subjective: 43-year-old white male with recent below-knee amputation of left lower extremity admitted with disorganized thinking and behavior with a previous diagnosis of schizophrenia. He reported no side effects from his medications. He had continued to perseverate over issues stating that he had been misrepresented and this was why he was not allowed to go to a [facility]. Patient was informed that he did not qualify for transition to a [facility] to help with aiding his most recent surgical procedure. Patient remained ambivalent about his discharge location although he stated that he would like to have his services maintained in [place] including his follow-up for wound care. He had reported that he may consider living with his mother in the interim. Patient was redirectable and he continued to require one-to-one due to his recent surgical procedure and the presence of the use of a wheelchair. The patient had continued to at times to appear verbally inappropriate to staff and did require some redirection during these periods. Mental Status Exam MSE Comments: This is an overweight white male in hospital scrubs with limited grooming but adequate eye contact. His left postsurgical below-knee amputation appeared well wrapped and elevated. No abnormal movements except for mild psychomotor retardation. He was partially cooperative with exam in no acute distress. Speech was more normal rate and volume with some brief periods of stammering and noted. Mood described as okay. His affect was irritable. Thought process: Linear. Thought content: Patient denied suicidal or homicidal ideation, There were no delusions reported or noted, he denied auditory or visual hallucinations. Attention span was variable. He is alert and oriented times person and place. Insight was improving. His judgment was fair. Impulse control was limited. Vitals/I&O/Wt Last Vital Signs Temp 97.8 F 08/10/23 06:00 Pulse 116 H 08/10/23 06:00 Resp 16 08/10/23 14:34 BP 146/76 08/09/23 20:15 Pulse Ox 98 08/10/23 14:34 O2 Del Method Room Air 08/10/23 06:00 O2 Flow Rate 6 08/07/23 08:00 08/09/23 08/10/23 08/10/23 22:59 06:59 14:59 Intake Total 530 / 530 Output Total 450 / 450 Balance 80 / 80 Data NPU 08/02/23 04:14 08/02/23 04:14 A&P Assessment and plan (1) Below-knee amputation of left lower extremity: (2) History of joanna: (3) Schizoaffective disorder, bipolar type: (4) Postoperative external wound disruption: Plan This is a 43 -year-old, white male, with history of multiple hospitalizations and outpatient services and multiple medication trials with 1 inpatient stay here and some distant outpatient services here who presents with history of addiction with unclear current use and past mental health challenges with clear joanna on presentation here with history of joanna. 1. Continue Abilify 30 mg daily. Continue gabapentin at 300 mg 3 times a day. Continue olanzapine at night 5mg po qhs. Continue Klonopin 1mg at night. Improved sleep and mood noted. 2. Encourage individual, group, and milieu therapy. 3. Continue one-to-one checks for safety given his wraps for his lower leg/foot injury as well as boot. 4. Patient on 96-hour hold due to psychosis and impairment of impulse control. Patient remains on a 21-day hold. 5. Patient had surgery and returned to NPU from his left below-knee amputation. We will follow hospitalist/surgery recommendations. Patient likely to go to jail in [place], necessary to work on visit with Wound care clinic somewhere in [place] or [place]. Involuntary Hold Information 96 Hour Hold: 96 Hour Involuntary Admission: No Attestations NPU Medical Necessity Statement*: Inpatient hospitalization is medically necessary and the clinically appropriate intervention, at this time. We will monitor medications and make changes as indicated. His likely length of stay is 1-2 with discharge likely tommorow. Coding Level of Care Code Acute Code for g Fwd Diagnoses Below-knee amputation of left lower extremity S88.112A History of joanna Z86.59 Schizoaffective disorder, bipolar type F25.0 Postoperative external wound disruption T81.31XA
--- NOTE | 2023-08-10 16:35 | P.PN_ITS ---
Subjective Subjective: He is doing well and making arrangemenst for discharge for tomorrow. He has been coordinating with psychiatry team and orthopedics. His mom will be helping him with dressing changes at home. His wounds are healing well. Vitals/I&O/Wt Last Vital Signs Temp 98.2 F 08/10/23 14:00 Pulse 89 08/10/23 14:00 Resp 16 08/10/23 14:34 BP 121/80 08/10/23 14:00 Pulse Ox 98 08/10/23 14:34 O2 Del Method Room Air 08/10/23 06:00 O2 Flow Rate 6 08/07/23 08:00 Physical Exam Const: COMMON NORMALS: patient oriented x3 and alert GENERAL APPEARANCE: cooperative ORIENTATION/CONSCIOUSNESS: Yes awake HENMT: COMMON NORMALS: oropharynx normal Neck/C-Spine: COMMON NORMALS: no JVD Resp: COMMON NORMALS: normal respiratory effort and clear to auscultation bilaterally AUSCULTATION: clear to auscultation bilaterally Cardio: COMMON NORMALS: no JVD, regular rhythm, S1 normal heart sound present, S2 normal heart sound present and No murmurs present (Cardio) RHYTHM: regular rhythm HEART SOUNDS: S1 normal heart sound present and S2 normal heart sound present GI: COMMON NORMALS: Normal to inspection, nondistended, normoactive bowel sounds present, Soft to palpation and non-tender PALPATION: Yes Soft to palpation Back/Pelvis: OTHER: Spine wound healed well. No open, red or draining areas. Few tiny spots of healthy appearing eschar. Extremity: COMMON NORMALS: no joint enlargement and no pedal edema OTHER: L BKA Neuro: COMMON NORMALS: patient oriented x3 and moves all extremities SENSORIUM/ORIENTATION: Yes alert Skin: COMMON NORMALS: no rashes or lesions noted GENERAL SKIN EXAM: no rashes or lesions noted Data 08/02/23 04:14 08/02/23 04:14 A&P Assessment and plan (1) Osteomyelitis of ankle, left, acute: (2) Non-pressure chronic ulcer of left ankle with fat layer exposed: (3) Fracture of distal end of left fibula: Qualifiers: Encounter type: sequela Fracture type: open Fracture morphology: other fracture (4) Schizoaffective disorder, bipolar type: (5) History of joanna: Plan 43-year-old gentleman admitted to Neuropsych Unit with history of joanna and schizophrenia with recent history of multiple traumatic fractures requiring multiple or including complicated open fracture of left ankle requiring external fixator hardware which was internalized at an [facility] admitted to Neuropsych Unit for joanna being followed by podiatry having concerns for purulence drainage from the wound found to have CT changes concerning for osteomyelitis. Osteomyelitis/deep tissue infection: Dsicussed with psychiatry. He was seen by ortho today, reassessed and given instructions to follow up for suture removal in 1 week which he intends to keep. He also intends to follow up with primary provider. Ordered wound care supplies including saline for him and dressing was changed with instructions for him by RN. His mom will be helping him with dressings. He knows to seek medical attention in case of any worsening or new concerning symptoms. Arrangements are also underway by ortho for stump munitions worker. Spinal wound looks good without concerns for localized infection. Follow up in office. Schizophrenia/joanna: Treatment as per psychiatric team. Arrangements for follow up underway. He knows to seek help in case of any worsening symptoms. Attestations Medical Necessity Statement*: Continue hospitalization for psychiatric care and preparations for discharge. Diagnoses Osteomyelitis of ankle, left, acute M86.172 Non-pressure chronic ulcer of left ankle with fat layer exposed L97.322 Fracture of distal end of left fibula S82.832A Encounter type: sequela Fracture type: open Fracture morphology: other fracture Schizoaffective disorder, bipolar type F25.0 History of joanna Z86.59
--- NOTE | 2023-08-10 16:54 | PC.NURSE ---
Dr. Beasley has ordered bandages, etc for patient to take with him upon discharge but HOME closed. This nurse contacted [employer] to see if she could find some things. Waiting to hear back
[2023-08-10] MEDS: OLANZapine 5 mg TABLET PO (20:05)
[2023-08-10] MEDS: CLONazepam 1 mg Tablet PO (20:05)
[2023-08-11 06:00] VITALS: BP 106/72; PULSE 109; RESP 18; TEMP 36.4; O2SAT 100
[2023-08-11 06:09] VITALS: RESP 16
[2023-08-11] MEDS: oxyCODONE 5 mg IR Tab/Cap PO ×2 (06:09→09:55)
[2023-08-11] MEDS: cyclobenzaprine 10 mg Tablet 5 MG PO ×2 (06:10→14:08)
--- NOTE | 2023-08-11 09:13 | DCPLANNER ---
IMM completed 08/11/23 @ 0914. Pt was given a copy of rights and he stated he understood his rights.
[2023-08-11] MEDS: docusate sodium 100 mg Capsule PO (09:23)
[2023-08-11] MEDS: gabapentin 400 mg Capsule PO ×2 (09:23→14:53)
[2023-08-11] MEDS: ARIPiprazole 30 mg Tablet PO (09:23)
[2023-08-11 09:55] VITALS: RESP 17
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
[2023-08-11 14:00] VITALS: BP 110/70; PULSE 103; RESP 18; TEMP 36.7; O2SAT 97
[2023-08-11] MEDS: hyDROXYzine 25 mg Capsule 50 MG PO (15:18)
[2023-08-11 15:58] VITALS: BP 110/70; PULSE 103; RESP 18; TEMP 36.7; O2SAT 97
--- NOTE | 2023-08-11 16:59 | PC.NURSE ---
patient was discharged with supplies which would not go on wound assessment. Patient given two boxes of 4x4 dressings, total 100 of 5x9 xeroform guaze. patient discharged in scrubs as his clothes were not on the unit. Patient refused to wait any longer and his mother was driving him home. Patient stated in front of his mother that his current pain was a 0/10. All medication including the medication from last night that was in the pyxis was given to the patient
--- NOTE | 2023-08-14 09:56 | PC.NURSE ---
PT CALLED REQUESTING AN APPOINTMENT WITH DOCTOR JERNIGAN. EXPLAINED TO PT THAT DR. JERNIGAN ONLY WORKS WITH THE ACUTE PATIENTS WHILE THEY ARE IN THE HOSPITAL. PT STATES HE CANT QUIT TALKING, HE KEEPS CHANGING THE SUBJECTS AND HE IS GETTING ON HIS MOMS NERVES. ASKED PT HIS NAME HE STATES HIS NAME SHARON WILSON WHEN ASKED HOW TO SPELL HIS LAST NAME HE STATE SHARON CARR WHEN I ATTEMPTED TO FIND HIM IN THE SYSTEM PT DID NOT EXIST ASKED AGAIN HOW TO SPELL HIS LAST NAME PT STATED WELL IT LEGALLY IS WILSON BUT I DID TRY TO GET IT CHANGED BUT THEY SAID IT IS IN APPROPRIATE SO I JUST CHANGE MY NAME ALL THE TIME. EXPLAINED TO PT THAT HE NEEDS TO GIVE US HIS LEGAL NAME SO I CAN LOOK UP HIS ACCOUNT AND HIS BIRTHDAY TO BE ABLE TO VERIFY IDENTITY. I WENT OVER PT MEDICATION HE RECEIVED UPON DISCHARGE PT STATES HE DOESN'T KNOW IF HE GOT ANY MEDICATIONS. WELL I DID GET SOME MEDS THEY ARE ON MY COFFEE TABLE, YOU KNOW I HAD AN MY LEG CUT OFF, I HAVEN'T BEEN TAKING ALOT OF MY PAIN MEDICATIONS, CAN I TAKE MY ZYPREXA MAYBE THE ZYPREXA IS WHAT I NEED TO QUIT TALKING CAN I TAKE THREE OF THEM, HOW MANY ZYPREXA CAN I TAKE AT ONE TIME. I ASKED PT IF HE HAD BEEN TAKING HIS ARIPIPRAZOLE (ABILIFY) 30MG SINCE HE HAS BEEN DISCHARGED PT STATES HE DOES NOT HAVE THE ABILIFY AND HE IS AT HIS MOTHERS AND IT IS ONLY HIM AND HER THERE, AN NOONE WOULD TAKE HIS MEDICINE, AND HE MUST HAVE LOST IT ,CAN I TAKE THE ZYPREXA I WENT THROUGH PT MEDICATION THAT HE RECIEVED AT DISCHARGE PT STATED HE DID HAVE ALL OF THEM BUT HE MUST HAVE LOST THAT MEDICATION. PT ASKED IF HE HAD AN APPOINTMENT WITH DOCTOR JERNIGAN BECAUSE HE ONLY WANTED TO SEE HIM. WHEN I EXPLAINED AGAIN THAT DOCTOR JERNIGAN ONLY SEES ACUTE PT BUT ON HIS DISCHARGE PAPERWORK HIS MEDICATION LIST AND UPCOMING APPOINTMENT WITH [facility]. PT THEN STATED THAT HE HAD ALOT OF PAPERS SO HE JUST KEPT THE ONES THAT WERE IMPORTANT AND THREW AWAY THE OTHERS AND HE DID NOT HAVE THAT ONE. PT MOTHER THEN STATED THAT HE MUST HAVE LOST THEM THAT WE SHOULD HAVE GIVEN HER THE PAPERS AND MEDICATIONS. I EXPLAINED THAT THE PATIENT SHOULD HAVE GIVEN HER THE PAPERWORK IF HE DESIRED HER TO HAVE IT. I INFORMED PT OF APPOINTMENT WITH [facility] ON Aug AT 0830 GAVE HIM THE ADDRESS AT [address] [place] [address] [place] ALSO THE PHONE NUMBER [phone] . I INSTRUCTED TO LOOK FOR HIS MEDICATION BOTTLE AND THAT I WOULD NOTIFY THE DOCTOR OF SITUATION. VERBALLY NOTIFIED DOCTOR CAROLINA OF SITUATION WHO STATED TO FIND OUT WHAT PHARMACY HE WOULD USE AND HE WILL SEND ANOTHER PRESCRIPTION IN BUT PLEASE LET PT KNOW HE WOULD HAVE TO PAY FOR IT, PT COULD USE [facility] TO HELP WITH COST. LOOKED IN PT CHART NO PHONE NUMBER NOTED EXCEPT FOR HIS FATHER LEFT MESSAGE FOR PT FATHER KRYSTINA TO CALL THAT WE ARE NEEDING A UPDATED PHONE NUMBER TO GET IN CONTACT WITH PATIENT.
== END 2023-08-11 16:53 | disposition home or self-care (01) | DRG 474 ==
LOC: ER 18:07 → NP 18:23 → MEDSURG 07-29 22:54 → NP 08-02 15:13
PROVIDERS: Family Medicine; Orthopaedic Surgery; Podiatrist Foot & Ankle Surgery; Student in an Organized Health Care Education/Training Program; Admitting Provider Psychiatry & Neurology Psychiatry; Emergency Provider Emergency Medicine; PCP Nurse Practitioner Family; Visit Provider Psychiatry & Neurology Psychiatry
PROC: 0Y6J0Z1 Detachment at Left Lower Leg, High, Open Approach (ICD-10-PCS; CPT 27880; principal; 2023-07-31 13:50)
DX: M86.162 Other acute osteomyelitis, left tibia and fibula (principal); A48.0 Gas gangrene; T81.31XA Disruption of external operation (surgical) wound, not elsewhere classified, initial encounter; L03.116 Cellulitis of left lower limb; F25.0 Schizoaffective disorder, bipolar type; Z59.00 Homelessness unspecified; F17.210 Nicotine dependence, cigarettes, uncomplicated; Y83.9 Surgical procedure, unspecified as the cause of abnormal reaction of the patient, or of later complication, without mention of misadventure at the time of the procedure; Z98.890 Other specified postprocedural states; S82.875 Nondisplaced pilon fracture of left tibia; S82.832S Other fracture of upper and lower end of left fibula, sequela; W17.89XS Other fall from one level to another, sequela; G89.29 Other chronic pain; M54.9 Dorsalgia, unspecified
CPT/HCPCS: 36415; 73590; 73610; 73700; 80053; 80061; 80202; 80306; 80307; 81001; 82607; 82746; 83036; 83735; 84100; 84145; 84443; 85007; 85025; 85027; 85651; 86140; 86850; 86900; 87040; 87070; 87075; 87077; 87186; 87205; 87641; 88307; 88311; 93005; 96372; 97110; 97116; 97140; 97150; 97161; 97165; 97530; 97535; 99285; J0131; J1100; J1170; J1650; J2250; J2405; J2543; J2795; J3010; J3370; J3486; J3490; J7030; P9045; Q0162

== ENCOUNTER 2023-08-14 13:02 | Emergency (ER) | payer MEDICARE, OTHER, MEDICAID, SELFPAY ==
[2023-08-14 13:07] VITALS: BP 141/102; PULSE 125; RESP 18; TEMP 36.7; O2SAT 96; BMI 27.2
[2023-08-14 13:13] VITALS: BP 141/102; PULSE 125; RESP 18; O2SAT 96
--- NOTE | 2023-08-14 13:18 | W.ED.PSYCHS ---
HPI - Psych General: Chief Complaint: Psychiatric Symptoms Stated Complaint: psych Source: patient and police Mode of arrival: other (Police Department) History of Present Illness: This patient was initially transported to the emergency department with the original intent of valuated him here for potential inpatient care. The patient has been discharged in this facility 3 days ago has a longstanding history of schizoaffective disorder with manic episodes. Allegedly today he prank called the [employer] threatening to shoot up to police and also stating that he was a [place] police officer. Eventually he was located by the [facility] as well as the local Police Department apprehended and transported to this facility. The patient states that he did prank call the police this morning. He states he did not take his Abilify this morning and did not sleep well last night. He denies any thoughts of harming himself. He otherwise states that he would like a soda and denies any other physical complaints. Associated symptoms: Reports homicidal ideation Review of Systems Const: Denies: fever(s) or chills ENMT: Denies: throat pain, odynophagia, nasal discharge or nasal congestion Card: Denies: chest pain Resp: Denies: dyspnea, productive cough or non-productive cough GI: Denies: nausea, vomiting or diarrhea Musc: Denies: neck pain or back pain Neuro: Denies: headache(s), numbness in extremities or weakness in extremities Psych: Reports: mood swings and homicidal ideation [facility] PFSH: Medical History Dehiscence of operative wound Fracture of sternum History of joanna Liver laceration Schizoaffective disorder, bipolar type Social History Smoking and tobacco status: former smoker Substance/Drug Use: unknown Caregiver/support person: No Housing: Homeless Physical Exam Narrative: EXAM NARRATIVE: The patient makes good eye contact quite engaging and pressured speech with flight of ideas. Const: COMMON NORMALS: average body habitus, healthy appearing and alert GENERAL APPEARANCE: anxious HENMT: COMMON NORMALS: normocephalic, Normal nasal mucous membranes and turbinates present and moist oral mucous membranes HEAD & SCALP: normocephalic FACE & SINUS: normal facial exam NOSE: Normal nasal mucous membranes and turbinates present Eye: COMMON NORMALS: Equal, round and reactive pupils present and EOMs intact bilaterally PUPIL: Yes Equal, round and reactive pupils present Neck/C-Spine: COMMON NORMALS: full ROM Chest: COMMONS NORMALS: normal inspection of the chest Resp: COMMON NORMALS: normal respiratory effort and clear to auscultation bilaterally EFFORT & INSPECTION: Yes able to speak in complete sentences AUSCULTATION: clear to auscultation bilaterally Cardio: COMMON NORMALS: regular rate and Peripheral pulses 2+ throughout RATE: regular rate PERIPHERAL PULSES: Peripheral pulses 2+ throughout : COMMON NORMALS: Yes no CVA tenderness BLADDER/KIDNEY EXAM: Yes no CVA tenderness Back/Pelvis: COMMON NORMALS: no CVA tenderness and thoracic and lumbar spine normal to inspection Extremity: COMMON NORMALS: capillary refill normal NARRATIVE EXTREMITY EXAM: Left BKA Neuro: COMMON NORMALS: moves all extremities, no focal motor deficits and no sensory deficits noted SENSORIUM/ORIENTATION: Yes alert Psych: ATTITUDE: Yes engaged ACTIVITY/MOTOR BEHAVIOR: Yes psychomotor agitation and Yes restless SPEECH: Yes excessive and Yes rapid MOOD & AFFECT: Yes elevated mood THOUGHT CONTENT: Yes Homicidality present Skin: COMMON NORMALS: no rashes or lesions noted GENERAL SKIN EXAM: no rashes or lesions noted Course Reevaluation(s): Reevaluation #1: Please department heart team custody this individual and transporting him to a secure facility for arrangement and incarceration based on his current legal status Time: 13:25 Vital Signs: Vital signs: Vital Signs Temperature 98.1 F 08/14/23 13:07 Pulse Rate 125 H 08/14/23 13:13 Respiratory Rate 18 08/14/23 13:13 Blood Pressure 141/102 08/14/23 13:13 Pulse Oximetry 96 08/14/23 13:13 Oxygen Delivery Me thod Room Air 08/14/23 13:13 MDM - Psych Medical Decision Making This patient was initially transported the emergency department for potential evaluation and admission. They had just been discharged from this facility 3 days ago. He allegedly was impersonating a state highway police officer as well as threatening the police department as a whole threatening to shoot them up. After intake interview was completed I was informed that the patient was going to be held on charges and transported to a secure facility and did not need to be admitted to this facility at this time. Medical Records I reviewed the patient's medical records. Recent hospitalization discharged on 08/05/2023 No radiology studies performed this visit Discharge Plan Discharge Clinical Impression: Schizoaffective disorder Condition: Stable Prescriptions: No Action aripiprazole 30 mg Tablet 30 mg PO DAILY 30 Days Qty: 30 1RF clonazepam 1 mg Tablet 1 mg PO BEDTIME Qty: 30 1RF olanzapine 5 mg Tablet 5 mg PO BEDTIME 30 Days Qty: 30 1RF (DME) Xeroform Petrolatum Dressing 4 X 4 bandage See Rx Instructions .Route Qty: 100 1RF Rx Instructions: As directed (DME) elastic bandage 3 X 1.9 -yard bandage See Rx Instructions .Route Qty: 5 2RF Rx Instructions: As directed (DME) gauze bandage 4 X 4 bandage See Rx Instructions .Route Qty: 25 0RF Rx Instructions: As directed Saline Wound Wash 0.9 % solution See Rx Instructions .ROUTE .COMPLEX Qty: 840 1RF Rx Instructions: Wash wound with dressing change Abilify 30 mg tablet 30 mg PO DAILY Qty: 30 1RF Zyprexa 5 mg tablet 5 mg PO QPM Qty: 30 1RF gabapentin 400 mg capsule 400 mg PO TID Qty: 90 1RF oxycodone 5 mg tablet 5 mg PO DIRECTED Qty: 18 0RF Rx Instructions: DAY 1-3: 1 tab three times a day, DAY 4-6: 1 tab twice a day, DAY 7-9: one tab daily, and discontinue Day 10 Referrals: Marielle Grant NP [Primary Care Provider] - Discharge Diet: Usual diet Discharge Activity: Resume usual activity Activity Restrictions/Additional Instructions: Patient should continue to take all his usual prescribed medications. If there is any worsening or changing symptoms he is welcome to return to the emergency department for reevaluation. Coding Level of Care Code ED Area Coordinator for Shahrzad Hutton
== END 2023-08-14 13:57 | disposition home or self-care (01) ==
PROVIDERS: Emergency Provider Emergency Medicine; PCP Nurse Practitioner Family
DX: F25.9 Schizoaffective disorder, unspecified (principal); Z89.512 Acquired absence of left leg below knee; Z87.891 Personal history of nicotine dependence
CPT/HCPCS: 99283

== ENCOUNTER 2023-09-20 13:47 | Inpatient (IN) | payer MEDICARE, OTHER, SELFPAY ==
--- NOTE | 2023-09-20 14:02 | PC.PHAR ---
pt was in [facility] [phone]-states all the pts meds were dced as of september 13 2023 states if a inmate refuses meds for 3 days in a role then they dc the med-states the pts abilify 30mg daily,zyprexa 5mg qpm and tylenol 1000mg bid was all dced -states pt not had meds since september 13
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
[2023-09-20] MEDS: LORazepam 1 mg Tablet PO (14:51)
--- NOTE | 2023-09-20 14:51 | W.ED.PSYCHS ---
HPI - Psych General: Chief Complaint: Psychiatric Symptoms Stated Complaint: 96 Hold Time Seen by Provider: 09/20/23 13:48 Source: police Limitations: no limitations History of Present Illness: 43-year-old male is here from halfway patient has been incarcerated and they state that he has been increasingly combative and making threats he has a history of schizoprhrenia and was placed him on a 96-hour hold and have him on a medical for low patient denies SI or HI does appear slightly manic here. Associated symptoms: Reports homicidal ideation; Deny depression Review of Systems Const: Denies: fever(s), chills, body aches or change in appetite ENMT: Denies: throat pain or dental pain Card: Denies: chest pain Resp: Denies: dyspnea GI: Denies: abdominal pain, nausea, vomiting or diarrhea Musc: Denies: neck pain or back pain Skin/Breast: Denies: rash Neuro: Denies: headache(s) Psych: Reports: mood swings, irritability and homicidal ideation; Denies: depression Eulogio/Lymph: Denies: easy bruising All/Imm: Denies: urticaria PFSH ED PFSH: Medical History Dehiscence of operative wound Fracture of sternum History of joanna Liver laceration Schizoaffective disorder, bipolar type Social History Smoking and tobacco/nicotine status: former use of tobacco/nicotine Substance/Drug Use: unknown Caregiver/support person: No Housing: Homeless Physical Exam Const: COMMON NORMALS: no acute distress, patient oriented x3 and healthy appearing HENMT: COMMON NORMALS: normocephalic and atraumatic HEAD & SCALP: normocephalic and atraumatic Eye: COMMON NORMALS: Equal, round and reactive pupils present and EOMs intact bilaterally PUPIL: Yes Equal, round and reactive pupils present Neck/C-Spine: COMMON NORMALS: full ROM and supple Chest: COMMONS NORMALS: normal inspection of the chest and normal palpation of entire chest wall Resp: COMMON NORMALS: normal respiratory effort, No retractions, No use of accessory muscles and clear to auscultation bilaterally AUSCULTATION: clear to auscultation bilaterally Cardio: COMMON NORMALS: regular rate, regular rhythm and No murmurs present (Cardio) RATE: regular rate RHYTHM: regular rhythm GI: COMMON NORMALS: Normal to inspection, nondistended, normoactive bowel sounds present, Soft to palpation, non-tender and no masses PALPATION: Yes Soft to palpation Extremity: COMMON NORMALS: normal to inspection and full ROM Neuro: COMMON NORMALS: patient oriented x3, moves all extremities and no focal motor deficits Psych: COMMON NORMALS: mental status grossly normal ATTITUDE: Yes bizarre MOOD & AFFECT: Yes elevated mood Skin: COMMON NORMALS: no rashes or lesions noted and no wounds GENERAL SKIN EXAM: no rashes or lesions noted MDM - Psych Medical Decision Making Patient presents here history schizophrenia along with acute psychosis he is placed under 96-hour hold will admit at this time. Medical Records I reviewed the patient's medical records. Lab Data I reviewed the patient's lab results. 09/20/23 16:18 09/20/23 16:18 Laboratory Results WBC 7.49 10^3/uL (3.29-11.43) 09/20/23 16:18 RBC 4.49 10^6/uL (3.85-5.65) 09/20/23 16:18 Hgb 13.00 g/dL (11.27-16.99) 09/20/23 16:18 Hct 39.7 % (37-53) 09/20/23 16:18 MCV 88.4 fl (82-101) 09/20/23 16:18 MCH 29.0 pg (27-33) 09/20/23 16:18 MCHC 32.7 g/dL (30-55) 09/20/23 16:18 RDW 15.6 % (12.1-15.1) H 09/20/23 16:18 Plt Count 315 10^3/cmm (157-399) 09/20/23 16:18 MPV 10.5 fL (7.4-10.4) H 09/20/23 16:18 Neut % (Auto) 65.0 % 09/20/23 16:18 Lymph % (Auto) 23.8 % 09/20/23 16:18 [place] % (Auto) 7.7 % 09/20/23 16:18 Eos % (Auto) 2.3 % 09/20/23 16:18 Baso % (Auto) 1.1 % 09/20/23 16:18 Neut # (Auto) 4.87 10^3/uL (1.8-7.7) 09/20/23 16:18 Lymph # (Auto) 1.8 10^3/uL (0.8-4.8) 09/20/23 16:18 [place] # (Auto) 0.6 10^3/uL (0.2-0.9) 09/20/23 16:18 Eos # (Auto) 0.2 10^3/uL (0.0-0.8) 09/20/23 16:18 Baso # (Auto) 0.1 10^3/uL (0.0-0.1) 09/20/23 16:18 Nucleated RBC % (auto) 0 % 09/20/23 16:18 Nucleated RBCs # 0.0 /100WBC 09/20/23 16:18 Sodium 141 mmol/L (136-145) 09/20/23 16:18 Potassium 3.9 mmol/L (3.5-5.1) 09/20/23 16:18 Chloride 105 mmol/L (98-107) 09/20/23 16:18 Carbon Dioxide 27 mmol/L (22-29) 09/20/23 16:18 Anion Gap 12.9 (5-19) 09/20/23 16:18 BUN 9 mg/dL (6-20) 09/20/23 16:18 Creatinine 0.6 mg/dL (0.7-1.2) L 09/20/23 16:18 GFR Calculation 145.7 mL/min (90-130) H 09/20/23 16:18 Glucose 83 mg/dL (65-115) 09/20/23 16:18 Calculated Osmolality 290 mOsm/kg (285-295) 09/20/23 16:18 Calcium 9.7 mg/dL (8.5-10.5) 09/20/23 16:18 Total Bilirubin 0.3 mg/dL (0.15-1.2) 09/20/23 16:18 AST 9 U/L (0-40) 09/20/23 16:18 ALT 11 U/L (0-41) 09/20/23 16:18 Alkaline Phosphatase 90 U/L (40-130) 09/20/23 16:18 Total Protein 6.7 g/dL (6.6-8.7) 09/20/23 16:18 Albumin 4.1 g/dL (3.5-5.2) 09/20/23 16:18 Globulin 2.6 g/dL (1.3-4.6) 09/20/23 16:18 Salicylates < 0.3 mg/dL (3-10) L 09/20/23 16:18 Acetaminophen < 5.0 ug/mL (10-30) L 09/20/23 16:18 Ethyl Alcohol < 10 mg/dL (0-10) 09/20/23 16:18 No radiology studies performed this visit Discharge Plan Discharge Patient Disposition: Admitted As Inpatient Admit Provider: Judd León Clinical Impression: Schizophrenia, Acute psychosis Condition: Stable Discharge Diet: Advance as tolerated Discharge Activity: Resume usual activity Coding Level of Care Code ED Gear Machine Operator General for Shahrzad Hutton
[2023-09-20 16:34] LABS: Basophils # 0.1 10^3/uL (0.0-0.1); Basophils % 1.1 %; Eosinophils # 0.2 10^3/uL (0.0-0.8); Eosinophils % 2.3 %; Hematocrit 39.7 % (37-53); Lymphocytes # 1.8 10^3/uL (0.8-4.8); Lymphocytes % 23.8 %; Mean Corpuscular HGB Conc 32.7 g/dL (30-55); Mean Corpuscular Volume 88.4 fl (82-101); Mean Platelet Volume 10.5 fL (7.4-10.4); Monocytes # 0.6 10^3/uL (0.2-0.9); Monocytes % 7.7 %; Neutrophils # 4.87 10^3/uL (1.8-7.7); Nucleated Red Blood Cells % 0 %; Platelet Count 315 10^3/cmm (157-399); Red Blood Count 4.49 10^6/uL (3.85-5.65); Red Cell Distribution Width 15.6 % (12.1-15.1); White Blood Count 7.49 10^3/uL (3.29-11.43)
[2023-09-20 17:01] LABS: Alanine Aminotransferase 11 U/L (0-41); Albumin Level 4.1 g/dL (3.5-5.2); Alkaline Phosphatase 90 U/L (40-130); Anion Gap 12.9 (5-19); Aspartate Amino Transferase 9 U/L (0-40); Blood Urea Nitrogen 9 mg/dL (6-20); Calcium 9.7 mg/dL (8.5-10.5); Carbon Dioxide 27 mmol/L (22-29); Chloride 105 mmol/L (98-107); Globulin 2.6 g/dL (1.3-4.6); Glomerular Filtration Rate 145.7 mL/min (90-130); Glucose 83 mg/dL (65-115); Osmolality Calculated 290 mOsm/kg (285-295); Potassium 3.9 mmol/L (3.5-5.1); Sodium 141 mmol/L (136-145); Total Bilirubin 0.3 mg/dL (0.15-1.2); Total Protein 6.7 g/dL (6.6-8.7)
[2023-09-20 17:03] LABS: Acetaminophen < 5.0 ug/mL (10-30); Alcohol Level < 10 mg/dL (0-10); Salicylate < 0.3 mg/dL (3-10)
[2023-09-20] MEDS: ARIPiprazole Maintena 400 MG IM (18:04)
[2023-09-20 20:28] VITALS: BP 119/75; PULSE 89; RESP 18; TEMP 36.4; O2SAT 95
[2023-09-20 20:30] VITALS: RESP 16
--- NOTE | 2023-09-20 21:35 | PC.ADMIT ---
[email or web address] Admission Note: The patient,Rigo Srivastava,43 y/o, was given written information regarding hospital policies, unit procedures and contact persons. Patient's smoking status: former smoker. Vital Signs - 8 hr 09/20/23 20:30 09/20/23 20:50 09/20/23 20:28 Temperature 97.6 F Pulse Rate 89 Respiratory Rate 16 18 Blood Pressure 119/75 Pulse Oximetry 95 Oxygen Delivery Method Room Air Room Air PT ADMITTED FROM ER AT 2024 VIA WHEELCHAIR AND SECURITY. PT IS ON A 96 HOUR HOLD DUE TO THREATENING LAW ENFORCEMENT AND OTHER FACILITIES. WHEN PT ASKED WHY HE WAS HERE PT STATED I DON'T KNOW MAN. PT IS RUDE, YELLS AT STAFF AND CUSSES AT STAFF UPON ADMISSION. STATES YOUR VANDANA I ONLY I HAVE ONE LEG OR IT WOULD BE BAD FOR YOU. PT WAS ASKED TO REFRAIN FROM THREATENING STAFF, CUSSING AT STAFF AND BEING RUDE TO STAFF AND OTHERS. PT INFORMED RN THAT I HAVE FUCKING CLONEZAPAM IN MY BAG AND YOU NEED TO FUCKING GO GET IT AND GIVE IT TO ME. PT WAS EDUCATED THAT WE CAN NOT GIVE MEDICATIONS WITHOUT AN ORDER. PT STATED WELL CALL THE FUCKING DR AND GIVE IT TO ME MAN. PT MEDICATIONS WERE REVIEWED AND PT IS ONLY PRESCRIBED ABILIFY 15 MG AND ABILIFY 400 MG IM, WHICH HE RECEIVED TODAY. PT IS UNCOOPERATIVE STATED YOU ALL ARE PLAYING FUCKING HEAD GAMES. PT WAS INFORMED NO ONE IS PLAYING HEAD GAMES WE ASK ALL PTS THESE QUESTIONS. PT STATED HE HAS USED DRUGS AND ALCOHOL FOR 34 YEARS, BUT WILL NOT ANSWER THE SUBSTANCE ABUSE QUESTIONS, STATING I REFUSE TO ANSWER THAT SHIT. SKIN ASSESSMENT COMPLETED, SCARRING NOTED TO LOWER BACK FROM SURGERY AND PT HAS A LEFT BELOW THE KNEE AMPUTATION. DENIES PAIN. DENIES SI/HI AND AVH AT THIS TIME. PT REFUSED TO SIGN ANY PAPERWORK AT TIME OF ADMISSION. HE IS ON A 96 HOUR HOLD THAT ENDS 09/26/23 AT 1416. PT HAS BEEN SEEN HERE AT THE [facility] ONCE BEFORE. DENIES ANY OUTPATIENT MENTAL HEALTH TREATMENT. ORIENTATED TO UNIT/SAFETY RULES/MEALS/SNACK TIMES/MED TIMES ETC. ALL QUESTIONS ANSWERED AND SUPPORT WAS VOICED. LAST BM REPORTED WAS 09/20/23. PT LOCOMOTES WITH HIS WHEELCHAIR AND IS STANDBY ASSIST WHEN TRANSFERRING.
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
--- NOTE | 2023-09-21 04:54 | PC.NURSE ---
PT UP TO NURSES STATION YELLING AND CUSSING AT STAFF. PT IS DEMANDING HE BE GIVEN HIS NOTEBOOKS THAT I'M MAKING NOTES IN FOR MY TRIAL, PT WAS EDUCATED THAT HE CAN NOT HAVE ANY HARD COVER NOTEBOOKS LIKE HE HAD IN HIS PROPERTY. PT CONTINUED TO TELL STAFF TO FUCK OFF. PT WAS INFORMED HE COULD SPEAK TO DR JERNIGAN ABOUT GETTING ANY PAPERWORK FOR HIS TRIAL. PT STATED AGAIN FUCK DR. JERNIGAN AND FUCK YOU FAT BITCHES. PT WAS ENCOURAGED TO REFRAIN FROM CUSSING AT STAFF. PT STATED HE WANTED HIS CLONAZEPAM THAT WAS IN HIS BAGS. PT WAS AGAIN EDUCATED THAT ANY MEDICATIONS WILL HAVE TO BE WRITTEN DOWN AND THEN THE DROscar WILL RESTART IF NEEDED. THE ONLY MEDICATIONS FOUND IN PT BELONGINGS WERE ABILIFY 15 MG AND ZYPREXA 5 MG. THERE WAS NOT ANY BOTTLE OF CLONAZEPAM FOUND. MEDICATION LIST REVIEWED AND THE LAST TIME PT HAD CLONAZEPAM FILLED WAS IN [facility] 2021, PT HAS NO CURRENT ACTIVE PRESCRIPTION FOR CLONAZEPAM AT THIS TIME.
--- NOTE | 2023-09-21 05:08 | PC.NURSE ---
Pt came up to nurses station yelling that we are trying to separate him and his notes that he has made for trial. Pt was educated that he was not allowed to have it bc it is a hardcover notebook but it was in his belongings in a safe spot. Pt continued to yell and cuss saying that we just wanted to read his notes. Pt was informed that we in fact did not want to read his notebook, he just could not have it due to it being a hardcover. Pt told staff to fuck off yosef bond and fuck you bitches . Pt then wheeled back to his room.
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
[2023-09-21 14:00] VITALS: BP 122/75; PULSE 100; RESP 20; TEMP 37.1; O2SAT 95
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
[2023-09-21] MEDS: haloperidol inj 5 mg/mL INJ 1 mL IM (16:01)
[2023-09-21] MEDS: LORazepam 2 mg/mL INJ 1 mL IM (16:01)
--- NOTE | 2023-09-21 16:02 | PC.NURSE ---
administered 2mg ativan and 5mg haldol IM to patient's right and left deltoid muscles. \Patient now resting in bed. NPU staff was assisted by security systems sales representative. Patient has been yelling at staff, cursing at staff. Patient stated that you are not going to shut me up . After administration of injections, patient spat at staff. Patient currently laying in his bed. no distress visualized.
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
[2023-09-21 20:02] VITALS: RESP 16
[2023-09-22 06:00] VITALS: RESP 16
--- NOTE | 2023-09-22 08:00 | PC.NURSE ---
DURING ASSESSMENT THIS NURSE ASKED PT IF HE WAS HAVING THOUGHTS OF HARMING HIMSELF OR OTHERS. PT STATED YEAH I WANT TO HURT YA. I WANT TO KILL ALL OF YOU. WHEN [place] TAKES OVER I WILL KILL YOU. UNLESS THEY KILL ME FIRST BUT IF THEY DON'T ILL KILL YOU. YOU WILL BE . THIS NURSE DECIDED IT WAS BEST TO NOT ACKNOWLEDGE THE THREATS BASED OFF OF PT BEHAVIOR AND SIMPLY STATED THAT IF THE PT NEEDED ANYTHING TO LET STAFF KNOW SO THEY COULD ASSIST HIM. PT DID ALLOW THIS NURSE TO PERFORM ASSESSMENT BUT WAS INITIALLY RESISTIVE TO CARE. PT CURRENTLY IN HIS ROOM. PT CURRENT NEEDS ARE MET AT THIS TIME.
[2023-09-22] MEDS: ARIPiprazole 30 mg Tablet 15 MG PO (09:29)
[2023-09-22] MEDS: benztropine 1 mg/mL SDV 2 mL IM (09:40)
[2023-09-22] MEDS: haloperidol inj 5 mg/mL INJ 1 mL IM (09:40)
[2023-09-22] MEDS: LORazepam 2 mg/mL INJ 1 mL IM (09:40)
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
[2023-09-22 14:00] VITALS: RESP 16
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
[2023-09-22] MEDS: CLONazepam 1 mg Tablet PO (19:58)
[2023-09-22 20:11] VITALS: RESP 16
--- NOTE | 2023-09-22 20:49 | PC.NURSE ---
IN BED, DEMANDING CLONEZPAM. STATES NO ONE WILL GIVE MY FUCKING MEDICINE AND THATS ALL THE HELPS ME SLEEP. PT WAS EDUCATED THAT HE DOES HAVE CLONEZPAM ONE MG ORDERED AND HE CAN COME GET IT IN 15 MINUTES. PT THEN CALMED DOWN AND DROPPED HIS ATTITUDE. PT DENIES SI/HI AND AVH AT THIS TIME. REPORTS STUMP PAIN 10/10 BUT REFUSES TYLENOL AND IBUPROFEN, STATES I WILL ONLY TAKE PERCOCET. PT WAS EDUCATED THAT HE DOES NOT HAVE PERCOCET ORDERED. SUPPORT VOICED.
[2023-09-23 06:00] VITALS: BP 119/81; PULSE 107; RESP 16; O2SAT 98
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
[2023-09-23] MEDS: ARIPiprazole 30 mg Tablet 15 MG PO (07:33)
[2023-09-23] MEDS: LORazepam 2 mg/mL INJ 1 mL IM ×2 (08:16→18:24)
[2023-09-23] MEDS: benztropine 1 mg/mL SDV 2 mL IM ×2 (08:23→17:40)
[2023-09-23] MEDS: haloperidol inj 5 mg/mL INJ 1 mL IM ×2 (08:23→18:24)
--- NOTE | 2023-09-23 08:30 | W.PM.BREST ---
Face to Face: Restrn/Seclusion Events leading up to initiation: Verbalizing threat to self or others and Combative/Striking out at staff or others Evaluation of patient's immediate situation: Alert and oriented and Signs of psychological distress Patient reaction since intervention applied: Behaviors/threats have lessened, but still present Recent labs reviewed: Yes Review of medications: Yes Patient's current medical/behavioral condition: No new concerns since last ROS Need for restraint or seclusion is: Continued Attending notified: Attending completed assessment
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
--- NOTE | 2023-09-23 10:01 | PC.NURSE ---
seclusion discontinued at 0900. pt behavior no longer warrants pt to be in seclusion. pt verbal contracted to staff to attempt to be better.
[2023-09-23 14:00] VITALS: RESP 16
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
[2023-09-23 20:16] VITALS: BP 103/64; PULSE 100; RESP 16; TEMP 36.9; O2SAT 97
--- NOTE | 2023-09-23 20:52 | PC.NURSE ---
PT CONTINUES TO BE DEMANDING WITH STAFF, DEMANDING I GET MY CLONZEPAM NOW, I'M NOT WAITING TIL 900. PT INFORMED THAT THIS RN CAN GIVE IT AT 1999 BUT THAT IS THE EARLIEST. PT SPED OFF IN WHEELCHAIR AND WENT TO ROOM MAD AND UPSET. PT WAS INFORMED HE CAN COME GET HIS BEDTIME MEDS ANYTIME BUT HAS NOT DONE SO OF YET. PT DENIES PAIN. DENIES SI/HI AND AVH. PT CONTINUES TO BE RUDE WITH STAFF. SUPPORT VOICED.
[2023-09-23] MEDS: CLONazepam 1 mg Tablet PO (21:46)
[2023-09-24] MEDS: LORazepam 2 mg/mL INJ 1 mL IM ×2 (07:31→19:22)
[2023-09-24] MEDS: benztropine 1 mg/mL SDV 2 mL IM ×2 (07:32→19:23)
[2023-09-24] MEDS: haloperidol inj 5 mg/mL INJ 1 mL IM ×2 (07:32→19:22)
--- NOTE | 2023-09-24 08:54 | W.PM.NPUPNS ---
Subjective NPU Subjective: Patient presented today reporting that he is trying to work out this case he has against him. He continues to have significant paranoia and anger outbursts per staff and direct observation. He continues to require seclusion and as needed medication with pounding on glass, getting Ancef, cursing and getting the unit revved up. We discussed trying to balance his need for psychiatric inpatient care, what the [facility] could provide that his long-acting injection has been administered and they would have someone following him to make adjustments. Mental Status Exam MSE Comments: This is an overweight white male in hospital scrubs with limited grooming but adequate eye contact. 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 No abnormal movements except for significant psychomotor agitation. Mostly uncooperative with exam in moderate to extreme distress. Speech was increased rate and volume and pressured. Mood not specifically described affect hyper/manic. Thought process linear at times but organized with tangentiality and some stream of consciousness. Thought content: Patient denied suicidal but endorsed some homicidal ideation, there were no delusions reported but clear paranoid, persecutory and grandiose delusions noted some possibly bizarre delusions as well, he denied auditory or visual hallucinations. Attention and concentration were limited and memory appeared intermittently reliable but none were formally tested. He is alert and oriented times person and place. Insight, judgment and impulse control impaired. Vitals/I&O/Wt Last Vital Signs Temp 98.5 F 09/23/23 20:16 Pulse 100 09/23/23 20:16 Resp 16 09/23/23 20:16 BP 103/64 09/23/23 20:16 Pulse Ox 97 09/23/23 20:16 O2 Del Method Room Air 09/23/23 20:16 Data NPU 09/20/23 16:18 09/20/23 16:18 A&P Assessment and plan (1) Mariaa: (2) History of mariaa: (3) Schizoaffective disorder, bipolar type: (4) Postoperative external wound disruption: Plan This is a 43 -year-old, white male, with history of multiple hospitalizations and outpatient services and multiple medication trials with 2 inpatient stay here and some distant outpatient services here who presents with history of addiction without current use secondary to incarceration and past mental health challenges with clear mariaa on presentation here with history of mariaa which was well treated by Abilify last visit and having had a 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 1. Restart Abilify 15 mg p.o. daily for 13 days as he did receive the Abilify Maintena injection in the emergency department 09/20/2023. 2. Encourage individual, group, and milieu therapy. 3. Continue q-15-minute checks for safety. 4. We will attempt to stabilize him and then coordinate return back to [facility] from this current medical furlough. Involuntary Hold Information 96 Hour Hold: 96 Hour Involuntary Admission: Yes 96 Hour Hold Ending Date: 09/26/23 96 Hour Hold Ending Time: 14:16 Attestations NPU Medical Necessity Statement*: Inpatient hospitalization is medically necessary and the clinically appropriate intervention, at this time. We will monitor medications and make changes as indicated. Likely length of stay is 3-5 days. Coding Level of Care Code Acute Code for Chg Fwd Diagnoses Mariaa F30.9 History of mariaa Z86.59 Schizoaffective disorder, bipolar type F25.0 Postoperative external wound disruption T81.31XA
[2023-09-24] MEDS: ARIPiprazole 30 mg Tablet 15 MG PO (09:15)
--- NOTE | 2023-09-24 16:59 | PC.NURSE ---
PT NEAR THE NURSES STATION AND STATED TO THIS NURSE WHEN I FIND YOU OUTSIDE OF THIS HOSPITAL I HOPE I HAVE A SHOT GUN SO THAT WAY BOOM I CAN BLOW YOUR FUCKING BRAINS OUT THIS NURSE WALKED AWAY FROM THE SITUATION THE PT BECOMES INCREASINGLY MORE AGITATED WHEN GIVEN A RESPONSE TO THESE STATEMENTS. PT THEN WENT TO THE PHONE AND BEGAN BEATING THE PHONE AND ATTEMPTING TO PULL THE PHONE FROM ITS BASE. WHE INSTRUCTED NOT TO DO THIS PT STATED WHAT ARE YOU GOING TO DO ABOUT IT. PT WAS INFORMED THAT THE HOSPITAL RETAINS THE RIGHTS TO FILE DESTRUCTION OF PROPERTY CHARGES IF THEIR PROPERTY IS DAMAGED. PT THEN RESPONDED WITH WHAT IS THAT 20 YEARS I DONT CARE. BUT THEN WENT INTO THE DAYROOM.
[2023-09-24] MEDS: CLONazepam 1 mg Tablet PO (21:29)
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
--- NOTE | 2023-09-24 22:40 | PC.NURSE ---
AT APPROXIMATELY 2130 PT CAME UP TO NURSES STATION DEMANDING HIS CLONAZPAM, WHICH WAS GIVEN. PT STAYED UP AT THE NURSES STATION FOR APPROXIMATELY 15 MINUTES HARASSING STAFF, MAKING RUDE COMMENTS TO THEM AND LAUGHING. PT WAS GIVEN A SNACK AND DRINK REQUESTED. PT WAS MUMBLING STATING MY HEADS MESSED UP AFTER WHAT YOU GAVE ME CAN YOU GIVE ME SOME MORE. PT WAS INFORMED HE JUST HAD HIS CLONAZEPAM AND HE NEEDED TO LET IT KICK IN. PT CONTINUE TO LAUGH AT STAFF MUMBLING THINGS THAT COULD NOT BE UNDERSTOOD. PT WAS REDIRECTED TO HIS ROOM TO SLEEP. PT YELLED THEN ROLLED OFF IN WHEELCHAIR TO ROOM.
[2023-09-25] MEDS: ARIPiprazole 30 mg Tablet 15 MG PO (07:56)
--- NOTE | 2023-09-25 12:19 | W.PM.NPUPNS ---
Subjective NPU Subjective: Patient presents today continuing to have moments of escalation but seeming to start to be less irritable per staff reports and direct observation. He continues to endorse feelings that people are doing things because they are out to get him consistent with his paranoia. He continues to endorse a desire to return to [facility] and we discussed the fact that we would likely discharge in the next few hours. Mental Status Exam MSE Comments: This is an overweight white male in hospital scrubs with limited grooming but adequate eye contact. 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 No abnormal movements except for significant psychomotor agitation. Mostly uncooperative with exam in moderate to extreme distress. Speech was increased rate and volume and pressured. Mood not specifically described affect hyper/manic. Thought process linear at times but organized with tangentiality and some stream of consciousness. Thought content: Patient denied suicidal but endorsed some homicidal ideation, there were no delusions reported but clear paranoid, persecutory and grandiose delusions noted some possibly bizarre delusions as well, he denied auditory or visual hallucinations. Attention and concentration were limited and memory appeared intermittently reliable but none were formally tested. He is alert and oriented times person and place. Insight, judgment and impulse control impaired. Vitals/I&O/Wt Last Vital Signs Temp 98.5 F 09/23/23 20:16 Pulse 100 09/23/23 20:16 Resp 16 09/23/23 20:16 BP 103/64 09/23/23 20:16 Pulse Ox 97 09/23/23 20:16 O2 Del Method Room Air 09/23/23 20:16 Data NPU 09/20/23 16:18 09/20/23 16:18 A&P Assessment and plan (1) Mariaa: (2) History of mariaa: (3) Schizoaffective disorder, bipolar type: (4) Postoperative external wound disruption: Plan This is a 43 -year-old, white male, with history of multiple hospitalizations and outpatient services and multiple medication trials with 2 inpatient stay here and some distant outpatient services here who presents with history of addiction without current use secondary to incarceration and past mental health challenges with clear mariaa on presentation here with history of mariaa which was well treated by Abilify last visit and having had a 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 1. Restart Abilify 15 mg p.o. daily for 9 days as he did receive the Abilify Maintena injection in the emergency department 09/20/2023. 2. Encourage individual, group, and milieu therapy. 3. Continue q-15-minute checks for safety. 4. We will attempt to stabilize him and then coordinate return back to [facility] from this current medical furlough. Involuntary Hold Information 96 Hour Hold: 96 Hour Involuntary Admission: Yes 96 Hour Hold Ending Date: 09/26/23 96 Hour Hold Ending Time: 14:16 Attestations NPU Medical Necessity Statement*: Inpatient hospitalization is medically necessary and the clinically appropriate intervention, at this time. We will monitor medications and make changes as indicated. Likely length of stay is 2-4 days. Coding Level of Care Code Acute Code for g Fwd Diagnoses Mariaa F30.9 History of mariaa Z86.59 Schizoaffective disorder, bipolar type F25.0 Postoperative external wound disruption T81.31XA
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
[2023-09-25 14:00] VITALS: RESP 18
--- NOTE | 2023-09-25 14:04 | PC.NURSE ---
PT REFUSED 1400 VITALS, RESPIRATIONS WERE OBTAINED. WILL CONTIUNE TO MONITOR.
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
--- NOTE | 2023-09-25 15:42 | PC.NURSE ---
PT CAME UP TO THE NURSES STATION AND CALLED ISAÍAS ZAFAR NEEDLE LOOM OPERATOR STATING THAT HE WAS GOING TO MAKE IT TO WHERE SHE COULD NOT WALK ANYMORE. WHEN ISAÍAS DEFLECTED THIS COMMENT PT STARTED BANGING ON THE GLASS TO THIS NURSES STATION. THIS NURSE TOLD THE PT TO STOP HITTING THE GLASS HE THEN WENT AWAY MOMENTARILY.
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
[2023-09-25] MEDS: LORazepam 2 mg/mL INJ 1 mL IM (16:58)
[2023-09-25] MEDS: benztropine 1 mg/mL SDV 2 mL IM (16:58)
[2023-09-25] MEDS: haloperidol inj 5 mg/mL INJ 1 mL IM (16:58)
[2023-09-25 20:02] VITALS: RESP 16
[2023-09-25] MEDS: CLONazepam 1 mg Tablet PO (22:06)
[2023-09-26 06:00] VITALS: RESP 16
--- NOTE | 2023-09-26 10:09 | PC.NURSE ---
REFUSED SCHEDULED ABILIFY
--- NOTE | 2023-09-26 11:42 | W.PM.NPUPNS ---
Subjective NPU Subjective: Patient presented today continuing to struggle with separation of his legal battles with the court and present and his civil legal concerns related to 96-hour hold and 21-day hold. He continues to ask about this hand sign writer and competency evaluation. He continued to discuss that this hand sign writer will not and has never had any role in a competency determination. We discussed that our goal is treating his clear mariaa and assisting him in returning from his furlough without any additional problems. We discussed the 21-day hold being submitted and our belief that he needs more time to make some very critical decisions of returning from his furlough and continuing the medication. Mental Status Exam MSE Comments: This is an overweight white male in hospital scrubs with limited grooming but adequate eye contact. 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 No abnormal movements except for significant psychomotor agitation. More cooperative with exam in mild to moderate distress with clear decreased and the most extreme outbursts. Speech was increased rate and volume and pressured. Mood not specifically described affect hyper/manic. Thought process linear at times but organized with tangentiality and some stream of consciousness. Thought content: Patient denied suicidal but endorsed some homicidal ideation, there were no delusions reported but clear paranoid, persecutory and grandiose delusions noted some possibly bizarre delusions as well, he denied auditory or visual hallucinations. Attention and concentration were limited and memory appeared intermittently reliable but none were formally tested. He is alert and oriented times person and place. Insight, judgment and impulse control impaired. Vitals/I&O/Wt Last Vital Signs Temp 98.5 F 09/23/23 20:16 Pulse 100 09/23/23 20:16 Resp 16 09/26/23 06:00 BP 103/64 09/23/23 20:16 Pulse Ox 97 09/23/23 20:16 O2 Del Method Room Air 09/23/23 20:16 Data NPU 09/20/23 16:18 09/20/23 16:18 A&P Assessment and plan (1) Mariaa: (2) History of mariaa: (3) Schizoaffective disorder, bipolar type: (4) Postoperative external wound disruption: Plan This is a 43 -year-old, white male, with history of multiple hospitalizations and outpatient services and multiple medication trials with 2 inpatient stay here and some distant outpatient services here who presents with history of addiction without current use secondary to incarceration and past mental health challenges with clear mariaa on presentation here with history of mariaa which was well treated by [facility] last visit and having had a 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 1. Restart Abilify 15 mg p.o. daily for 8 days as he did receive the Abilify Maintena injection in the emergency department 09/20/2023. 2. Encourage individual, group, and milieu therapy. 3. Continue q-15-minute checks for safety. 4. We will attempt to stabilize him and then coordinate return back to intermediate from this current medical furlough. Alf refusing to take him back and reporting they will allow him to discharge on his own reconnaissance regardless of his clear psychotic state. 21-day hold paperwork was filed today. Given the intermediate not taking him back to structured environment we will continue to treat his mariaa until he is at a more reasonable more functional state. Involuntary Hold Information 96 Hour Hold: 96 Hour Involuntary Admission: Yes 96 Hour Hold Ending Date: 09/26/23 96 Hour Hold Ending Time: 14:16 Attestations NPU Medical Necessity Statement*: Inpatient hospitalization is medically necessary and the clinically appropriate intervention, at this time. We will monitor medications and make changes as indicated. Likely length of stay is 2-4 days. Coding Level of Care Code Acute Code for g Fwd Diagnoses Mariaa F30.9 History of mariaa Z86.59 Schizoaffective disorder, bipolar type F25.0 Postoperative external wound disruption T81.31XA
[2023-09-26 14:00] VITALS: BP 125/86; PULSE 92; RESP 15; TEMP 36.7; O2SAT 97
--- NOTE | 2023-09-26 16:52 | XRR_ITS ---
PROCEDURE INFORMATION: Exam: XR Left Tibia and Fibula Exam date and time: 09/26/2023 6:08 PM Age: 43 years old Clinical indication: Pain; Lower leg; Left; Prior surgery; Surgery date: 6+ months; Surgery type: Lt bka; Additional info: Pain following being dropped on stump on oct 2, patient reports pain TECHNIQUE: Imaging protocol: Radiologic exam of the left tibia and fibula. Views: 2 views. COMPARISON: CR (LOW EXM, ) 07/22/2023 6:31 PM FINDINGS: Bones/joints: No fracture or dislocation or osseous destruction. Sharp resection margins. Soft tissues: No soft tissue gas. XR/XR tibia fibula LT 2V [id number] IMPRESSION: No acute findings.
--- NOTE | 2023-09-26 17:25 | PC.NURSE ---
patient insists that he is on gabapentin. this nurse called [facility], but no record. patient is going to call his retirement about this. no record found.
[2023-09-26] MEDS: CLONazepam 1 mg Tablet PO (20:03)
--- NOTE | 2023-09-26 21:09 | PC.NURSE ---
pt refused to obtain vital signs, threatening.
--- NOTE | 2023-09-26 22:48 | PC.NURSE ---
When completing pt assessment at the beginning of shift, pt states that it is staffs fault why he is like this. Pt because extremely agitated, yelling give me my fucking pill . Explained that it was not available for administration at that time and exited pt room as he began to ignore this fiction and nonfiction prose writer. Within 5 minutes pt was at the nurses station threatening to kill every staff member on the unit again, and to give him his fucking pills. Again stated to pt that the medication was not available for administration until after 8. Security called d/t pt agitation level, pt quit yelling and waiting for his medication. Pt then returned to his room.
[2023-09-27 06:00] VITALS: RESP 16
[2023-09-27] MEDS: gabapentin 100 mg Capsule PO (09:13)
[2023-09-27] MEDS: ARIPiprazole 30 mg Tablet 15 MG PO (09:14)
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
[2023-09-27 13:30] VITALS: RESP 16; TEMP 37.1
--- NOTE | 2023-09-27 14:51 | DCPLANNER ---
IMM was printed and given to pt and copy placed in pts file.
== END 2023-09-27 13:42 | disposition home or self-care (01) | DRG 885 ==
LOC: ER 17:17 → NP 18:23
PROVIDERS: Admitting Provider Psychiatry & Neurology Psychiatry; Emergency Provider Emergency Medicine; PCP Nurse Practitioner Family; Visit Provider Psychiatry & Neurology Psychiatry
DX: F30.9 Manic episode, unspecified (principal); F25.0 Schizoaffective disorder, bipolar type; Z87.891 Personal history of nicotine dependence; Z91.128 Patient's intentional underdosing of medication regimen for other reason; R45.850 Homicidal ideations; Z89.9 Acquired absence of limb, unspecified; M79.662 Pain in left lower leg; T43.596A Underdosing of other antipsychotics and neuroleptics, initial encounter
CPT/HCPCS: 36415; 73590; 80053; 80307; 85025; 96372; 97165; 99285; J0515; J1630; J2060